=== PATIENT | male | born 1955 | race Caucasian/White ===

== ENCOUNTER 2017-06-14 05:54 | Inpatient (IN) | payer MEDICARE ==
[2017-06-14] MEDS ORDERED: Nitroglycerin 2% Oint 1 GM UD Packet ONE (06:01)
[2017-06-14] MEDS ORDERED: Nitroglycerin 0.4 MG Tab.SL ONE (06:01)
[2017-06-14] MEDS: Albuterol/Ipratropium 3.0-0.5 MG/3 ML Neb Soln ONE ×2 (06:02→07:01)
[2017-06-14] MEDS ORDERED: Nitroglycerin 0.4 MG Tab.SL SL PRN (06:08)
[2017-06-14] MEDS ORDERED: Albuterol/Ipratropium 3.0-0.5 MG/3 ML Neb Soln NEB ONE (06:08)
[2017-06-14] MEDS ORDERED: Nitroglycerin 2% Oint 1 GM UD Packet TOP ONE (06:09)
[2017-06-14] MEDS ORDERED: Sodium Chloride 0.9% 1,000 ML IV ONE (06:11)
[2017-06-14] MEDS ORDERED: Lidocaine 1% 20 ML MDV ONE ×4 (06:23→12:24)
[2017-06-14] MEDS ORDERED: HYDROmorphone 2 MG/ML Syringe IVPUSH ONE (06:30)
[2017-06-14] MEDS ORDERED: HYDROmorphone 2 MG/ML Syringe ONE (06:32)
[2017-06-14 06:36] LABS: CHLORIDE,CL 108 mmol/L (98-110); SODIUM,NA 144 mmol/L (136-146)
--- NOTE | 2017-06-14 07:04 | EDM.PDOC ---
ED HPI GENERAL MEDICAL PROBLEM - General Chief Complaint: Chest Pain Stated Complaint: HARD TIME BREATHING Time Seen by Provider: 06/14/17 06:00 Source of Information: Reports: Patient, RN - History of Present Illness INITIAL COMMENTS - FREE TEXT/NARRATIVE: He presented by private vehicle with complaint of chest pain and marked dyspnea this am. He smokes 2 packs per day. chest Pain Score (Numeric/FACES): 10 - Related Data Allergies Allergy/AdvReac Type Severity Reaction Status Date / Time No Known Allergies Allergy Verified 06/14/17 06:03 Home Meds: Home Meds Morphine [MS Contin] 60 mg PO TID 06/14/17 [History] oxyCODONE 5 mg PO TID 06/14/17 [History] ED ROS GENERAL - Review of Systems Review Of Systems: See Below Constitutional: Denies: Fever, Chills Respiratory: Reports: Shortness of Breath, Cough Cardiovascular: Reports: Chest Pain GI/Abdominal: Denies: Abdominal Pain, Black Stool, Bloody Stool, Hematemesis : Denies: Dysuria ED EXAM, GENERAL - Physical Exam Exam: See Below Free Text/Narrative:: alert appears to be in distress heart rrr without m lungs: decreased breath sounds over the right chest no ankle edema ED RESPIRATORY PROCEDURES - Additional/Other Procedure(s) Other (Free Text) Procedure(s): after verbal informed consent and infiltrative local anesthesia a 28 gh[place]ian right chest tube placed using standard technique. He tolerated the procedure without complications. post procedure chest xray shows reinflaton of the lung he feels better post procedure Dr Lorenzo Figueroa was consulted by phone by DR Frank Medina and agrees to accept admission. Course - Vital Signs Last Recorded V/S: Last Vital Signs Temp 97.6 F 06/14/17 06:05 Pulse 115 H 06/14/17 06:05 Resp 30 H 06/14/17 06:05 BP 111/75 06/14/17 06:10 Pulse Ox 80 L 06/14/17 06:05 - Orders/Labs/Meds Orders: Active Orders 24 hr Category Date Time Status EKG Documentation Completion [RC] STAT Care 06/14/17 06:09 Active RT Aerosol Therapy [RC] ASDIRECTED Care 06/14/17 06:09 Active Chest 1V Frontal [CR] Stat Exams 06/14/17 06:09 Taken Nitroglycerin [Nitrostat] Med 06/14/17 06:08 Active 0.4 mg SL Q5M PRN Sodium Chloride 0.9% [Normal Saline] 1,000 ml Med 06/14/17 06:11 Active IV .BOLUS Medication Orders Sodium Chloride (Normal Saline) 1,000 mls @ 999 mls/hr IV .BOLUS ONE Stop: 06/14/17 07:11 Last Admin: 06/14/17 06:12 Dose: 999 mls/hr Nitroglycerin (Nitrostat) 0.4 mg SL Q5M PRN PRN Reason: Chest Pain Last Admin: 06/14/17 06:05 Dose: 0.4 mg Labs: Laboratory Tests 06/14/17 06/14/17 06/14/17 Range/Units 06:00 06:00 06:00 WBC 10.88 (4.0-11.0) K/uL RBC 4.08 L (4.50-5.90) M/uL Hgb 15.6 (13.0-17.0) g/dL Hct 43.4 (38.0-50.0) % MCV 106.4 H (80.0-98.0) fL MCH 38.2 H (27.0-32.0) pg MCHC 35.9 (31.0-37.0) g/dL RDW Std Deviation 54.0 (28.0-62.0) fl RDW Coeff of Rommel 14 (11.0-15.0) % Plt Count 209 (150-400) K/uL MPV 10.70 (7.40-12.00) fL Neut % (Auto) 47.2 L (48.0-80.0) % Lymph % (Auto) 46.8 H (16.0-40.0) % [place] % (Auto) 4.7 (0.0-15.0) % Eos % (Auto) 0.9 (0.0-7.0) % Baso % (Auto) 0.4 (0.0-1.5) % Neut # (Auto) 5.1 (1.4-5.7) K/uL Lymph # (Auto) 5.1 H (0.6-2.4) K/uL [place] # (Auto) 0.5 (0.0-0.8) K/uL Eos # (Auto) 0.1 (0.0-0.7) K/uL Baso # (Auto) 0.0 (0.0-0.1) K/uL Nucleated RBC % 0.0 /100WBC Nucleated RBCs # 0 K/uL INR 1.09 (0.86-1.11) Sodium 144 (136-146) mmol/L Potassium 3.3 L (3.5-5.1) mmol/L Chloride 108 (98-110) mmol/L Carbon Dioxide 21 (21-31) mmol/L BUN 6 (6.0-23.0) mg/dL Creatinine 0.8 (0.6-1.5) mg/dL Est Cr Clr Drug Dosing 100.12 mL/min Estimated GFR (MDRD) > 60.0 ml/min Glucose 137 H (60-110) mg/dL Calcium 9.2 (8.8-10.8) mg/dL Total Bilirubin 1.6 H (0.1-1.5) mg/dL AST 37 (5-40) IU/L ALT 31 (8-54) IU/L Alkaline Phosphatase 128 (40-150) Creatine Kinase 69 (9-236) IU/L Troponin I (0.0-0.29) NG/ML Total Protein 7.1 (6.0-8.0) g/dL Albumin 4.2 (3.4-4.8) g/dL Globulin 2.9 (2.0-3.5) g/dL Albumin/Globulin Ratio 1.5 (1.3-2.8) 06/14/17 Range/Units 06:00 WBC (4.0-11.0) K/uL RBC (4.50-5.90) M/uL Hgb (13.0-17.0) g/dL Hct (38.0-50.0) % MCV (80.0-98.0) fL MCH (27.0-32.0) pg MCHC (31.0-37.0) g/dL RDW Std Deviation (28.0-62.0) fl RDW Coeff of Rommel (11.0-15.0) % Plt Count (150-400) K/uL MPV (7.40-12.00) fL Neut % (Auto) (48.0-80.0) % Lymph % (Auto) (16.0-40.0) % [place] % (Auto) (0.0-15.0) % Eos % (Auto) (0.0-7.0) % Baso % (Auto) (0.0-1.5) % Neut # (Auto) (1.4-5.7) K/uL Lymph # (Auto) (0.6-2.4) K/uL [place] # (Auto) (0.0-0.8) K/uL Eos # (Auto) (0.0-0.7) K/uL Baso # (Auto) (0.0-0.1) K/uL Nucleated RBC % /100WBC Nucleated RBCs # K/uL INR (0.86-1.11) Sodium (136-146) mmol/L Potassium (3.5-5.1) mmol/L Chloride (98-110) mmol/L Carbon Dioxide (21-31) mmol/L BUN (6.0-23.0) mg/dL Creatinine (0.6-1.5) mg/dL Est Cr Clr Drug Dosing mL/min Estimated GFR (MDRD) ml/min Glucose (60-110) mg/dL Calcium (8.8-10.8) mg/dL Total Bilirubin (0.1-1.5) mg/dL AST (5-40) IU/L ALT (8-54) IU/L Alkaline Phosphatase (40-150) Creatine Kinase (9-236) IU/L Troponin I < 0.10 (0.0-0.29) NG/ML Total Protein (6.0-8.0) g/dL Albumin (3.4-4.8) g/dL Globulin (2.0-3.5) g/dL Albumin/Globulin Ratio (1.3-2.8) Meds: Medications Generic Name Dose Route Start Last Admin Trade Name Freq PRN Reason Stop Dose Admin Sodium Chloride 1,000 mls @ 999 mls/hr 06/14/17 06:11 06/14/17 06:12 Normal Saline IV 06/14/17 07:11 999 mls/hr .BOLUS ONE Administration Nitroglycerin 0.4 mg 06/14/17 06:08 06/14/17 06:05 Nitrostat SL 0.4 mg Q5M PRN Administration Chest Pain Discontinued Medications Generic Name Dose Route Start Last Admin Trade Name Antiha PRN Reason Stop Dose Admin Albuterol/Ipratropium Confirm 06/14/17 06:00 Duoneb 3.0-0.5 Mg/3 Ml Administered 06/14/17 06:01 Dose 3 ml .ROUTE .STK-MED ONE Albuterol/Ipratropium 3 ml 06/14/17 06:08 06/14/17 06:02 Duoneb 3.0-0.5 Mg/3 Ml NEB 06/14/17 06:09 3 ml ONETIME ONE Administration Hydromorphone HCl Confirm 06/14/17 06:32 Dilaudid Administered 06/14/17 06:33 Dose 2 mg .ROUTE .STK-MED ONE Lidocaine HCl Confirm 06/14/17 06:23 Xylocaine 1% Administered 06/14/17 06:24 Dose 20 ml .ROUTE .STK-MED ONE Lidocaine HCl Confirm 06/14/17 06:35 Xylocaine 1% Administered 06/14/17 06:36 Dose 20 ml .ROUTE .STK-MED ONE Nitroglycerin Confirm 06/14/17 06:01 Nitrostat Administered 06/14/17 06:02 Dose 0.4 mg .ROUTE .STK-MED ONE Nitroglycerin Confirm 06/14/17 06:01 06/14/17 06:11 Nitro-Bid 2% Administered 06/14/17 06:02 Not Given Dose 1 gm .ROUTE .STK-MED ONE Nitroglycerin 1 gm 06/14/17 06:09 06/14/17 06:05 Nitro-Bid 2% TOP 06/14/17 06:10 1 gm ONETIME ONE Administration Departure - Departure Time of Disposition: 07:04 Disposition: Admitted As Inpatient 66 Condition: Fair Clinical Impression: Spontaneous pneumothorax - Discharge Information - My Orders Last 24 Hours: My Active Orders 06/14/17 06:08 Nitroglycerin [Nitrostat] 0.4 mg SL Q5M PRN 06/14/17 06:09 EKG Documentation Completion [RC] STAT RT Aerosol Therapy [RC] ASDIRECTED Chest 1V Frontal [CR] Stat 06/14/17 06:11 Sodium Chloride 0.9% [Normal Saline] 1,000 ml IV .BOLUS - Assessment/Plan Last 24 Hours: My Active Orders 06/14/17 06:08 Nitroglycerin [Nitrostat] 0.4 mg SL Q5M PRN 06/14/17 06:09 EKG Documentation Completion [RC] STAT RT Aerosol Therapy [RC] ASDIRECTED Chest 1V Frontal [CR] Stat 06/14/17 06:11 Sodium Chloride 0.9% [Normal Saline] 1,000 ml IV .BOLUS
[2017-06-14] MEDS ORDERED: HYDROmorphone 1 MG/ML Syringe IVPUSH ONE (07:59)
--- NOTE | 2017-06-14 08:52 | PCM.HP ---
H&P History of Present Illness - General Date of Service: 06/14/17 Admit Problem/Dx: Admission Diagnosis/Problem Admission Diagnosis/Problem Spontaneous pneumothorax Source of Information: Patient History Limitations: Reports: No Limitations - History of Present Illness Initial Comments - Free Text/Narative: 61 y/o gentleman who experienced sudden onset of shortnes of breath at 0530 hours today. Went outside to get some fresh air but could not catch his breath. Drove himself to the ER where he was found to have a 60+% right pneumothorax. Dr. Jennifer Ramachandran place a right chest tube. Post insertion chest x- ray shows good expansion. Onset of Symptoms: Reports: Today Symptom Onset Time: 05:30 Location: Reports: Chest Quality: Reports: Pressure Severity: Severe Improves with: Reports: None Worsens with: Reports: None Context: Reports: Rest Associated Symptoms: Reports: Chest Pain, Cough, Shortness of Breath. Denies: cough w sputum, Diaphoresis, Fever/Chills, Loss of Appetite, Nausea/Vomiting, Syncope chest Pain Score (Numeric/FACES): 4 - Related Data Allergies/Adverse Reactions: Allergies Allergy/AdvReac Type Severity Reaction Status Date / Time No Known Allergies Allergy Verified 06/14/17 06:03 Home Medications: Home Meds Morphine [MS Contin] 60 mg PO TID 06/14/17 [History] oxyCODONE 5 mg PO TID 06/14/17 [History] Past Medical History HEENT History: Reports: None Cardiovascular History: Reports: None Respiratory History: Reports: None, COPD Gastrointestinal History: Reports: None Genitourinary History: Reports: None Musculoskeletal History: Reports: None, Other (See Below) (Left carpal tunnel) Psychiatric History: Reports: None Endocrine/Metabolic History: Reports: None Hematologic History: Reports: None Oncologic (Cancer) History: Reports: None Dermatologic History: Reports: None - Infectious Disease History Infectious Disease History: Reports: Chicken Pox Social & Family History - Family History Family Medical History: Noncontributory - Tobacco Use Smoking Status *Q: Heavy Tobacco Smoker Years of Tobacco use: 40 Packs/Tins Daily: 2 - Recreational Drug Use Recreational Drug Use: No H&P Review of Systems - Review of Systems: Review Of Systems: See Below General: Denies: Fever, Chills HEENT: Reports: No Symptoms Pulmonary: Reports: Shortness of Breath, Cough. Denies: Wheezing, Sputum, Hemoptysis Cardiovascular: Denies: Chest Pain Gastrointestinal: Reports: Diarrhea. Denies: Abdominal Pain, Anorexia, Black Stool, Bloody Stool, Difficulty Swallowing, Distension Genitourinary: Reports: No Symptoms Musculoskeletal: Reports: No Symptoms Skin: Reports: No Symptoms Psychiatric: Reports: No Symptoms Neurological: Reports: No Symptoms Hematologic/Lymphatic: Reports: No Symptoms Immunologic: Reports: No Symptoms Exam - Exam Exam: See Below - Vital Signs Vital Signs: Last Vital Signs Temp 97.8 F 06/14/17 07:16 Pulse 78 06/14/17 07:47 Resp 19 06/14/17 07:47 BP 107/72 06/14/17 07:47 Pulse Ox 96 06/14/17 07:47 Weight: 220 lb - Exam Quality Assessment: Supplemental Oxygen General: Alert, Oriented, Cooperative, Moderate Distress HEENT: Conjunctiva Clear, EACs Clear, Pupils Equal. No: Scleral Icterus Neck: Supple, Trachea Midline Lungs: Clear to Auscultation, Crackles, Wheezing Cardiovascular: Regular Rate, Regular Rhythm. No: Tachycardia GI/Abdominal Exam: Normal Bowel Sounds, Soft, Non-Tender (Male) Exam: No Hernia Rectal (Males) Exam: Deferred Back Exam: Normal Inspection Extremities: Normal Inspection Peripheral Pulses: 4+: Posterior Tibial (L), Posterior Tibial (R), Dorsalis Pedis (L), Dorsalis Pedis (R) Skin: Warm, Dry, Intact Neurological: Cranial Nerves Intact Neuro Extensive - Mental Status: Alert, Oriented x3, Normal Mood/Affect, Normal Cognition Psychiatric: Alert, Normal Affect, Normal Mood - Patient Data Result Diagrams: 06/14/17 06:00 06/14/17 06:00 *Q Meaningful Use (ADM) - VTE *Q VTE Criteria *Q: - Stroke *Q Stroke Criteria *Q: - AMI *Q AMI Criteria *Q: - Problem List (1) Tobacco abuse SNOMED Code(s): 078169371, 991000809 ICD Code: Z72.0 - TOBACCO USE Status: Acute Current Visit: Yes (2) Spontaneous pneumothorax SNOMED Code(s): 92758380 ICD Code: J93.83 - OTHER PNEUMOTHORAX Status: Acute Current Visit: Yes Problem List Initiated/Reviewed/Updated: Yes Orders Last 24hrs: Medication Orders Nitroglycerin (Nitrostat) 0.4 mg SL Q5M PRN PRN Reason: Chest Pain Last Admin: 06/14/17 06:05 Dose: 0.4 mg Assessment/Plan Comment:: Right spontaneous pneumothorax. Chest tube to underwater seal. Good expansion post insertion. \ Admit to Inpatient for treatment and pain control. CXR in am. Incentive spirometer.
[2017-06-14] MEDS ORDERED: Ondansetron 4 MG/2 ML SDV IVPUSH PRN (08:58)
[2017-06-14] MEDS: HYDROmorphone/Normal Saline 6 MG/30 ML PCA Vial IV PRN ×3 (09:29→20:39)
[2017-06-14] MEDS: Lactated Ringers 1,000 ML IV SCH ×3 (10:06→22:49)
--- NOTE | 2017-06-14 10:23 | PCM.SN ---
- Free Text/Narrative Note: Patient has been having increasing pain since transfer from the ER. Chest tube has now developed a continuous air leak. Repeat CXR shows most proximal hole has migrated outside the pleural space. Patient will require replacement/ repositioning emergently. Replacement of the right chest tube. The operative procedure, along with the risks including but not limited to bleeding, infection, recurrence of the pneumothorax, the possibility of a prolonged air leak and the need for thoracotomy or thoracoscopy have been reviewed with the patient. The patient was given an opportunity to ask questions and his questions have been answered. He states he understands, offers no questions and wishes to proceed.
[2017-06-14] MEDS ORDERED: Ketamine 500 mg/10 ML MDV ONE (10:30)
[2017-06-14] MEDS ORDERED: Midazolam 1 MG/ML 2 ML SDV ONE ×2 (10:30→11:31)
[2017-06-14] MEDS ORDERED: fentaNYL 100 MCG/2 ML SDV ONE ×2 (10:30→11:32)
[2017-06-14] MEDS ORDERED: Propofol 200 MG/20 ML SDV ONE (10:30)
--- NOTE | 2017-06-14 10:33 | PCM.PREANE ---
Preanesthetic Assessment - Procedure Proposed Procedure: Chest Tube Insertion under Sedation - Anesthesia/Transfusion/Family Hx Anesthesia History: Prior Anesthesia Without Reaction - Review of Systems General: No Symptoms Pulmonary: Shortness of Breath Cardiovascular: No Symptoms Gastrointestinal: No Symptoms Neurological: No Symptoms Other: Reports: None - Physical Assessment NPO Status Date: 06/13/17 NPO Status Time: 00:35 O2 Sat by Pulse Oximetry: 97 Respiratory Rate: 20 Blood Pressure: 111/76 Vital Signs: Last Vital Signs Temp 36.5 C 06/14/17 09:00 Pulse 77 06/14/17 09:00 Resp 20 06/14/17 09:00 BP 128/65 06/14/17 09:00 Pulse Ox 97 06/14/17 09:00 Height: 1.78 m Weight: 99.79 kg ASA Class: 3E Mental Status: Alert & Oriented x3 Dentition: Reports: Normal Dentition ROM/Head Extension: Full Lungs: Clear to Auscultation Cardiovascular: Regular Rate, Regular Rhythm - Lab Values: Laboratory Last Values WBC 10.88 K/uL (4.0-11.0) 06/14/17 06:00 RBC 4.08 M/uL (4.50-5.90) L 06/14/17 06:00 Hgb 15.6 g/dL (13.0-17.0) 06/14/17 06:00 Hct 43.4 % (38.0-50.0) 06/14/17 06:00 MCV 106.4 fL (80.0-98.0) H 06/14/17 06:00 MCH 38.2 pg (27.0-32.0) H 06/14/17 06:00 MCHC 35.9 g/dL (31.0-37.0) 06/14/17 06:00 RDW Std Deviation 54.0 fl (28.0-62.0) 06/14/17 06:00 RDW Coeff of Rommel 14 % (11.0-15.0) 06/14/17 06:00 Plt Count 209 K/uL (150-400) 06/14/17 06:00 MPV 10.70 fL (7.40-12.00) 06/14/17 06:00 Neut % (Auto) 47.2 % (48.0-80.0) L 06/14/17 06:00 Lymph % (Auto) 46.8 % (16.0-40.0) H 06/14/17 06:00 [place] % (Auto) 4.7 % (0.0-15.0) 06/14/17 06:00 Eos % (Auto) 0.9 % (0.0-7.0) 06/14/17 06:00 Baso % (Auto) 0.4 % (0.0-1.5) 06/14/17 06:00 Neut # (Auto) 5.1 K/uL (1.4-5.7) 06/14/17 06:00 Lymph # (Auto) 5.1 K/uL (0.6-2.4) H 06/14/17 06:00 [place] # (Auto) 0.5 K/uL (0.0-0.8) 06/14/17 06:00 Eos # (Auto) 0.1 K/uL (0.0-0.7) 06/14/17 06:00 Baso # (Auto) 0.0 K/uL (0.0-0.1) 06/14/17 06:00 Nucleated RBC % 0.0 /100WBC 06/14/17 06:00 Nucleated RBCs # 0 K/uL 06/14/17 06:00 INR 1.09 (0.86-1.11) 06/14/17 06:00 Sodium 144 mmol/L (136-146) 06/14/17 06:00 Potassium 3.3 mmol/L (3.5-5.1) L 06/14/17 06:00 Chloride 108 mmol/L (98-110) 06/14/17 06:00 Carbon Dioxide 21 mmol/L (21-31) 06/14/17 06:00 BUN 6 mg/dL (6.0-23.0) 06/14/17 06:00 Creatinine 0.8 mg/dL (0.6-1.5) 06/14/17 06:00 Est Cr Clr Drug Dosing 100.12 mL/min 06/14/17 06:00 Estimated GFR (MDRD) > 60.0 ml/min 06/14/17 06:00 Glucose 137 mg/dL (60-110) H 06/14/17 06:00 Calcium 9.2 mg/dL (8.8-10.8) 06/14/17 06:00 Total Bilirubin 1.6 mg/dL (0.1-1.5) H 06/14/17 06:00 AST 37 IU/L (5-40) 06/14/17 06:00 ALT 31 IU/L (8-54) 06/14/17 06:00 Alkaline Phosphatase 128 (40-150) 06/14/17 06:00 Creatine Kinase 69 IU/L (9-236) 06/14/17 06:00 Troponin I < 0.10 NG/ML (0.0-0.29) 06/14/17 06:00 Total Protein 7.1 g/dL (6.0-8.0) 06/14/17 06:00 Albumin 4.2 g/dL (3.4-4.8) 06/14/17 06:00 Globulin 2.9 g/dL (2.0-3.5) 06/14/17 06:00 Albumin/Globulin Ratio 1.5 (1.3-2.8) 06/14/17 06:00 - Allergies Allergies/Adverse Reactions: Allergies Allergy/AdvReac Type Severity Reaction Status Date / Time No Known Allergies Allergy Verified 06/14/17 09:03 - Acknowledgements Anesthesia Type Planned: MAC Pt an Appropriate Candidate for the Planned Anesthesia: Yes Alternatives and Risks of Anesthesia Discussed w Pt/Guardian: Yes Pt/Guardian Understands and Agrees with Anesthesia Plan: Yes PreAnesthesia Questionnaire HEENT History: Reports: None Cardiovascular History: Reports: None Respiratory History: Reports: None, COPD (Pt SOB and dsypneic at this time) Gastrointestinal History: Reports: None Genitourinary History: Reports: None Musculoskeletal History: Reports: None, Other (See Below) (Left carpal tunnel, 3 back surgeries fro disc herniation, on chronic narcotics) Psychiatric History: Reports: None Endocrine/Metabolic History: Reports: None Hematologic History: Reports: None Oncologic (Cancer) History: Reports: None Dermatologic History: Reports: None - Infectious Disease History Infectious Disease History: Reports: Chicken Pox - SUBSTANCE USE Smoking Status *Q: Heavy Tobacco Smoker Tobacco Use Within Last Twelve Months: Cigarettes Recreational Drug Use History: No - HOME MEDS Home Medications: Home Meds Morphine [MS Contin] 60 mg PO TID 06/14/17 [History] oxyCODONE 5 mg PO TID 06/14/17 [History] - CURRENT (IN HOUSE) MEDS Current Meds: Current Medications Hydrocodone Bitart/Acetaminophen (Cadet 325-5 Mg) 1 - 2 tab PO Q4H PRN PRN Reason: Pain (moderate 4-6) Hydromorphone HCl (Dilaudid [employer] 6 Mg In Ns 30 Ml) 6 mg IV ASDIRECTED PRN; Protocol PRN Reason: Pain (moderate 4-6) Last Admin: 06/14/17 09:29 Dose: 6 mg Lactated Ringer's (Ringers, Lactated) 1,000 mls @ 125 mls/hr IV ASDIRECTED SAVANNA Last Admin: 06/14/17 10:06 Dose: 125 mls/hr Nitroglycerin (Nitrostat) 0.4 mg SL Q5M PRN PRN Reason: Chest Pain Last Admin: 06/14/17 06:05 Dose: 0.4 mg Ondansetron HCl (Zofran) 4 mg IVPUSH Q6H PRN PRN Reason: Nausea/Vomiting Discontinued Medications Albuterol/Ipratropium (Duoneb 3.0-0.5 Mg/3 Ml) Confirm Administered Dose 3 ml .ROUTE .STK-MED ONE Stop: 06/14/17 06:01 Last Admin: 06/14/17 07:01 Dose: Not Given Albuterol/Ipratropium (Duoneb 3.0-0.5 Mg/3 Ml) 3 ml NEB ONETIME ONE Stop: 06/14/17 06:09 Last Admin: 06/14/17 06:02 Dose: 3 ml Hydromorphone HCl (Dilaudid) Confirm Administered Dose 2 mg .ROUTE .STK-MED ONE Stop: 06/14/17 06:33 Last Admin: 06/14/17 06:32 Dose: 2 mg Hydromorphone HCl (Dilaudid) 2 mg IVPUSH ONETIME ONE Stop: 06/14/17 08:00 Last Admin: 06/14/17 08:04 Dose: 2 mg Sodium Chloride (Normal Saline) 1,000 mls @ 999 mls/hr IV .BOLUS ONE Stop: 06/14/17 07:11 Last Admin: 06/14/17 06:12 Dose: 999 mls/hr Lidocaine HCl (Xylocaine 1%) Confirm Administered Dose 20 ml .ROUTE .STK-MED ONE Stop: 06/14/17 06:24 Last Admin: 06/14/17 06:59 Dose: 20 ml Lidocaine HCl (Xylocaine 1%) Confirm Administered Dose 20 ml .ROUTE .STK-MED ONE Stop: 06/14/17 06:36 Last Admin: 06/14/17 06:59 Dose: 20 ml Nitroglycerin (Nitrostat) Confirm Administered Dose 0.4 mg .ROUTE .STK-MED ONE Stop: 06/14/17 06:02 Last Admin: 06/14/17 07:00 Dose: Not Given Nitroglycerin (Nitro-Bid 2%) Confirm Administered Dose 1 gm .ROUTE .STK-MED ONE Stop: 06/14/17 06:02 Last Admin: 06/14/17 06:11 Dose: Not Given Nitroglycerin (Nitro-Bid 2%) 1 gm TOP ONETIME ONE Stop: 06/14/17 06:10 Last Admin: 06/14/17 06:05 Dose: 1 gm
[2017-06-14] MEDS ORDERED: Bupivacaine 0.5% 30 ML SDV ONE ×2 (10:36→12:24)
--- NOTE | 2017-06-14 11:43 | PCM.OPNOTE ---
- General Post-Op/Procedure Note Date of Surgery/Procedure: 06/14/17 Operative Procedure(s): Replacement and repositioning of right chest tube Pre Op Diagnosis: Right spontaneous pneumothorax. Malposition of right chest tube. Post-Op Diagnosis: Same Anesthesia Technique: Local, MAC (ASA IIIE) Primary Surgeon: Lorenzo Figueroa Fluid Replacement, Intraop: 300 EBL in mLs: 5 Drain/Tube Comments:: 28 Thai right chest tube Condition: Fair Free Text/Narrative:: Dictation [id number]
[2017-06-14] MEDS ORDERED: fentaNYL 100 MCG/2 ML SDV IVPUSH PRN (11:44)
--- NOTE | 2017-06-14 12:17 | PCM.SN ---
- Free Text/Narrative Note: Post replacement CXR reviewed. Right lung is well expanded. Chest tube appears in appropriate position with the tip of the tube near the right apex.
--- NOTE | 2017-06-14 13:05 | PCM.PRNOTE ---
- Free Text/Narrative Note: Intercostal block performed. Fentanyl 100 mcg given to turn patient.Sterile prep and drape to Ribs 5, 6, and 7. Lidocaine infused at the skin. Nerve stimulator with blunt needle walked off each rib superior to inferior. 5 ml of 0.5% bupivicaine injected at each level. Pt tolerated well. At time of discharge from PACU pt appears comfortable.Reported pain as a 5/10
--- NOTE | 2017-06-14 13:06 | PCM.POSTAN ---
POST ANESTHESIA ASSESSMENT - MENTAL STATUS Mental Status: Alert - RESPIRATORY Respiratory Status: Respiratory Rate WNL, Airway Patent, O2 Saturation Stable - CARDIOVASCULAR CV Status: Pulse Rate WNL, Blood Pressure Stable - GASTROINTESTINAL GI Status: No Symptoms - PAIN Pain Score: 4 - POST OP HYDRATION Hydration Status: Adequate & Stable (Intercostal block completed.)
--- NOTE | 2017-06-14 13:07 | OR ---
SURGEON: Lorenzo Figueroa M.D. DATE OF PROCEDURE: 06/14/2017 OPERATION PERFORMED: Replacement with repositioning of right closed tube thoracostomy. ANESTHESIA: Local MAC. ASA CLASSIFICATION: IIIE. PREOPERATIVE DIAGNOSES: 1. Right spontaneous pneumothorax. 2. Malposition of chest tube. POSTOPERATIVE DIAGNOSES: 1. Right spontaneous pneumothorax. 2. Malposition of chest tube. ESTIMATED BLOOD LOSS: Less than 5 mL. DESCRIPTION OF PROCEDURE: The patient was taken to the operating room and placed on the operating table in the left lateral decubitus position. Time-out was called for appropriate identification of the patient and procedure. Monitored anesthesia care was provided. Intraoperative fluid replacement was 300 mL of crystalloid. With the patient now in the left lateral decubitus position and sedated, the right chest was again prepped with Betadine solution and sterile drapes were applied. The previously placed chest tube did have the proximal holes outside the body, so there was a continuous air leak. The suture holding tube in was cut and the tube removed. A 28-Nepali chest tube was placed through that incision again into the right pleural space. This was advanced to approximately 12 cm from the skin. This was then secured with 2-0 silk suture in a horizontal mattress fashion. Once the chest tube was secured and initially clamped, it was connected to the collection chamber and the clamp removed. With the tube appropriately secured with a 2-0 silk suture, which was great bind around the pleural catheter, the incision was then dressed with Xeroform gauze and 4x4s held in place with pink tape. Care was taken not to place any tape over the nipple. Once the chest tube was secured, the connection between the chest tube and pleural drainage chamber was also secured with pink tape. The chest tube was further secured to the flank again with pink tape. The patient did tolerate all of this well and was taken to recovery room in stable condition. Chest x-ray is pending. ANAMIKA / ELIZA /[id number]
[2017-06-14] MEDS: Acetaminophen/HYDROcodone 325-5 MG Tab PO PRN (20:42)
[2017-06-15] MEDS: HYDROmorphone/Normal Saline 6 MG/30 ML PCA Vial IV PRN ×3 (01:38→13:21)
[2017-06-15] MEDS: Acetaminophen/HYDROcodone 325-5 MG Tab PO PRN ×3 (06:45→19:11)
[2017-06-15] MEDS: Lactated Ringers 1,000 ML IV SCH ×2 (06:49→15:28)
[2017-06-15] MEDS ORDERED: Docusate Sodium 100 MG Cap PO PRN (08:17)
--- NOTE | 2017-06-15 08:25 | PCM.SURGPN ---
- General Info Date of Service: 06/15/17 POD#: 1 Post-Op Diagnosis: Spontaneous pneumothorax Functional Status: Reports: Pain Controlled, Tolerating Diet - Review of Systems General: Reports: Fever (low grade) HEENT: Reports: No Symptoms Pulmonary: Reports: Pleuritic Chest Pain, Cough. Denies: Shortness of Breath, Sputum, Hemoptysis Cardiovascular: Denies: Chest Pain Gastrointestinal: Reports: Constipation. Denies: Abdominal Pain Genitourinary: Reports: No Symptoms Musculoskeletal: Reports: No Symptoms Skin: Reports: No Symptoms Neurological: Reports: No Symptoms Psychiatric: Reports: No Symptoms - Patient Data Vitals - Most Recent: Last Vital Signs Temp 98.9 F 06/15/17 07:37 Pulse 86 06/15/17 07:37 Resp 20 06/15/17 07:37 BP 143/81 H 06/15/17 07:37 Pulse Ox 91 L 06/15/17 07:37 Weight - Most Recent: 218 lb 4.122 oz I&O - Last 24 Hours: Intake & Output 06/14/17 06/15/17 06/15/17 19:59 03:59 11:59 Intake Total 2199 999 2486 Output Total 405 440 Balance 7979 601 4177 Med Orders - Current: Current Medications Hydrocodone Bitart/Acetaminophen (Humble 325-5 Mg) 1 - 2 tab PO Q4H PRN PRN Reason: Pain (moderate 4-6) Last Admin: 06/15/17 06:45 Dose: 2 tab Fentanyl (Sublimaze) 50 mcg IVPUSH Q5M PRN PRN Reason: Pain Hydromorphone HCl (Dilaudid Rework Machine Operator 6 Mg In Ns 30 Ml) 6 mg IV ASDIRECTED PRN; Protocol PRN Reason: Pain (moderate 4-6) Last Admin: 06/15/17 01:38 Dose: 6 mg Lactated Ringer's (Ringers, Lactated) 1,000 mls @ 125 mls/hr IV ASDIRECTED SAVANNA Last Admin: 06/15/17 06:49 Dose: 125 mls/hr Nitroglycerin (Nitrostat) 0.4 mg SL Q5M PRN PRN Reason: Chest Pain Last Admin: 06/14/17 06:05 Dose: 0.4 mg Ondansetron HCl (Zofran) 4 mg IVPUSH Q6H PRN PRN Reason: Nausea/Vomiting Discontinued Medications Albuterol/Ipratropium (Duoneb 3.0-0.5 Mg/3 Ml) Confirm Administered Dose 3 ml .ROUTE .STK-MED ONE Stop: 06/14/17 06:01 Last Admin: 06/14/17 07:01 Dose: Not Given Albuterol/Ipratropium (Duoneb 3.0-0.5 Mg/3 Ml) 3 ml NEB ONETIME ONE Stop: 06/14/17 06:09 Last Admin: 06/14/17 06:02 Dose: 3 ml Bupivacaine HCl (Marcaine 0.5%) Confirm Administered Dose 30 ml .ROUTE .STK-MED ONE Stop: 06/14/17 10:37 Bupivacaine HCl (Marcaine 0.5%) Confirm Administered Dose 30 ml .ROUTE .STK-MED ONE Stop: 06/14/17 12:25 Fentanyl (Sublimaze) Confirm Administered Dose 100 mcg .ROUTE .STK-MED ONE Stop: 06/14/17 10:31 Fentanyl (Sublimaze) Confirm Administered Dose 100 mcg .ROUTE .STK-MED ONE Stop: 06/14/17 11:33 Hydromorphone HCl (Dilaudid) Confirm Administered Dose 2 mg .ROUTE .STK-MED ONE Stop: 06/14/17 06:33 Last Admin: 06/14/17 06:32 Dose: 2 mg Hydromorphone HCl (Dilaudid) 2 mg IVPUSH ONETIME ONE Stop: 06/14/17 08:00 Last Admin: 06/14/17 08:04 Dose: 2 mg Hydromorphone HCl (Dilaudid) 2 mg IVPUSH ONETIME ONE Stop: 06/14/17 06:31 Last Admin: 06/14/17 06:35 Dose: Not Given Sodium Chloride (Normal Saline) 1,000 mls @ 999 mls/hr IV .BOLUS ONE Stop: 06/14/17 07:11 Last Admin: 06/14/17 06:12 Dose: 999 mls/hr Ketamine HCl (Ketalar) Confirm Administered Dose 500 mg .ROUTE .STK-MED ONE Stop: 06/14/17 10:31 Lidocaine HCl (Xylocaine 1%) Confirm Administered Dose 20 ml .ROUTE .STK-MED ONE Stop: 06/14/17 06:24 Last Admin: 06/14/17 06:59 Dose: 20 ml Lidocaine HCl (Xylocaine 1%) Confirm Administered Dose 20 ml .ROUTE .STK-MED ONE Stop: 06/14/17 06:36 Last Admin: 06/14/17 06:59 Dose: 20 ml Lidocaine HCl (Xylocaine 1%) Confirm Administered Dose 20 ml .ROUTE .STK-MED ONE Stop: 06/14/17 10:44 Lidocaine HCl (Xylocaine 1%) Confirm Administered Dose 20 ml .ROUTE .STK-MED ONE Stop: 06/14/17 12:25 Midazolam HCl (Versed 1 Mg/Ml) Confirm Administered Dose 2 mg .ROUTE .STK-MED ONE Stop: 06/14/17 10:31 Midazolam HCl (Versed 1 Mg/Ml) Confirm Administered Dose 2 mg .ROUTE .STK-MED ONE Stop: 06/14/17 11:32 Nitroglycerin (Nitrostat) Confirm Administered Dose 0.4 mg .ROUTE .STK-MED ONE Stop: 06/14/17 06:02 Last Admin: 06/14/17 07:00 Dose: Not Given Nitroglycerin (Nitro-Bid 2%) Confirm Administered Dose 1 gm .ROUTE .STK-MED ONE Stop: 06/14/17 06:02 Last Admin: 06/14/17 06:11 Dose: Not Given Nitroglycerin (Nitro-Bid 2%) 1 gm TOP ONETIME ONE Stop: 06/14/17 06:10 Last Admin: 06/14/17 06:05 Dose: 1 gm Propofol (Diprivan 20 Ml) Confirm Administered Dose 200 mg .ROUTE .STK-MED ONE Stop: 06/14/17 10:31 - Exam Wound/Incisions: Healing Well, Dressing Dry and Intact Quality Assessment: Supplemental Oxygen, DVT Prophylaxis General: Alert, Oriented, Cooperative, Mild Distress HEENT: Pupils Equal, Pupils Reactive, EOMI Neck: Supple, Trachea Midline Lungs: Clear to Auscultation, Normal Respiratory Effort. No: Crackles, Rales, Rhonchi, Rub, Stridor, Wheezing Cardiovascular: Regular Rate, Regular Rhythm GI/Abdominal Exam: Normal Bowel Sounds, Soft, Non-Tender Extremities: Normal Inspection, Normal Range of Motion Skin: Warm, Dry, Intact Neurological: No New Focal Deficit Psy/Mental Status: Alert, Normal Affect, Normal Mood - Problem List & Annotations (1) Tobacco abuse SNOMED Code(s): 478060778, 392385167 Code(s): Z72.0 - TOBACCO USE Status: Acute Priority: Medium Current Visit: Yes (2) Spontaneous pneumothorax SNOMED Code(s): 23635176 Code(s): J93.83 - OTHER PNEUMOTHORAX Status: Acute Priority: High Current Visit: Yes - Problem List Review Problem List Initiated/Reviewed/Updated: Yes - My Orders Last 24 Hours: Active Orders 24 hr Category Date Time Status Antiembolic Devices [RC] PER UNIT ROUTINE Care 06/14/17 08:59 Active Communication Order [RC] ROUTINE Care 06/14/17 08:57 Active Communication Order [RC] ROUTINE Care 06/15/17 08:18 Ordered Intake and Output [RC] Q12H Care 06/14/17 08:56 Active Oxygen Therapy [RC] Q12H Care 06/14/17 08:56 Active Pulse Oximetry [RC] INTERMITTENT Care 06/14/17 08:56 Active RT Incentive Spirometry [RC] Q1HWA Care 06/14/17 08:56 Active Up ad Sophia [RC] PER UNIT ROUTINE Care 06/14/17 08:55 Active Vital Signs [RC] Q4H Care 06/14/17 08:55 Active Regular Diet [DIET] Diet 06/14/17 Dinner Active CXR [Chest 1V Frontal] [CR] AM Exams 06/15/17 05:11 Taken CXR [Chest 1V Frontal] [CR] AM Exams 06/16/17 05:11 Ordered Chest 1V Frontal [CR] Routine Exams 06/14/17 09:38 Taken Chest 1V Frontal [CR] Stat Exams 06/14/17 11:36 Taken Acetaminophen/HYDROcodone [Humble 325-5 MG] Med 06/14/17 08:58 Active 1 - 2 tab PO Q4H PRN Docusate Sodium [Colace] Med 06/15/17 08:17 Ordered 100 mg PO DAILY PRN HYDROmorphone/Normal Saline [Dilaudid CERAMIC TILE MECHANIC 6 MG in NS 30 Med 06/14/17 08:59 Active ML] 6 mg IV ASDIRECTED PRN Lactated Ringers [Ringers, Lactated] 1,000 ml Med 06/14/17 09:00 Active IV ASDIRECTED Ondansetron [Zofran] Med 06/14/17 08:58 Active 4 mg IVPUSH Q6H PRN fentaNYL [Sublimaze] Med 06/14/17 11:44 Active 50 mcg IVPUSH Q5M PRN Antiembolic Hose [OM.PC] PER UNIT ROUTINE Oth 06/15/17 06:00 Ordered Sequential Compression Device [OM.PC] Routine Oth 06/14/17 08:56 Ordered Resuscitation Status Routine Resus Stat 06/14/17 08:55 Ordered Medication Orders Hydrocodone Bitart/Acetaminophen (Humble 325-5 Mg) 1 - 2 tab PO Q4H PRN PRN Reason: Pain (moderate 4-6) Last Admin: 06/15/17 06:45 Dose: 2 tab Admin: 06/14/17 20:42 Dose: 1 tab Fentanyl (Sublimaze) 50 mcg IVPUSH Q5M PRN PRN Reason: Pain Hydromorphone HCl (Dilaudid Rework Machine Operator 6 Mg In Ns 30 Ml) 6 mg IV ASDIRECTED PRN; Protocol PRN Reason: Pain (moderate 4-6) Last Admin: 06/15/17 01:38 Dose: 6 mg Admin: 06/14/17 20:39 Dose: 6 mg Admin: 06/14/17 14:15 Dose: 6 mg Admin: 06/14/17 09:29 Dose: 6 mg Lactated Ringer's (Ringers, Lactated) 1,000 mls @ 125 mls/hr IV ASDIRECTED SAVANNA Last Admin: 06/15/17 06:49 Dose: 125 mls/hr Infusion: 06/15/17 06:49 Dose: 125 mls/hr Admin: 06/14/17 22:49 Dose: 125 mls/hr Infusion: 06/14/17 22:15 Dose: 125 mls/hr Admin: 06/14/17 14:15 Dose: 125 mls/hr Infusion: 06/14/17 14:15 Dose: 125 mls/hr Admin: 06/14/17 10:06 Dose: 125 mls/hr Nitroglycerin (Nitrostat) 0.4 mg SL Q5M PRN PRN Reason: Chest Pain Last Admin: 06/14/17 06:05 Dose: 0.4 mg Ondansetron HCl (Zofran) 4 mg IVPUSH Q6H PRN PRN Reason: Nausea/Vomiting - Assessment Assessment (Free Text/Narrative):: Stable--lung well expanded. Does have subcutaneous emphysema today. CXR shows lung is well expanded. No air leak. - Plan Plan (Free Text/Narrative):: Continue CT to suction today. Will try underwater seal only at 0600 tomorrow and CXR 2-3 hours later.
--- NOTE | 2017-06-15 13:54 | PCM.SN ---
- Free Text/Narrative Note: Patient is developing moderate subcutaneous emphysema now extending into his neck and face. No airway compromise. Lungs remain clear with symmetrical breath sounds. Chest tube still shows an air leak today. Will still give him a trial of underwater seal tomorrow. If he shows any sign of shortness of breath he will need to be back on suction. If there is any recurrence of pneumothorax on underwater seal, he will need to be transferred to [place].
--- NOTE | 2017-06-15 16:03 | PCM.SN ---
- Free Text/Narrative Note: Called as patient had worsening of his SQ emphysema and left eye was almost swollen shut. Nursing staff had also noticed some wheezing in the left base. Patient states he is better now and can see out of his left eye. Face again demonstrates significant subcutaneous emphysema. Lungs are clear with a few crackles. No wheezing at this time. I do not appreciate a significant air leak at this time. ASSESSMENT: Spontaneous right pneumothorax secondary to COPD and tobacco abuse. New onset SQ emphysema which I think is related to the initial chest tube coming and having to be replaced. PLAN: Will continue CT to suction today. Patient was given the option of transfer to [place] today but he would prefer to wait and see how he is tomorrow. I don't think this is compromising his care or status.
[2017-06-15] MEDS ORDERED: Albuterol/Ipratropium 3.0-0.5 MG/3 ML Neb Soln ONE (16:10)
--- NOTE | 2017-06-15 18:51 | PCM.DCSUM1 ---
Discharge Summary - Hospital Course Free Text/Narrative:: 61 y/o gentleman admitted 06/14 with a spontaneous right pneumothorax. CT was placed in ER but became dislodged and was replaced in the OR yesterday. has been on 20cms suction since replacement. Did well yesterday but developed SQ emphysema today. This has gradually gotten worse. CT shows what I think is a small air leak. CXR today showed right lung was well expanded and I did not see any residual pneumothorax. SQ emphysema has now spread into his face and eyelids. He is willing to accept transfer to a higher level of care. HPI Initial Comments: Acute onset of shortness of breath at 0530 hours on 06/14. Brief History: Right spontaneous pneumothorax after coughing spell on 06/14. Acutely short of breath. Drove himself to the hospital. 28Fr CT placed in ER that became dislodged and was completely replaced with another [address] inserted to 12 cms. Post placement CXR showed good placement. CT is in same position on CXR today. - Discharge Data Discharge Date: 06/15/17 Discharge Disposition: DC/Tfer to Acute Hospital 02 Condition: Fair - Discharge Diagnosis/Problem(s) (1) Tobacco abuse SNOMED Code(s): 979804903, 390297307 ICD Code: Z72.0 - TOBACCO USE Status: Acute Priority: Medium Current Visit: Yes (2) Spontaneous pneumothorax SNOMED Code(s): 62883380 ICD Code: J93.83 - OTHER PNEUMOTHORAX Status: Acute Priority: High Current Visit: Yes - Patient Summary/Data Operative Procedure(s) Performed: Replacement and repositioning of right chest tube Consults: Consultations 06/15/17 15:56 Consult to Respiratory Therapy [Respiratory Care Assess and Treatment] [CONS] Routine - Patient Instructions Diet: Usual Diet as Tolerated Activity: Rest and Relax Today Activity, Other: Bedrest, HOB up 60 degrees for transfer Driving: Do Not Drive - Discharge Plan Home Medications: Home Meds Morphine [MS Contin] 60 mg PO TID 06/14/17 [History] oxyCODONE 5 mg PO TID 06/14/17 [History] Forms: ED Department Discharge Referrals: Osito Camilo MD [Primary Care Provider] - - Discharge Summary/Plan Comment DC Time >30 min.: Yes Discharge Summary/Plan Comment: See above dictation. Patient being transferred to higher level of care for worsening subcutaneous emphysema and the possible need for thoracoscopy. Etiology of pneumothorax is COPD and possibility of a large ruptured bleb. - General Info Date of Service: 06/15/17 Admission Dx/Problem (Free Text: Admission Diagnosis/Problem Admission Diagnosis/Problem Spontaneous pneumothorax Functional Status: Reports: Pain Controlled, Tolerating Diet, Incentive Spirometry - Review of Systems General: Denies: Fever, Weakness, Fatigue, Malaise HEENT: Reports: No Symptoms Pulmonary: Reports: No Symptoms, Shortness of Breath Cardiovascular: Reports: Chest Pain, Other (SQ emphysema) Gastrointestinal: Reports: No Symptoms Genitourinary: Reports: No Symptoms Musculoskeletal: Reports: Neck Pain, Shoulder Pain Skin: Denies: Cyanosis, Jaundice, Mottled, Pallor, Diaphoresis Neurological: Reports: No Symptoms Psychiatric: Reports: No Symptoms - Patient Data Vitals - Most Recent: Last Vital Signs Temp 97.8 F 06/15/17 15:59 Pulse 91 06/15/17 15:59 Resp 20 06/15/17 15:59 BP 154/94 H 06/15/17 15:59 Pulse Ox 92 L 06/15/17 18:00 Weight - Most Recent: 218 lb 4.122 oz I&O - Last 24 hours: Intake & Output 06/15/17 06/15/17 06/15/17 03:59 11:59 19:59 Intake Total 999 2486 1550 Output Total 440 950 Balance 999 2046 600 Med Orders - Current: Current Medications Hydrocodone Bitart/Acetaminophen (Cooper 325-5 Mg) 1 - 2 tab PO Q4H PRN PRN Reason: Pain (moderate 4-6) Last Admin: 06/15/17 13:50 Dose: 2 tab Docusate Sodium (Colace) 100 mg PO DAILY PRN PRN Reason: Constipation Last Admin: 06/15/17 10:53 Dose: 100 mg Fentanyl (Sublimaze) 50 mcg IVPUSH Q5M PRN PRN Reason: Pain Hydromorphone HCl (Dilaudid Transportation Associate 6 Mg In Ns 30 Ml) 6 mg IV ASDIRECTED PRN; Protocol PRN Reason: Pain (moderate 4-6) Last Admin: 06/15/17 13:21 Dose: 6 mg Lactated Ringer's (Ringers, Lactated) 1,000 mls @ 125 mls/hr IV ASDIRECTED SAVANNA Last Admin: 06/15/17 15:28 Dose: 125 mls/hr Nitroglycerin (Nitrostat) 0.4 mg SL Q5M PRN PRN Reason: Chest Pain Last Admin: 06/14/17 06:05 Dose: 0.4 mg Ondansetron HCl (Zofran) 4 mg IVPUSH Q6H PRN PRN Reason: Nausea/Vomiting Discontinued Medications Albuterol/Ipratropium (Duoneb 3.0-0.5 Mg/3 Ml) Confirm Administered Dose 3 ml .ROUTE .STK-MED ONE Stop: 06/14/17 06:01 Last Admin: 06/14/17 07:01 Dose: Not Given Albuterol/Ipratropium (Duoneb 3.0-0.5 Mg/3 Ml) 3 ml NEB ONETIME ONE Stop: 06/14/17 06:09 Last Admin: 06/14/17 06:02 Dose: 3 ml Albuterol/Ipratropium (Duoneb 3.0-0.5 Mg/3 Ml) Confirm Administered Dose 3 ml .ROUTE .STK-MED ONE Stop: 06/15/17 16:11 Last Admin: 06/15/17 17:14 Dose: Not Given Bupivacaine HCl (Marcaine 0.5%) Confirm Administered Dose 30 ml .ROUTE .STK-MED ONE Stop: 06/14/17 10:37 Bupivacaine HCl (Marcaine 0.5%) Confirm Administered Dose 30 ml .ROUTE .STK-MED ONE Stop: 06/14/17 12:25 Fentanyl (Sublimaze) Confirm Administered Dose 100 mcg .ROUTE .STK-MED ONE Stop: 06/14/17 10:31 Fentanyl (Sublimaze) Confirm Administered Dose 100 mcg .ROUTE .STK-MED ONE Stop: 06/14/17 11:33 Hydromorphone HCl (Dilaudid) Confirm Administered Dose 2 mg .ROUTE .STK-MED ONE Stop: 06/14/17 06:33 Last Admin: 06/14/17 06:32 Dose: 2 mg Hydromorphone HCl (Dilaudid) 2 mg IVPUSH ONETIME ONE Stop: 06/14/17 08:00 Last Admin: 06/14/17 08:04 Dose: 2 mg Hydromorphone HCl (Dilaudid) 2 mg IVPUSH ONETIME ONE Stop: 06/14/17 06:31 Last Admin: 06/14/17 06:35 Dose: Not Given Sodium Chloride (Normal Saline) 1,000 mls @ 999 mls/hr IV .BOLUS ONE Stop: 06/14/17 07:11 Last Admin: 06/14/17 06:12 Dose: 999 mls/hr Ketamine HCl (Ketalar) Confirm Administered Dose 500 mg .ROUTE .STK-MED ONE Stop: 06/14/17 10:31 Lidocaine HCl (Xylocaine 1%) Confirm Administered Dose 20 ml .ROUTE .STK-MED ONE Stop: 06/14/17 06:24 Last Admin: 06/14/17 06:59 Dose: 20 ml Lidocaine HCl (Xylocaine 1%) Confirm Administered Dose 20 ml .ROUTE .STK-MED ONE Stop: 06/14/17 06:36 Last Admin: 06/14/17 06:59 Dose: 20 ml Lidocaine HCl (Xylocaine 1%) Confirm Administered Dose 20 ml .ROUTE .STK-MED ONE Stop: 06/14/17 10:44 Lidocaine HCl (Xylocaine 1%) Confirm Administered Dose 20 ml .ROUTE .STK-MED ONE Stop: 06/14/17 12:25 Midazolam HCl (Versed 1 Mg/Ml) Confirm Administered Dose 2 mg .ROUTE .STK-MED ONE Stop: 06/14/17 10:31 Midazolam HCl (Versed 1 Mg/Ml) Confirm Administered Dose 2 mg .ROUTE .STK-MED ONE Stop: 06/14/17 11:32 Nitroglycerin (Nitrostat) Confirm Administered Dose 0.4 mg .ROUTE .STK-MED ONE Stop: 06/14/17 06:02 Last Admin: 06/14/17 07:00 Dose: Not Given Nitroglycerin (Nitro-Bid 2%) Confirm Administered Dose 1 gm .ROUTE .STK-MED ONE Stop: 06/14/17 06:02 Last Admin: 06/14/17 06:11 Dose: Not Given Nitroglycerin (Nitro-Bid 2%) 1 gm TOP ONETIME ONE Stop: 06/14/17 06:10 Last Admin: 06/14/17 06:05 Dose: 1 gm Propofol (Diprivan 20 Ml) Confirm Administered Dose 200 mg .ROUTE .STK-MED ONE Stop: 06/14/17 10:31 - Exam Quality Assessment: Reports: Supplemental Oxygen General: Reports: Alert, Oriented, Cooperative, Moderate Distress HEENT: Reports: Pupils Equal, Pupils Reactive, EOMI, Mucous Membr. Moist/Hobbs Neck: Reports: Supple Lungs: Reports: Clear to Auscultation, Normal Respiratory Effort Cardiovascular: Reports: Regular Rate, Regular Rhythm GI/Abdominal Exam: Normal Bowel Sounds, Soft, Non-Tender, No Distention Rectal (Males) Exam: Deferred Back Exam: Reports: Normal Inspection Extremities: Normal Inspection, Normal Range of Motion, Non-Tender Skin: Reports: Warm, Dry, Intact Wound/Incisions: Reports: Dressing Dry and Intact Neurological: Reports: No New Focal Deficit Psy/Mental Status: Reports: Alert, Normal Affect, Normal Mood Discharge Operative/Procedures - Procedures Performed LP Indication: CSF analysis Arterial Line Indication: hemodynamic monitoring Chest Tube Indication: pneumothorax (Spontaneous pneumothorax on 06/14.) *Q Meaningful Use (DIS) - VTE *Q VTE Criteria *Q: - Stroke *Q Stroke Criteria *Q: - AMI *Q AMI Criteria *Q:
[2017-06-15 19:53] VITALS: BP 144/90
[2017-06-15] MEDS ORDERED: Albuterol/Ipratropium 3.0-0.5 MG/3 ML Neb Soln NEB PRN (20:00)
--- NOTE | 2017-06-16 10:55 | CR ---
EXAM DATE: 06/14/17 PATIENT'S AGE: 61 Patient: [facility] Facility: [place], [place] Site . Site : 1955 Study: XRay Chest [id number]/26/2017 6:13:53 AM Ordering Physician: Madie Ramon Final Report: INDICATION: CHEST PAIN, SOB TECHNIQUE: Chest 1 view COMPARISON: None FINDINGS: Cardiovascular and mediastinum: Heart size and vasculature are normal in caliber and appearance. Mediastinum is within normal limits. Lungs and pleural space: Greater than 75 percent pneumothorax with no mediastinal shift. Bones and soft tissues: No significant findings. IMPRESSION: Greater than 75 percent pneumothorax with no mediastinal shift. Dictated by Torrey Bowen MD @ 06/14/2017 6:40:06 AM Dictated by: Torrey Bowen MD @ 06/14/2017 06:40:34 (Electronic Signature) Report Signed by Proxy. MTDAaron
--- NOTE | 2017-06-16 10:56 | CR ---
EXAM DATE: 06/14/17 PATIENT'S AGE: 61 Patient: [facility] Facility: [place], [place] Site . Site : 1955 Study: XRay Chest [id number]/26/2017 7:04:14 AM Ordering Physician: Madie Ramon Final Report: HISTORY: Chest tube placement. Technique: Portable frontal view of the chest. Comparison: Chest x-ray 06/14/2017 at 6:06 hours. Findings: New right basilar chest tube. Right lung is re-expanded. No residual pneumothorax. Right basilar atelectasis. No focal consolidation. No left pleural effusion or pneumothorax. Cardiomediastinal silhouette is within normal limits for technique. Small amount of gas in the chest wall related to the chest tube. Impression: New right chest tube with re-expansion of the right lung and no residual pneumothorax. Dictated by Caesar Harvey MD @ Jun 14 2017 7:25AM (Electronic Signature) Report Signed by Proxy. [place]
--- NOTE | 2017-06-16 10:57 | CR ---
EXAM DATE: 06/14/17 PATIENT'S AGE: 61 Patient: [facility] Facility: [place], [place] Site . Site : 1955 Study: XRay Chest [id number]/26/2017 10:08:00 AM Ordering Physician: Henry Ventura Final Report: INDICATION: CHECK CHEST TUBE PLACEMENT TECHNIQUE: AP semi-upright portable chest film submitted. COMPARISON: Portable chest film earlier today at 6:58 am. FINDINGS: Since the earlier film, the chest tube at the right lung base has been pulled back some. The tip of the chest tube is projected over the right lung base, approximately 2 cm lateral to the inferior right hilum. No pneumothorax. Small amount of subcutaneous emphysema along the right chest wall adjacent to the chest tube. Minimal atelectatic change at the right lung base. Heart size is normal. IMPRESSION: Slight change in the position of the right chest tube since the film earlier today. No evidence for pneumothorax. Dictated by Fan Rincon MD @ 06/14/2017 10:40:01 AM Dictated by: Fan Rincon MD @ 06/14/2017 10:40:08 (Electronic Signature) Report Signed by Proxy. [place]
--- NOTE | 2017-06-16 11:06 | CR ---
EXAM DATE: 06/14/17 PATIENT'S AGE: 61 Patient: [facility] Facility: [place], [place] Site . Site : 1955 Study: XRay Chest [id number]/26/2017 12:13:01 PM Ordering Physician: Henry Ventura Final Report: Replaced right chest tube Technique: Portable chest. Comparison: Chest x-ray 06/14/2017. Findings : Stable cardiac mediastinal silhouette. Diffuse prominence of the interstitial markings. Right apical chest tube. No definite pneumothorax seen. Right-sided emphysema. Bandlike opacity left lateral chest could represent an area of fibrotic change Impression: 1. New right apical chest tube. No pneumothorax seen. 2. Diffuse prominence interstitial markings could reflect pulmonary edema. Dictated by Francesca Mehta MD @ Jun 14 2017 12:50PM (Electronic Signature) Report Signed by Proxy. [facility]
--- NOTE | 2017-06-16 13:17 | CR ---
EXAM DATE: 06/14/17 PATIENT'S AGE: 61 Patient: [facility] Facility: [place], [place] Site . Site : 1955 Study: XRay Chest [id number]/27/2017 7:19:43 AM Ordering Physician: Henry Ventura Final Report: HISTORY: Spontaneous pneumothorax. Chest tube. Technique: Portable frontal view of the chest. Comparison: Chest x-ray 06/14/2017. Findings: Right chest tube is unchanged. No definite pneumothorax. Extensive soft tissue emphysema throughout the chest wall and lower neck, increased from prior. Diffuse prominence of the interstitial markings, unchanged. No focal consolidation. No pleural effusion. The cardiomediastinal silhouette is unchanged. Impression: Extensive soft tissue emphysema in the chest wall and lower neck, significantly increased from most recent comparison radiograph. Unchanged right chest tube. No definite pneumothorax. Dictated by Caesar Harvey MD @ Jun 15 2017 7:42AM (Electronic Signature) Report Signed by Proxy. [place]
== END 2017-06-15 19:30 | DRG 201 ==
LOC: MW.ED 05:54 → MW.MS 07:21
PROVIDERS: ADMIT Surgery; ATTEND Surgery
PROC: 0W9930Z Drainage of Right Pleural Cavity with Drainage Device, Percutaneous Approach (ICD-10-PCS; principal; 2017-06-14)
DX: J93.83 Other pneumothorax (principal); J98.2 Interstitial emphysema; J44.9 Chronic obstructive pulmonary disease, unspecified; F17.210 Nicotine dependence, cigarettes, uncomplicated; Z79.899 Other long term (current) drug therapy
CPT/HCPCS: 32551; 71010 ×2; 80053; 82550; 84484; 85025; 85610; 93005; 96361; 96374; 99285; A9270 ×2; J1170; J7040; 00320; 64420; 94640; 96376; 99283; J2250; J2704; J3010; J7120

== ENCOUNTER 2017-07-23 12:01 | Inpatient (IN) | payer MEDICARE ==
--- NOTE | 2017-07-23 11:47 | EDM.PDOC ---
ED HPI GENERAL MEDICAL PROBLEM - General Stated Complaint: UNK Time Seen by Provider: 07/23/17 12:02 - History of Present Illness INITIAL COMMENTS - FREE TEXT/NARRATIVE: HISTORY AND PHYSICAL: History of present illness: The patient is a complicated 62-year-old male who is coming from [facility] and the office of Dr. Camilo for evaluation of hypoxia and dyspnea and failure of outpatient treatment. According to this patient's history has a long- standing history of COPD and was a smoker and was admitted here the end of May for spontaneous right pneumothorax. The patient was transferred on June [address] [facility] for persistent air leak with the chest tube and he had a complicated course there which kept him as an inpatient until just recently, July 17 when he was discharged. Throughout the course of that hospitalization he developed MRSA pneumonia empyema multiple air leaks and multiple chest tube placements. When the patient was discharged from [facility] he required no oxygen during the day but was using 2 L with sleep. The patient has been receiving IV infusions of vancomycin at our outpatient clinic and according to the nurses at the clinic yesterday he looked poorly yesterday but he refused to go to the ER. His hemoglobin yesterday was 7.8. His discharge hemoglobin on July [address] Camilo said that the patient looks very breathless and came in hypoxic requiring 2-4 L of oxygen to maintain his sats in the 80s. He did a CBC with differential chemistry panel a chest x-ray and a sedimentation rate over there and he will send me those results. According to Dr. Camilo he does not see a pneumothorax on the right side but he says the chest x-ray looks worse than the one that was done at the patient's discharge. The patient is coming over for evaluation of his hypoxia and his labs as well as to be facilitated for transfer back to [facility] by ambulance. We will also be starting antibiotics pending the results of all the tests that we perform as well as those sent over from the office. The chest x- ray will be forwarded to us by [facility] to be read by our radiologist. On arrival here in the ER via EMS the patient presents with his discharge summary from [facility] which I will review and please see highlights below. He also presents his blood work performed there including CBC with differential and chemistry panel. Today he has a hemoglobin of 8.1 although was reported to be 7.8 yesterday. The patient states he does have a dialysis catheter in place and only received dialysis twice while in the hospital and their driver education road instructor has been monitoring his numbers and today's creatinine is 1.93 with the BUNs of 25 potassium of 4.2 and bicarbonate of 24. When asked the patient brought him into the clinic today he said that he has just been feeling generalized weakness run down and fatigued for the last several days and he has had a low- grade fever. He has had a cough occasionally productive of phlegm but not excessive and he has not had an appetite. He has had no nausea vomiting or diarrhea and no abdominal pain chest pain. He has no runny nose or sore throat. He has been urinating normally. According to Dr. Camilo when he arrived there is O2 sats were in the 70s on room air. Here in the ED the patient feels comfortable on oxygen and says that other than feeling tired and run down he overall feels at his baseline. Review of systems: As per history of present illness and below otherwise all systems reviewed and negative. Past medical history: As per history of present illness and as reviewed below otherwise noncontributory. Surgical history: As per history of present illness and as reviewed below otherwise noncontributory. Social history: No reported history of drug or alcohol abuse. Family history: As per history of present illness and as reviewed below otherwise noncontributory. Physical exam: General: Well-developed thin man who is nontoxic and speaking clearly and easily in the ED without breathlessness. Vital signs of the note by me HEENT: Atraumatic, normocephalic, pupils reactive, there is some conjunctival pallor but no scleral icterus, mucous membranes moist, throat clear, neck supple , nontender, trachea midline. Lungs: Clear to auscultation coarse breath sounds bilaterally but no stridor or wheezing and diminished breath sounds at the right base. The, breath sounds equal bilaterally, chest nontender. He has a dialysis catheter seen at the right anterior chest wall and a PICC line is in place at the right upper extremity. Heart: S1S2, regular, negative for clicks, rubs, or JVD. Abdomen: Soft, nondistended, nontender. Bowel sounds are normoactive Negative for masses or hepatosplenomegaly. Negative for costovertebral tenderness. Pelvis: Stable nontender. Genitourinary: Deferred. Rectal: Deferred. Extremities: Atraumatic, negative for cords or calf pain. Neurovascular unremarkable. Patient has wraps on his legs bilaterally and there is some edema but no leg asymmetry Neuro: Awake, alert, oriented. Cranial nerves II through XII unremarkable. Motor and sensory unremarkable throughout. Exam nonfocal. Skin: No diaphoresis, turgor is slightly diminished, there is a sallow overall coloring to the patient but there are no overt rashes or lesions. Around the dialysis catheter at the right chest wall there is resolving ecchymosis which is nontender no swelling and no erythema Diagnostics: CBC CMP and chest x-ray were performed at the clinic as reviewed by me EKG lactic acid blood cultures 2, one through the PICC line and one peripherally, UA urine culture Therapeutics: Patient has been receiving vancomycin through his PICC line daily and did not get today's dose, DuoNeb, gentle IV fluids Please note that the chest x-ray from [facility] was sent here and our radiologist Dr. Hilario has reviewed it with me. He states the patient has a PICC line in place as well as a dialysis catheter area he has a small right pleural effusion which is loculated and he has scarring in bilateral lungs but no pneumothorax. According to the discharge papers he was sent home on vancomycin weekly as well as lab tests, prednisone 5 mg every other day for 2 weeks, folic acid daily, DuoNeb 4 times a day, morphine 60 mg every 12 hours, oxycodone 5 mg 3 times a day when necessary, MiraLAX atorvastatin do collects and thiamine. He states that the patient had multiple consultations and was on BiPAP along with having multiple chest tubes and antibiotics. He was seen by the driver education road instructor, , for an acute renal injury stage III and according to the patient he had 2 episodes of dialysis. They felt that the renal injury was sepsis related. 1230: Case was discussed with the hospitalist Dr. Santos who came down to see the patient at this time. His reviewed the discharge information as well as today's labs and evaluated the patient. He agrees to admission here and will write for antibiotics to be given on the floor. He requests that I give a dose of prednisone 40 mg now. He is discussed with the patient admission and patient is agreeable. Impression: Dyspnea/hypoxia/rule out new right pneumonia with history of protracted medical illness Definitive disposition and diagnosis as appropriate pending reevaluation and review of above. lower back Pain Score (Numeric/FACES): 8 - Related Data Allergies Allergy/AdvReac Type Severity Reaction Status Date / Time No Known Allergies Allergy Verified 07/23/17 11:57 Home Meds: Home Meds Morphine [MS Contin] 60 mg PO TID 06/14/17 [History] oxyCODONE 5 mg PO TID 06/14/17 [History] Albuterol/Ipratropium [DuoNeb 3.0-0.5 MG/3 ML] 3 ml NEB Q4HRRT 07/23/17 [History ] Folic Acid 1 mg PO DAILY 07/23/17 [History] Polyethylene Glycol 3350 [MiraLAX] 17 gm PO DAILY 07/23/17 [History] Prednisone [IJD: Prednisone] 5 mg PO ASDIRECTED 07/23/17 [History] Sennosides/Docusate Sodium [Senna S Tablet] 1 tab PO BID PRN 07/23/17 [History] Vancomycin 1.25 gm IV Q24H 07/23/17 [History] atorvaSTATin [Lipitor] 80 mg PO BEDTIME 07/23/17 [History] Past Medical History HEENT History: Reports: None Cardiovascular History: Reports: None Respiratory History: Reports: None, COPD (Pt SOB and dsypneic at this time) Gastrointestinal History: Reports: None Genitourinary History: Reports: None Musculoskeletal History: Reports: None, Other (See Below) (Left carpal tunnel, 3 back surgeries fro disc herniation, on chronic narcotics) Psychiatric History: Reports: None Endocrine/Metabolic History: Reports: None Hematologic History: Reports: None Oncologic (Cancer) History: Reports: None Dermatologic History: Reports: None - Infectious Disease History Infectious Disease History: Reports: Chicken Pox Social & Family History - Family History Family Medical History: Noncontributory - Tobacco Use Smoking Status *Q: Heavy Tobacco Smoker Years of Tobacco use: 40 Packs/Tins Daily: 2 - Recreational Drug Use Recreational Drug Use: No ED ROS GENERAL - Review of Systems Review Of Systems: ROS reveals no pertinent complaints other than HPI. ED EXAM, GENERAL - Physical Exam Exam: See Below (See dictation) Course - Vital Signs Last Recorded V/S: Last Vital Signs Temp 36.4 C 07/23/17 12:00 Pulse 101 H 07/23/17 12:00 Resp 28 H 07/23/17 12:00 BP 138/66 07/23/17 12:00 Pulse Ox 95 07/23/17 12:00 - Orders/Labs/Meds Orders: Active Orders 24 hr Category Date Time Status Patient Status [ADT] Stat ADT 07/23/17 13:01 Ordered Cardiac Monitoring [RC] . DIRECTED Care 07/23/17 12:16 Active EKG Documentation Completion [RC] STAT Care 07/23/17 12:16 Active Oxygen Therapy, ED [RC] ASDIRECTED Care 07/23/17 12:16 Active Pulse Oximetry [RC] ASDIRECTED Care 07/23/17 12:16 Active RT Aerosol Therapy [RC] ASDIRECTED Care 07/23/17 12:18 Active CULTURE BLOOD [BC] Stat Lab 07/23/17 12:25 Received CULTURE BLOOD [BC] Stat Lab 07/23/17 12:36 Received CULTURE URINE [RM] Stat Lab 07/23/17 12:16 Uncollected TYPE AND SCREEN [BBK] Stat Lab 07/23/17 12:36 Received UA W/MICROSCOPIC [URIN] Stat Lab 07/23/17 12:16 Uncollected Sodium Chloride 0.9% [Normal Saline] 1,000 ml Med 07/23/17 12:30 Active IV ASDIRECTED predniSONE Med 07/23/17 13:01 Once 40 mg PO ONETIME ONE Blood Culture x2 Reflex Set [OM.PC] Stat Oth 07/23/17 12:17 Ordered Medication Orders Sodium Chloride (Normal Saline) 1,000 mls @ 100 mls/hr IV ASDIRECTED SAVANNA Last Infusion: 07/23/17 12:57 Dose: 999 mls/hr Admin: 07/23/17 12:57 Dose: 100 mls/hr Labs: Laboratory Tests 07/23/17 Range/Units 12:36 Lactate 0.9 (0.20-2.00) mmol/L Meds: Medications Generic Name Dose Route Start Last Admin Trade Name Freq PRN Reason Stop Dose Admin Sodium Chloride 1,000 mls @ 100 mls/hr 07/23/17 12:30 07/23/17 12:57 Normal Saline IV 999 mls/hr ASDIRECTED SAVANNA Infusion Discontinued Medications Generic Name Dose Route Start Last Admin Trade Name Qamarq PRN Reason Stop Dose Admin Albuterol/Ipratropium 3 ml 07/23/17 12:17 Duoneb 3.0-0.5 Mg/3 Ml NEB 07/23/17 12:18 ONETIME ONE Departure - Departure Time of Disposition: 13:04 Disposition: Admitted As Inpatient 66 Condition: Good Clinical Impression: Dyspnea and respiratory abnormalities - Discharge Information - My Orders Last 24 Hours: My Active Orders 07/23/17 12:16 Cardiac Monitoring [RC] . DIRECTED EKG Documentation Completion [RC] STAT Oxygen Therapy, ED [RC] ASDIRECTED Pulse Oximetry [RC] ASDIRECTED CULTURE URINE [RM] Stat UA W/MICROSCOPIC [URIN] Stat 07/23/17 12:17 Blood Culture x2 Reflex Set [OM.PC] Stat 07/23/17 12:18 RT Aerosol Therapy [RC] ASDIRECTED 07/23/17 12:25 CULTURE BLOOD [BC] Stat 07/23/17 12:30 Sodium Chloride 0.9% [Normal Saline] 1,000 ml IV ASDIRECTED 07/23/17 12:36 CULTURE BLOOD [BC] Stat TYPE AND SCREEN [BBK] Stat 07/23/17 13:01 Patient Status [ADT] Stat predniSONE 40 mg PO ONETIME ONE - Assessment/Plan Last 24 Hours: My Active Orders 07/23/17 12:16 Cardiac Monitoring [RC] . DIRECTED EKG Documentation Completion [RC] STAT Oxygen Therapy, ED [RC] ASDIRECTED Pulse Oximetry [RC] ASDIRECTED CULTURE URINE [RM] Stat UA W/MICROSCOPIC [URIN] Stat 07/23/17 12:17 Blood Culture x2 Reflex Set [OM.PC] Stat 07/23/17 12:18 RT Aerosol Therapy [RC] ASDIRECTED 07/23/17 12:25 CULTURE BLOOD [BC] Stat 07/23/17 12:30 Sodium Chloride 0.9% [Normal Saline] 1,000 ml IV ASDIRECTED 07/23/17 12:36 CULTURE BLOOD [BC] Stat TYPE AND SCREEN [BBK] Stat 07/23/17 13:01 Patient Status [ADT] Stat predniSONE 40 mg PO ONETIME ONE
[2017-07-23] MEDS ORDERED: Albuterol/Ipratropium 3.0-0.5 MG/3 ML Neb Soln NEB ONE (12:17)
[2017-07-23] MEDS ORDERED: Sodium Chloride 0.9% 1,000 ML IV SCH (12:30)
[2017-07-23] MEDS ORDERED: predniSONE 20 MG Tab PO ONE (13:01)
[2017-07-23] MEDS: Piperacillin/Tazobactam 3.375 GM in Sodium Chloride 0.9% 50 ML IV SCH ×2 (15:18→20:28)
[2017-07-23] MEDS: predniSONE 20 MG Tab PO SCH (15:18)
--- NOTE | 2017-07-23 15:21 | PCM.HP ---
H&P History of Present Illness - General Admit Problem/Dx: Admission Diagnosis/Problem Admission Diagnosis/Problem Dyspnea - History of Present Illness Initial Comments - Free Text/Narative: 62 yo male with pmh of COPD with recent hospitalization in May regarding spontaneous pneumothorax with complications of MRSA empyema and kidney failure requiring short term dialysis. Since discharge he has been doing well until past week he reports increasing weakness, shortness of breath, cough, malaise and chills. He is receiving vancomycin via PICC as an outpatient. He was seen in [facility]'s clinic and noted to be satting 70% on RA with chest x-ray that shows left basilar infiltrate possible small pleural effusion. lower back Pain Score (Numeric/FACES): 8 - Related Data Allergies/Adverse Reactions: Allergies Allergy/AdvReac Type Severity Reaction Status Date / Time No Known Allergies Allergy Verified 07/23/17 11:57 Home Medications: Home Meds oxyCODONE 5 mg PO TID PRN 06/14/17 [History] Albuterol/Ipratropium [DuoNeb 3.0-0.5 MG/3 ML] 3 ml NEB Q4HRRT 07/23/17 [History ] Folic Acid 1 mg PO DAILY 07/23/17 [History] Morphine [MS Contin] 60 mg PO TID 07/23/17 [History] Polyethylene Glycol 3350 [MiraLAX] 17 gm PO DAILY 07/23/17 [History] Prednisone [IJD: Prednisone] 5 mg PO ASDIRECTED 07/23/17 [History] Sennosides/Docusate Sodium [Senna S Tablet] 1 tab PO BID PRN 07/23/17 [History] Vancomycin 1.25 gm IV Q24H 07/23/17 [History] atorvaSTATin [Lipitor] 80 mg PO BEDTIME 07/23/17 [History] Past Medical History - Past Health History Medical/Surgical History: Denies Medical/Surgical History HEENT History: Reports: None Cardiovascular History: Reports: None Respiratory History: Reports: None Other Respiratory History: pneumonia Gastrointestinal History: Reports: None Genitourinary History: Reports: None Musculoskeletal History: Reports: Arthritis Psychiatric History: Reports: None Endocrine/Metabolic History: Reports: None Hematologic History: Reports: None Oncologic (Cancer) History: Reports: None Dermatologic History: Reports: None - Infectious Disease History Infectious Disease History: Reports: Chicken Pox Other Infectious Disease History: staph infection - Past Surgical History Cardiovascular Surgical History: Reports: None Other Respiratory Surgeries/Procedures: Chest tube insertion GI Surgical History: Reports: None Male Surgical History: Reports: None Endocrine Surgical History: Reports: None Musculoskeletal Surgical History: Reports: None Dermatological Surgical History: Reports: None Social & Family History - Family History Family Medical History: Noncontributory - Tobacco Use Smoking Status *Q: Former Smoker Years of Tobacco use: 40 Packs/Tins Daily: 2 Used Tobacco, but Quit: Yes Month Tobacco Last Used: June, Second Hand Smoke Exposure: No - Recreational Drug Use Recreational Drug Use: No H&P Review of Systems - Review of Systems: Review Of Systems: ROS reveals no pertinent complaints other than HPI. Exam - Exam Exam: See Below - Vital Signs Vital Signs: Last Vital Signs Temp 36.4 C 07/23/17 12:00 Pulse 101 H 07/23/17 12:00 Resp 28 H 07/23/17 12:00 BP 138/66 07/23/17 12:00 Pulse Ox 95 07/23/17 12:16 Weight: 98.7 kg - Exam General: Alert, Oriented HEENT: Mucosa Moist & [place], Nares Patent Lungs: Normal Respiratory Effort, Decreased Breath Sounds Cardiovascular: Regular Rate, Regular Rhythm GI/Abdominal Exam: Soft, Non-Tender, No Distention Extremities: Non-Tender, Pedal Edema (mild pedal edema) Skin: Warm, Dry, Intact Neurological: No: Focal Deficit - Patient Data Johann Results Last 24 hrs: WBC 4.24, HGB 8.1, Platelet 84, Glucose 118, calcium 8.4, BUN 25, Creatinine 1.93, Potassium 4.2, CO2 24, *Q Meaningful Use (ADM) - VTE *Q VTE Criteria *Q: - Stroke *Q Stroke Criteria *Q: - AMI *Q AMI Criteria *Q: Problem List Initiated/Reviewed/Updated: Yes Orders Last 24hrs: Active Orders 24 hr Category Date Time Status Antiembolic Devices [RC] PER UNIT ROUTINE Care 07/23/17 14:53 Ordered Intake and Output [RC] QSHIFT Care 07/23/17 14:49 Ordered Oxygen Therapy [RC] PRN Care 07/23/17 14:42 Ordered RT Aerosol Therapy [RC] ASDIRECTED Care 07/23/17 14:59 Ordered Up ad Sophia [RC] ASDIRECTED Care 07/23/17 14:42 Ordered VTE/DVT Education [RC] PER UNIT ROUTINE Care 07/23/17 14:42 Ordered Vital Signs [RC] Q4H Care 07/23/17 14:42 Ordered Regular Diet [DIET] Diet 07/23/17 Breakfast Ordered BASIC METABOLIC PANEL,BMP [CHEM] AM Lab 07/24/17 05:11 Ordered BASIC METABOLIC PANEL,BMP [CHEM] AM Lab 07/25/17 05:11 Ordered BASIC METABOLIC PANEL,BMP [CHEM] AM Lab 07/26/17 05:11 Ordered CBC WITH AUTO DIFF [HEME] AM Lab 07/24/17 05:11 Ordered CBC WITH AUTO DIFF [HEME] AM Lab 07/25/17 05:11 Ordered CBC WITH AUTO DIFF [HEME] AM Lab 07/26/17 05:11 Ordered CULTURE SPUTUM + SMEAR [RM] Routine Lab 07/23/17 14:37 Uncollected VANCOMYCIN TROUGH [CHEM] Routine Lab 07/24/17 04:30 Ordered Albuterol/Ipratropium [DuoNeb 3.0-0.5 MG/3 ML] Med 07/23/17 18:00 Ordered 3 ml NEB Q6HRRT Enoxaparin [Lovenox] Med 07/24/17 09:00 Ordered 40 mg SUBCUT DAILY Folic Acid Med 07/24/17 09:00 Ordered 1 mg PO DAILY Levofloxacin/Dextrose 5%-Water [Levaquin in D5W 750 MG/ Med 07/23/17 14:45 Ordered 150 ML] 750 mg Premix Bag 1 bag IV Q24H Morphine [MS Contin] Med 07/23/17 22:00 Ordered 30 mg PO TID Piperacillin/Tazobactam [Piperacil-Tazobact] 3.375 gm Med 07/23/17 14:45 Ordered Sodium Chloride 0.9% [Normal Saline] 50 ml IV Q6H Vancomycin 1,250 mg Med 07/23/17 22:00 Active Sodium Chloride 0.9% [Normal Saline] 250 ml IV Q36H Vancomycin Pharmacy to Dose [Pharmacy to Dose - Med 07/23/17 14:45 Ordered Vancomycin] 1 dose .XX ASDIRECTED atorvaSTATin [Lipitor] Med 07/23/17 21:00 Ordered 80 mg PO BEDTIME oxyCODONE Med 07/23/17 14:59 Ordered 5 mg PO TID PRN predniSONE Med 07/23/17 15:00 Ordered 40 mg PO WITHBREAKFAST Sequential Compression Device [OM.PC] Per Unit Routine Oth 07/23/17 14:49 Ordered Resuscitation Status Routine Resus Stat 07/23/17 14:42 Ordered Medication Orders Albuterol/Ipratropium (Duoneb 3.0-0.5 Mg/3 Ml) 3 ml NEB Q6HRRT SAVANNA Atorvastatin Calcium (Lipitor) 80 mg PO BEDTIME SAVANNA Enoxaparin Sodium (Lovenox) 40 mg SUBCUT DAILY SAVANNA Folic Acid (Folic Acid) 1 mg PO DAILY SAVANNA Sodium Chloride (Normal Saline) 1,000 mls @ 100 mls/hr IV ASDIRECTED [facility] Stop: 07/23/17 22:31 Last Infusion: 07/23/17 13:15 Dose: 100 mls/hr Infusion: 07/23/17 12:57 Dose: 999 mls/hr Admin: 07/23/17 12:57 Dose: 100 mls/hr Levofloxacin/Dextrose 750 mg/ (Premix) 150 mls @ 100 mls/hr IV Q24H SAVANNA Piperacillin Sod/Tazobactam (Sod 3.375 gm/ Sodium Chloride) 50 mls @ 100 mls/ hr IV Q6H SAVANNA Vancomycin HCl 1,250 mg/ (Sodium Chloride) 250 mls @ 250 mls/hr IV Q36H SAVANNA Morphine Sulfate (Ms Contin) 30 mg PO TID SAVANNA Oxycodone HCl (Oxycodone) 5 mg PO TID PRN PRN Reason: Pain Prednisone (Prednisone) 40 mg PO WITHBREAKFAST SAVANNA Vancomycin HCl (Pharmacy To Dose - Vancomycin) 1 dose .XX ASDIRECTED [facility] Assessment/Plan Comment:: 62 yo male with pmh of COPD and MRSA empyema who presents with shortness of breath and chills. Will treat for COPD exacerbation and possible health care associated pneumonia Pneumonia: will continue vancomycina and start zosyn and levaquin, cultures pending. COPD: will increase his prednisone to 40mg daily and duonebs Anemia/thrombocytopenia: will continue to monitor.
[2017-07-23] MEDS: Levofloxacin/Dextrose 5%-Water 750 MG in Premix Bag 1 BAG IV SCH (16:05)
[2017-07-23] MEDS: Morphine 30 MG Tab.ER PO SCH ×2 (16:48→22:05)
[2017-07-23] MEDS: Albuterol/Ipratropium 3.0-0.5 MG/3 ML Neb Soln NEB SCH ×2 (18:03→23:40)
[2017-07-23] MEDS ORDERED: atorvaSTATin 40 MG Tab PO SCH (21:00)
[2017-07-23] MEDS ORDERED: Morphine 30 MG Tab.ER PO SCH ×2 (22:00)
[2017-07-24] MEDS: Piperacillin/Tazobactam 3.375 GM in Sodium Chloride 0.9% 50 ML IV SCH (02:40)
[2017-07-24] MEDS: Morphine 30 MG Tab.ER PO SCH ×3 (05:14→21:03)
[2017-07-24] MEDS: Albuterol/Ipratropium 3.0-0.5 MG/3 ML Neb Soln NEB SCH ×3 (07:01→18:01)
[2017-07-24] MEDS: predniSONE 20 MG Tab PO SCH (08:48)
[2017-07-24] MEDS: Folic Acid 1 MG Tab PO SCH (08:50)
[2017-07-24] MEDS: Cefepime 2 GM in Premix Bag 1 BAG IV SCH ×2 (08:51→20:36)
[2017-07-24] MEDS ORDERED: Enoxaparin 40 MG/0.4 ML Syringe SUBCUT SCH (09:00)
--- NOTE | 2017-07-24 10:07 | CT ---
CT of the abdomen and pelvis without contrast. HISTORY: Ascites TECHNIQUE: Axial CT images were obtained of the abdomen and pelvis without contrast. Coronal and sagi ttal reconstructions obtained. FINDINGS: The heart is mildly enlarged. There are small loculated pleural effusions bilaterally. There is thick ened pleura noted on the right consistent with recent history of empyema. This is not as well noted o n the left. There is moderate atelectasis and scarring also noted within the lung bases. The liver, adrenal glands, and pancreas appear unremarkable for noncontrast examination. The spleen i s moderately enlarged. The gallbladder appears normal. There is no bulky retroperitoneal lymphadenop athy. No abdominal ascites. Mild ectasia of the mid abdominal aorta. There are no calcifications noted within the kidneys or along the courses of the ureters bilaterally. There is a small right renal cyst noted. The large and small bowel are normal in caliber without evidence of obstruction. The appendix appears normal. There is no bulky pelvic lymphadenopathy. No free fluid. No free air. The urinary bladder ap pears normal. Patent on localized stranding noted within the pelvis. The visualized osseous structures appear normal. IMPRESSION: 1. Small bilateral pleural effusions with thickened pleura in the right consistent with history of r ecent empyema. 2. Splenomegaly. 3. No abdominal ascites identified.
[2017-07-24] MEDS: oxyCODONE 5 MG Tab PO PRN (11:13)
[2017-07-24] MEDS ORDERED: Furosemide 40 MG/4 ML VIAL IVPUSH ONE (15:00)
--- NOTE | 2017-07-24 15:00 | PCM.PN ---
<Baluch,Pete - Last Filed: 07/24/17 15:38> - General Info Date of Service: 07/24/17 Admission Dx/Problem (Free Text): Admission Diagnosis/Problem Admission Diagnosis/Problem Dyspnea Subjective Update: I was informed by nursing staff that patient had Hb of 6 on morning blood draw. Patient states he is doing well. He feels a little weak but otherwise is doing well. He is currently eating and states today is the first time he has been able to eat in a while. He denies any chest pain, sob, dizziness, fever, chills , abdominal pain, vomiting or vision change. He has not had a bm for 3 days. He does not think he has been having bloody stool or dark stool. He has never had a colonoscopy. Functional Status: Reports: Pain Controlled, Tolerating Diet, Ambulating - Review of Systems General: Denies: Fever, Malaise, Chills HEENT: Reports: No Symptoms Pulmonary: Reports: No Symptoms Cardiovascular: Reports: Dyspnea on Exertion. Denies: Chest Pain Gastrointestinal: Denies: Diarrhea, Nausea, Vomiting Genitourinary: Reports: Incontinence. Denies: Dysuria, Hematuria Musculoskeletal: Reports: No Symptoms Skin: Denies: Jaundice Neurological: Denies: Confusion, Dizziness, Numbness, Tingling Psychiatric: Reports: No Symptoms - Patient Data Vitals - Most Recent: Last Vital Signs Temp 36.8 C 07/24/17 14:49 Pulse 87 07/24/17 14:49 Resp 12 07/24/17 14:49 BP 120/65 07/24/17 14:49 Pulse Ox 98 07/24/17 14:49 Weight - Most Recent: 98.7 kg I&O - Last 24 Hours: Intake & Output 07/23/17 07/24/17 07/24/17 22:59 06:59 14:59 Intake Total 320 1470 375 Output Total 450 Balance 320 1020 375 Lab Results Last 24 Hours: Laboratory Results - last 24 hr 07/23/17 07/23/17 07/24/17 Range/Units 19:20 21:00 06:08 WBC 3.21 L (4.0-11.0) K/uL RBC 1.81 L (4.50-5.90) M/uL Hgb 6.0 L (13.0-17.0) g/dL Hct 18.1 L (38.0-50.0) % MCV 100.0 H (80.0-98.0) fL MCH 33.1 H (27.0-32.0) pg MCHC 33.1 (31.0-37.0) g/dL RDW Std Deviation 59.4 (28.0-62.0) fl RDW Coeff of Rommel 16 H (11.0-15.0) % Plt Count 79 L (150-400) K/uL MPV 9.80 (7.40-12.00) fL Neut % (Auto) 71.6 (48.0-80.0) % Lymph % (Auto) 21.2 (16.0-40.0) % [place] % (Auto) 6.9 (0.0-15.0) % Eos % (Auto) 0.0 (0.0-7.0) % Baso % (Auto) 0.3 (0.0-1.5) % Neut # (Auto) 2.3 (1.4-5.7) K/uL Lymph # (Auto) 0.7 (0.6-2.4) K/uL [place] # (Auto) 0.2 (0.0-0.8) K/uL Eos # (Auto) 0.0 (0.0-0.7) K/uL Baso # (Auto) 0.0 (0.0-0.1) K/uL Nucleated RBC % 0.0 /100WBC Nucleated RBCs # 0 K/uL Sodium (136-146) mmol/L Potassium (3.5-5.1) mmol/L Chloride (98-110) mmol/L Carbon Dioxide (21-31) mmol/L BUN (6.0-23.0) mg/dL Creatinine (0.6-1.5) mg/dL Est Cr Clr Drug Dosing mL/min Estimated GFR (MDRD) ml/min Glucose (60-110) mg/dL Calcium (8.8-10.8) mg/dL Total Bilirubin (0.1-1.5) mg/dL Direct Bilirubin (0.0-0.5) mg/dL Indirect Bilirubin (0.0-1.0) mg/dL AST (5-40) IU/L ALT (8-54) IU/L Alkaline Phosphatase (40-150) Total Protein (6.0-8.0) g/dL Albumin (3.4-4.8) g/dL Globulin (2.0-3.5) g/dL Albumin/Globulin Ratio (1.3-2.8) Urine Color YELLOW Urine Appearance CLEAR Urine pH 5.5 (5.0-8.0) Ur Specific [place] 1.020 (1.001-1.035) Urine Protein 30 (NEGATIVE) mg/dL Urine Glucose (UA) NEGATIVE (NEGATIVE) mg/dL Urine Ketones NEGATIVE (NEGATIVE) mg/dL Urine Occult Blood LARGE H (NEGATIVE) Urine Nitrite NEGATIVE (NEGATIVE) Urine Bilirubin NEGATIVE (NEGATIVE) Urine Urobilinogen 0.2 (<2.0) EU/dL Ur Leukocyte Esterase NEGATIVE (NEGATIVE) Urine RBC 0-1 (0-2/HPF) Urine WBC 1-2 (0-5/HPF) Ur Epithelial Cells OCCASIONAL (NONE-FEW) Amorphous Sediment LIGHT (NEGATIVE) Urine Bacteria FEW (NEGATIVE) Vancomycin Trough 27.8 H (5-15) ug/mL Random Vancomycin ug/mL 07/24/17 07/24/17 07/24/17 Range/Units 06:08 06:08 06:08 WBC (4.0-11.0) K/uL RBC (4.50-5.90) M/uL Hgb (13.0-17.0) g/dL Hct (38.0-50.0) % MCV (80.0-98.0) fL MCH (27.0-32.0) pg MCHC (31.0-37.0) g/dL RDW Std Deviation (28.0-62.0) fl RDW Coeff of Rommel (11.0-15.0) % Plt Count (150-400) K/uL MPV (7.40-12.00) fL Neut % (Auto) (48.0-80.0) % Lymph % (Auto) (16.0-40.0) % [place] % (Auto) (0.0-15.0) % Eos % (Auto) (0.0-7.0) % Baso % (Auto) (0.0-1.5) % Neut # (Auto) (1.4-5.7) K/uL Lymph # (Auto) (0.6-2.4) K/uL [place] # (Auto) (0.0-0.8) K/uL Eos # (Auto) (0.0-0.7) K/uL Baso # (Auto) (0.0-0.1) K/uL Nucleated RBC % /100WBC Nucleated RBCs # K/uL Sodium 139 (136-146) mmol/L Potassium 4.8 (3.5-5.1) mmol/L Chloride 110 (98-110) mmol/L Carbon Dioxide 20 L (21-31) mmol/L BUN 27 H (6.0-23.0) mg/dL Creatinine 2.1 H (0.6-1.5) mg/dL Est Cr Clr Drug Dosing 38.85 mL/min Estimated GFR (MDRD) 32.2 ml/min Glucose 132 H (60-110) mg/dL Calcium 8.0 L (8.8-10.8) mg/dL Total Bilirubin 1.1 (0.1-1.5) mg/dL Direct Bilirubin 0.5 (0.0-0.5) mg/dL Indirect Bilirubin 0.6 (0.0-1.0) mg/dL AST 20 (5-40) IU/L ALT 27 (8-54) IU/L Alkaline Phosphatase 87 (40-150) Total Protein 5.6 L (6.0-8.0) g/dL Albumin 2.9 L (3.4-4.8) g/dL Globulin 2.7 (2.0-3.5) g/dL Albumin/Globulin Ratio 1.1 L (1.3-2.8) Urine Color Urine Appearance Urine pH (5.0-8.0) Ur Specific [place] (1.001-1.035) Urine Protein (NEGATIVE) mg/dL Urine Glucose (UA) (NEGATIVE) mg/dL Urine Ketones (NEGATIVE) mg/dL Urine Occult Blood (NEGATIVE) Urine Nitrite (NEGATIVE) Urine Bilirubin (NEGATIVE) Urine Urobilinogen (<2.0) EU/dL Ur Leukocyte Esterase (NEGATIVE) Urine RBC (0-2/HPF) Urine WBC (0-5/HPF) Ur Epithelial Cells (NONE-FEW) Amorphous Sediment (NEGATIVE) Urine Bacteria (NEGATIVE) Vancomycin Trough (5-15) ug/mL Random Vancomycin 24.7 ug/mL Johann Results Last 24 Hours: Microbiology 07/23/17 19:20 Gram Stain - Preliminary Sputum - Expectorated Sputum Culture - Preliminary 07/24/17 08:00 Stool Occult Blood (JOHANN) - Final Stool / Feces NEGATIVE OCCULT BLOOD Med Orders - Current: Current Medications Albuterol/Ipratropium (Duoneb 3.0-0.5 Mg/3 Ml) 3 ml NEB Q6HRRT [facility] Last Admin: 07/24/17 12:18 Dose: 3 ml Folic Acid (Folic Acid) 1 mg PO DAILY [facility] Last Admin: 07/24/17 08:50 Dose: 1 mg Furosemide (Lasix) 10 mg IVPUSH ONETIME ONE Stop: 07/24/17 15:01 Last Admin: 07/24/17 14:26 Dose: 10 mg Levofloxacin/Dextrose 750 mg/ (Premix) 150 mls @ 100 mls/hr IV Q24H [facility] Last Admin: 07/23/17 16:05 Dose: 100 mls/hr Vancomycin HCl 1 gm/ Sodium (Chloride) 250 mls @ 250 mls/hr IV Q24H [facility] Cefepime HCl 2 gm/ Premix 50 mls @ 100 mls/hr IV Q12H [facility] Last Admin: 07/24/17 08:51 Dose: 100 mls/hr Morphine Sulfate (Ms Contin) 60 mg PO TID [facility] Last Admin: 07/24/17 13:41 Dose: 60 mg Oxycodone HCl (Oxycodone) 5 mg PO TID PRN PRN Reason: Pain Last Admin: 07/24/17 11:13 Dose: 5 mg Prednisone (Prednisone) 40 mg PO WITHBREAKFAST [facility] Last Admin: 07/24/17 08:48 Dose: 40 mg Vancomycin HCl (Pharmacy To Dose - Vancomycin) 1 dose .XX ASDIRECTED [facility] Discontinued Medications Albuterol/Ipratropium (Duoneb 3.0-0.5 Mg/3 Ml) 3 ml NEB ONETIME ONE Stop: 07/23/17 12:18 Last Admin: 07/23/17 13:07 Dose: 3 ml Atorvastatin Calcium (Lipitor) 80 mg PO BEDTIME [facility] Last Admin: 07/23/17 22:06 Dose: Not Given Enoxaparin Sodium (Lovenox) 40 mg SUBCUT DAILY [facility] Sodium Chloride (Normal Saline) 1,000 mls @ 100 mls/hr IV ASDIRECTED [facility] Stop: 07/23/17 22:31 Last Infusion: 07/23/17 13:15 Dose: 100 mls/hr Piperacillin Sod/Tazobactam (Sod 3.375 gm/ Sodium Chloride) 50 mls @ 100 mls/ hr IV Q6H [facility] Last Admin: 07/24/17 02:40 Dose: 100 mls/hr Vancomycin HCl 1 gm/ Sodium (Chloride) 250 mls @ 250 mls/hr IV Q24H [facility] Vancomycin HCl 1 gm/ Sodium (Chloride) 250 mls @ 250 mls/hr IV Q24H [facility] Vancomycin HCl 1 gm/ Sodium (Chloride) 250 mls @ 250 mls/hr IV Q24H [facility] Last Admin: 07/23/17 15:20 Dose: Not Given Vancomycin HCl 1 gm/ Sodium (Chloride) 250 mls @ 250 mls/hr IV Q24H [facility] Vancomycin HCl 1,250 mg/ (Sodium Chloride) 250 mls @ 250 mls/hr IV Q36H [facility] Last Admin: 07/23/17 22:39 Dose: Not Given Morphine Sulfate (Ms Contin) 30 mg PO TID [facility] Morphine Sulfate (Ms Contin) 60 mg PO TID [facility] Prednisone (Prednisone) 40 mg PO ONETIME ONE Stop: 07/23/17 13:02 Last Admin: 07/23/17 13:35 Dose: 40 mg - Exam General: Alert, Oriented, Cooperative, No Acute Distress HEENT: Pupils Equal, Pupils Reactive, Other (no scleral icterus) Neck: Supple, No JVD Lungs: Other (diminished breath sounds with crackles and rales present in BL lower lobes ) GI/Abdominal Exam: Non-Tender, Distended, Rebound Peripheral Pulses: 1+: Radial (L), Radial (R) Skin: Dry, Intact, Other (no visible jaundice ) Neurological: No New Focal Deficit Psy/Mental Status: Alert, Normal Affect, Normal Mood - Problem List Review Problem List Initiated/Reviewed/Updated: Yes - My Orders Last 24 Hours: My Active Orders 07/24/17 06:00 FERRITIN [REF] Routine 07/24/17 07:31 RED BLOOD CELLS LP [BBK] Stat Transfuse Red Blood Cells [COMM] Stat 07/24/17 07:32 Verify Patient Consent Obtain [RC] ASDIRECTED 07/24/17 07:39 Overnight Pulse Oximetry [RC] Click to Edit Pulse Oximetry Continuous Monitoring [OM.PC] Routine 07/24/17 07:53 IRON/TIBC [CHEM] Routine 07/24/17 07:59 Telemetry Monitoring [Cardiac Monitoring] [RC] Q8H 07/24/17 09:00 Cefepime [Maxipime in D5W 2 GM/50 ML] 2 gm Premix Bag 1 bag IV Q12H 07/24/17 12:18 Communication Order [RC] ROUTINE 07/24/17 12:19 Echo Comp wo Cont [US] Routine 07/24/17 13:10 Communication Order [RC] ROUTINE 07/24/17 15:00 Furosemide [Lasix] 10 mg IVPUSH ONETIME ONE - Plan Plan:: 62 yo male with pmh of COPD, MRSA empyema, CKD & Alcohol Use Disorder admitted for SOB, COPD exacerbation and Pneumonia. Morning labs reveal pancytopenia with Hb of 6.0. Abdominal distension on exam concerning for Ascites. Currently on Vancomycon/Zosyn/Levaquin for Pneumonia and Prednisone 40 mg daily for COPD. Sputum gram stain reveals gm- rods, gm+ cocci singles/pairs. Anemia: Hold Lovenox. collect stool for occult blood. Transfuse 2 units of rbc. Obtain H&H 1 hour post-transfusion. Transfuse 3rd unit if Hb less than 8. Obtain iron studies prior to starting transfusion. Thrombocytopenia: Continue to monitor. Abdominal Distension: add hepatic panel to morning labs. ct abdomen/pelvis wo contrast. Gm- Hugo Pneumonia: hold Zosyn and start Cefepime due to ckd. continue Vancomycin. f/u cultures. COPD: on prednisone 40mg daily and duonebs. <Anatoliy Toledo - Last Filed: 07/25/17 09:38> - General Info Admission Dx/Problem (Free Text): I was present with the resident during history and examination. I discussed the case with the resident and agree with the findings and plan as documented in the residents note. - Patient Data Vitals - Most Recent: Last Vital Signs Temp 36.5 C 07/25/17 08:00 Pulse 101 H 07/25/17 08:00 Resp 22 H 07/25/17 08:00 BP 153/82 H 07/25/17 08:00 Pulse Ox 93 L 07/25/17 08:00 I&O - Last 24 Hours: Intake & Output 1007/25/17 07/25/17 22:59 06:59 14:59 Intake Total 1200 786 Output Total 200 1030 Balance 1000 -244 Lab Results Last 24 Hours: Laboratory Results - last 24 hr 07/24/17 07/24/17 07/24/17 Range/Units 06:00 06:08 19:26 WBC (4.0-11.0) K/uL RBC (4.50-5.90) M/uL Hgb 8.0 L (13.0-17.0) g/dL Hct 24.2 L (38.0-50.0) % MCV (80.0-98.0) fL MCH (27.0-32.0) pg MCHC (31.0-37.0) g/dL RDW Std Deviation (28.0-62.0) fl RDW Coeff of Rommel (11.0-15.0) % Plt Count (150-400) K/uL MPV (7.40-12.00) fL Neut % (Auto) (48.0-80.0) % Lymph % (Auto) (16.0-40.0) % [place] % (Auto) (0.0-15.0) % Eos % (Auto) (0.0-7.0) % Baso % (Auto) (0.0-1.5) % Neut # (Auto) (1.4-5.7) K/uL Lymph # (Auto) (0.6-2.4) K/uL [place] # (Auto) (0.0-0.8) K/uL Eos # (Auto) (0.0-0.7) K/uL Baso # (Auto) (0.0-0.1) K/uL Nucleated RBC % /100WBC Nucleated RBCs # K/uL Sodium (136-146) mmol/L Potassium (3.5-5.1) mmol/L Chloride (98-110) mmol/L Carbon Dioxide (21-31) mmol/L BUN (6.0-23.0) mg/dL Creatinine (0.6-1.5) mg/dL Est Cr Clr Drug Dosing mL/min Estimated GFR (MDRD) ml/min Glucose (60-110) mg/dL Calcium (8.8-10.8) mg/dL Iron 66 (50-170) ug/dL TIBC 168 L (273-456) ug/dL % Saturation 39.29 (20-55) % Ferritin 1449 H (24-336) ng/mL 07/25/17 07/25/17 Range/Units 05:07 05:07 WBC 4.08 (4.0-11.0) K/uL RBC 2.67 L (4.50-5.90) M/uL Hgb 8.3 L (13.0-17.0) g/dL Hct 25.4 L (38.0-50.0) % MCV 95.1 (80.0-98.0) fL MCH 31.1 (27.0-32.0) pg MCHC 32.7 (31.0-37.0) g/dL RDW Std Deviation 69.5 H (28.0-62.0) fl RDW Coeff of Rommel 20 H (11.0-15.0) % Plt Count 110 L (150-400) K/uL MPV 9.50 (7.40-12.00) fL Neut % (Auto) 71.9 (48.0-80.0) % Lymph % (Auto) 21.3 (16.0-40.0) % [place] % (Auto) 6.1 (0.0-15.0) % Eos % (Auto) 0.5 (0.0-7.0) % Baso % (Auto) 0.2 (0.0-1.5) % Neut # (Auto) 2.9 (1.4-5.7) K/uL Lymph # (Auto) 0.9 (0.6-2.4) K/uL [place] # (Auto) 0.3 (0.0-0.8) K/uL Eos # (Auto) 0.0 (0.0-0.7) K/uL Baso # (Auto) 0.0 (0.0-0.1) K/uL Nucleated RBC % 0.0 /100WBC Nucleated RBCs # 0 K/uL Sodium 140 (136-146) mmol/L Potassium 4.4 (3.5-5.1) mmol/L Chloride 110 (98-110) mmol/L Carbon Dioxide 20 L (21-31) mmol/L BUN 29 H (6.0-23.0) mg/dL Creatinine 2.2 H (0.6-1.5) mg/dL Est Cr Clr Drug Dosing 37.08 mL/min Estimated GFR (MDRD) 30.5 ml/min Glucose 101 (60-110) mg/dL Calcium 8.1 L (8.8-10.8) mg/dL Iron (50-170) ug/dL TIBC (273-456) ug/dL % Saturation (20-55) % Ferritin (24-336) ng/mL Johann Results Last 24 Hours: Microbiology 07/23/17 19:20 Urine Culture - Final Urine, Voided MIXED [place] <1000 CFU/ML 07/23/17 19:20 Gram Stain - Preliminary Sputum - Expectorated Sputum Culture - Final (Mrsa) Staphylococcus Aureus Normal Respiratory [place] 07/24/17 08:00 Stool Occult Blood (JOHANN) - Final Stool / Feces NEGATIVE OCCULT BLOOD Med Orders - Current: Current Medications Albuterol/Ipratropium (Duoneb 3.0-0.5 Mg/3 Ml) 3 ml NEB Q6HRRT [facility] Last Admin: 07/25/17 05:50 Dose: 3 ml Folic Acid (Folic Acid) 1 mg PO DAILY [facility] Last Admin: 07/25/17 08:41 Dose: 1 mg Linezolid 600 mg/ Premix 300 mls @ 300 mls/hr IV Q12H [facility] Lorazepam (Ativan) 0.5 mg PO Q6H PRN PRN Reason: Anxiety Last Admin: 07/25/17 03:43 Dose: 0.5 mg Morphine Sulfate (Ms Contin) 60 mg PO TID [facility] Last Admin: 07/25/17 05:14 Dose: 60 mg Oxycodone HCl (Oxycodone) 5 mg PO TID PRN PRN Reason: Pain Last Admin: 07/24/17 11:13 Dose: 5 mg Prednisone (Prednisone) 40 mg PO WITHBREAKFAST [facility] Last Admin: 07/25/17 08:41 Dose: 40 mg Discontinued Medications Albuterol/Ipratropium (Duoneb 3.0-0.5 Mg/3 Ml) 3 ml NEB ONETIME ONE Stop: 07/23/17 12:18 Last Admin: 07/23/17 13:07 Dose: 3 ml Atorvastatin Calcium (Lipitor) 80 mg PO BEDTIME [facility] Last Admin: 07/23/17 22:06 Dose: Not Given Enoxaparin Sodium (Lovenox) 40 mg SUBCUT DAILY [facility] Furosemide (Lasix) 10 mg IVPUSH ONETIME ONE Stop: 07/24/17 15:01 Last Admin: 07/24/17 14:26 Dose: 10 mg Furosemide (Lasix) 20 mg IVPUSH ONETIME ONE Stop: 07/24/17 20:01 Last Admin: 07/24/17 20:36 Dose: 20 mg Furosemide (Lasix) 20 mg IVPUSH ONETIME ONE Stop: 07/25/17 02:27 Last Admin: 07/25/17 02:40 Dose: 20 mg Sodium Chloride (Normal Saline) 1,000 mls @ 100 mls/hr IV ASDIRECTED [facility] Stop: 07/23/17 22:31 Last Infusion: 07/23/17 13:15 Dose: 100 mls/hr Levofloxacin/Dextrose 750 mg/ (Premix) 150 mls @ 100 mls/hr IV Q24H [facility] Last Admin: 07/24/17 18:27 Dose: 100 mls/hr Piperacillin Sod/Tazobactam (Sod 3.375 gm/ Sodium Chloride) 50 mls @ 100 mls/ hr IV Q6H [facility] Last Admin: 07/24/17 02:40 Dose: 100 mls/hr Vancomycin HCl 1 gm/ Sodium (Chloride) 250 mls @ 250 mls/hr IV Q24H [facility] Vancomycin HCl 1 gm/ Sodium (Chloride) 250 mls @ 250 mls/hr IV Q24H [facility] Vancomycin HCl 1 gm/ Sodium (Chloride) 250 mls @ 250 mls/hr IV Q24H [facility] Last Admin: 07/23/17 15:20 Dose: Not Given Vancomycin HCl 1 gm/ Sodium (Chloride) 250 mls @ 250 mls/hr IV Q24H [facility] Vancomycin HCl 1,250 mg/ (Sodium Chloride) 250 mls @ 250 mls/hr IV Q36H [facility] Last Admin: 07/23/17 22:39 Dose: Not Given Vancomycin HCl 1 gm/ Sodium (Chloride) 250 mls @ 250 mls/hr IV Q24H [facility] Last Admin: 07/24/17 21:27 Dose: 250 mls/hr Cefepime HCl 2 gm/ Premix 50 mls @ 100 mls/hr IV Q12H [facility] Last Admin: 07/25/17 08:41 Dose: 100 mls/hr Morphine Sulfate (Ms Contin) 30 mg PO TID [facility] Morphine Sulfate (Ms Contin) 60 mg PO TID [facility] Prednisone (Prednisone) 40 mg PO ONETIME ONE Stop: 07/23/17 13:02 Last Admin: 07/23/17 13:35 Dose: 40 mg Vancomycin HCl (Pharmacy To Dose - Vancomycin) 1 dose .XX ASDIRECTED [facility] - My Orders Last 24 Hours: My Active Orders 07/24/17 20:29 Communication Order [RC] ROUTINE LORazepam [Ativan] 0.5 mg PO Q6H PRN
[2017-07-24] MEDS: Levofloxacin/Dextrose 5%-Water 750 MG in Premix Bag 1 BAG IV SCH (18:27)
[2017-07-24] MEDS ORDERED: Furosemide 20 MG/2 ML VIAL IVPUSH ONE (20:00)
[2017-07-24] MEDS: LORazepam 0.5 MG Tab PO PRN (21:03)
[2017-07-25] MEDS ORDERED: Furosemide 20 MG/2 ML VIAL IVPUSH ONE (02:26)
[2017-07-25] MEDS: LORazepam 0.5 MG Tab PO PRN ×2 (03:43→10:57)
[2017-07-25] MEDS: Morphine 30 MG Tab.ER PO SCH ×3 (05:14→21:05)
[2017-07-25] MEDS: Albuterol/Ipratropium 3.0-0.5 MG/3 ML Neb Soln NEB SCH ×5 (05:50→23:36)
[2017-07-25] MEDS: predniSONE 20 MG Tab PO SCH (08:41)
[2017-07-25] MEDS: Cefepime 2 GM in Premix Bag 1 BAG IV SCH (08:41)
[2017-07-25] MEDS: Folic Acid 1 MG Tab PO SCH (08:41)
--- NOTE | 2017-07-25 10:38 | CR ---
EXAMINATION: Two-view chest (PA and Lateral views). HISTORY: CHF. FINDINGS: The trachea is midline. The cardiomediastinal silhouette is stable. Mildly increasing interstitial pr ominence most prominent within the perihilar regions. There is a right-sided dialysis catheter again noted. Right-sided PICC line with tip in good position. Right pleural thickening and a trace pleural effusion is again noted. Osseous structures appear unremarkable. IMPRESSION: Increasing interstitial prominence most prominent within the left hilar region. This could represent CHF.
[2017-07-25] MEDS: Linezolid 600 MG in Premix Bag 1 BAG IV SCH ×2 (10:59→21:06)
--- NOTE | 2017-07-25 12:51 | PCM.PN ---
<Baluch,Pete - Last Filed: 07/25/17 18:45> - General Info Date of Service: 07/25/17 Admission Dx/Problem (Free Text): I was present with the resident during history and examination. I discussed the case with the resident and agree with the findings and plan as documented in the residents note. Subjective Update: Patient felt better yesterday after receiving blood transfusion during the day. Had intermittent weakness overnight. Has had some difficulty breathing during the day. Developed some swelling of the feet. Functional Status: Reports: Pain Controlled, Tolerating Diet, Ambulating, Urinating - Review of Systems General: Reports: Weakness, Fatigue. Denies: Fever, Malaise, Chills, Night Sweats HEENT: Reports: No Symptoms Pulmonary: Reports: Shortness of Breath Cardiovascular: Reports: Edema (mild foot swelling) Gastrointestinal: Reports: No Symptoms Genitourinary: Reports: No Symptoms Musculoskeletal: Reports: No Symptoms Skin: Reports: No Symptoms Neurological: Reports: No Symptoms Psychiatric: Reports: Anxiety - Patient Data Vitals - Most Recent: Last Vital Signs Temp 36.6 C 07/25/17 12:00 Pulse 82 07/25/17 12:00 Resp 20 07/25/17 12:00 BP 137/72 07/25/17 12:00 Pulse Ox 96 07/25/17 12:00 Weight - Most Recent: 98.7 kg I&O - Last 24 Hours: Intake & Output 07/24/17 07/25/17 07/25/17 22:59 06:59 14:59 Intake Total 1200 786 50 Output Total 200 1030 Balance 1000 -244 50 Lab Results Last 24 Hours: Laboratory Results - last 24 hr 07/24/17 07/24/17 07/24/17 Range/Units 06:00 06:08 19:26 WBC (4.0-11.0) K/uL RBC (4.50-5.90) M/uL Hgb 8.0 L (13.0-17.0) g/dL Hct 24.2 L (38.0-50.0) % MCV (80.0-98.0) fL MCH (27.0-32.0) pg MCHC (31.0-37.0) g/dL RDW Std Deviation (28.0-62.0) fl RDW Coeff of Rommel (11.0-15.0) % Plt Count (150-400) K/uL MPV (7.40-12.00) fL Neut % (Auto) (48.0-80.0) % Lymph % (Auto) (16.0-40.0) % Caldwell % (Auto) (0.0-15.0) % Eos % (Auto) (0.0-7.0) % Baso % (Auto) (0.0-1.5) % Neut # (Auto) (1.4-5.7) K/uL Lymph # (Auto) (0.6-2.4) K/uL Caldwell # (Auto) (0.0-0.8) K/uL Eos # (Auto) (0.0-0.7) K/uL Baso # (Auto) (0.0-0.1) K/uL Nucleated RBC % /100WBC Nucleated RBCs # K/uL Sodium (136-146) mmol/L Potassium (3.5-5.1) mmol/L Chloride (98-110) mmol/L Carbon Dioxide (21-31) mmol/L BUN (6.0-23.0) mg/dL Creatinine (0.6-1.5) mg/dL Est Cr Clr Drug Dosing mL/min Estimated GFR (MDRD) ml/min Glucose (60-110) mg/dL Calcium (8.8-10.8) mg/dL Iron 66 (50-170) ug/dL TIBC 168 L (273-456) ug/dL % Saturation 39.29 (20-55) % Ferritin 1449 H (24-336) ng/mL 07/25/17 07/25/17 Range/Units 05:07 05:07 WBC 4.08 (4.0-11.0) K/uL RBC 2.67 L (4.50-5.90) M/uL Hgb 8.3 L (13.0-17.0) g/dL Hct 25.4 L (38.0-50.0) % MCV 95.1 (80.0-98.0) fL MCH 31.1 (27.0-32.0) pg MCHC 32.7 (31.0-37.0) g/dL RDW Std Deviation 69.5 H (28.0-62.0) fl RDW Coeff of Rommel 20 H (11.0-15.0) % Plt Count 110 L (150-400) K/uL MPV 9.50 (7.40-12.00) fL Neut % (Auto) 71.9 (48.0-80.0) % Lymph % (Auto) 21.3 (16.0-40.0) % Caldwell % (Auto) 6.1 (0.0-15.0) % Eos % (Auto) 0.5 (0.0-7.0) % Baso % (Auto) 0.2 (0.0-1.5) % Neut # (Auto) 2.9 (1.4-5.7) K/uL Lymph # (Auto) 0.9 (0.6-2.4) K/uL Caldwell # (Auto) 0.3 (0.0-0.8) K/uL Eos # (Auto) 0.0 (0.0-0.7) K/uL Baso # (Auto) 0.0 (0.0-0.1) K/uL Nucleated RBC % 0.0 /100WBC Nucleated RBCs # 0 K/uL Sodium 140 (136-146) mmol/L Potassium 4.4 (3.5-5.1) mmol/L Chloride 110 (98-110) mmol/L Carbon Dioxide 20 L (21-31) mmol/L BUN 29 H (6.0-23.0) mg/dL Creatinine 2.2 H (0.6-1.5) mg/dL Est Cr Clr Drug Dosing 37.08 mL/min Estimated GFR (MDRD) 30.5 ml/min Glucose 101 (60-110) mg/dL Calcium 8.1 L (8.8-10.8) mg/dL Iron (50-170) ug/dL TIBC (273-456) ug/dL % Saturation (20-55) % Ferritin (24-336) ng/mL Johann Results Last 24 Hours: Microbiology 07/23/17 19:20 Urine Culture - Final Urine, Voided MIXED FRANKLYN <1000 CFU/ML 07/23/17 19:20 Gram Stain - Preliminary Sputum - Expectorated Sputum Culture - Final (Mrsa) Staphylococcus Aureus Normal Respiratory Franklyn 07/24/17 08:00 Stool Occult Blood (JOHANN) - Final Stool / Feces NEGATIVE OCCULT BLOOD Med Orders - Current: Current Medications Albuterol/Ipratropium (Duoneb 3.0-0.5 Mg/3 Ml) 3 ml NEB Q6HRRT [facility] Last Admin: 07/25/17 11:05 Dose: 3 ml Folic Acid (Folic Acid) 1 mg PO DAILY [facility] Last Admin: 07/25/17 08:41 Dose: 1 mg Linezolid 600 mg/ Premix 300 mls @ 300 mls/hr IV Q12H [facility] Last Admin: 07/25/17 10:59 Dose: 300 mls/hr Lorazepam (Ativan) 0.5 mg PO Q6H PRN PRN Reason: Anxiety Last Admin: 07/25/17 10:57 Dose: 0.5 mg Morphine Sulfate (Ms Contin) 60 mg PO TID [facility] Last Admin: 07/25/17 05:14 Dose: 60 mg Oxycodone HCl (Oxycodone) 5 mg PO TID PRN PRN Reason: Pain Last Admin: 07/24/17 11:13 Dose: 5 mg Prednisone (Prednisone) 40 mg PO WITHBREAKFAST [facility] Last Admin: 07/25/17 08:41 Dose: 40 mg Discontinued Medications Albuterol/Ipratropium (Duoneb 3.0-0.5 Mg/3 Ml) 3 ml NEB ONETIME ONE Stop: 07/23/17 12:18 Last Admin: 07/23/17 13:07 Dose: 3 ml Atorvastatin Calcium (Lipitor) 80 mg PO BEDTIME [facility] Last Admin: 07/23/17 22:06 Dose: Not Given Enoxaparin Sodium (Lovenox) 40 mg SUBCUT DAILY [facility] Furosemide (Lasix) 10 mg IVPUSH ONETIME ONE Stop: 07/24/17 15:01 Last Admin: 07/24/17 14:26 Dose: 10 mg Furosemide (Lasix) 20 mg IVPUSH ONETIME ONE Stop: 07/24/17 20:01 Last Admin: 07/24/17 20:36 Dose: 20 mg Furosemide (Lasix) 20 mg IVPUSH ONETIME ONE Stop: 07/25/17 02:27 Last Admin: 07/25/17 02:40 Dose: 20 mg Sodium Chloride (Normal Saline) 1,000 mls @ 100 mls/hr IV ASDIRECTED [facility] Stop: 07/23/17 22:31 Last Infusion: 07/23/17 13:15 Dose: 100 mls/hr Levofloxacin/Dextrose 750 mg/ (Premix) 150 mls @ 100 mls/hr IV Q24H [facility] Last Admin: 07/24/17 18:27 Dose: 100 mls/hr Piperacillin Sod/Tazobactam (Sod 3.375 gm/ Sodium Chloride) 50 mls @ 100 mls/ hr IV Q6H [facility] Last Admin: 07/24/17 02:40 Dose: 100 mls/hr Vancomycin HCl 1 gm/ Sodium (Chloride) 250 mls @ 250 mls/hr IV Q24H [facility] Vancomycin HCl 1 gm/ Sodium (Chloride) 250 mls @ 250 mls/hr IV Q24H [facility] Vancomycin HCl 1 gm/ Sodium (Chloride) 250 mls @ 250 mls/hr IV Q24H [facility] Last Admin: 07/23/17 15:20 Dose: Not Given Vancomycin HCl 1 gm/ Sodium (Chloride) 250 mls @ 250 mls/hr IV Q24H [facility] Vancomycin HCl 1,250 mg/ (Sodium Chloride) 250 mls @ 250 mls/hr IV Q36H [facility] Last Admin: 07/23/17 22:39 Dose: Not Given Vancomycin HCl 1 gm/ Sodium (Chloride) 250 mls @ 250 mls/hr IV Q24H [facility] Last Admin: 07/24/17 21:27 Dose: 250 mls/hr Cefepime HCl 2 gm/ Premix 50 mls @ 100 mls/hr IV Q12H [facility] Last Admin: 07/25/17 08:41 Dose: 100 mls/hr Morphine Sulfate (Ms Contin) 30 mg PO TID [facility] Morphine Sulfate (Ms Contin) 60 mg PO TID [facility] Prednisone (Prednisone) 40 mg PO ONETIME ONE Stop: 07/23/17 13:02 Last Admin: 07/23/17 13:35 Dose: 40 mg Vancomycin HCl (Pharmacy To Dose - Vancomycin) 1 dose .XX ASDIRECTED [facility] - Exam Quality Assessment: Supplemental Oxygen General: Alert, Oriented, Cooperative HEENT: No: Mucous Membr. Moist/[place] Neck: Supple, No JVD Lungs: Other (symmetrically diminished breath sounds with ronchi at midlung and bases ) Cardiovascular: Regular Rate, Regular Rhythm Extremities: Other (mild bl pedal edema ) Skin: Intact Neurological: No New Focal Deficit Psy/Mental Status: Anxious - Problem List Review Problem List Initiated/Reviewed/Updated: Yes - My Orders Last 24 Hours: My Active Orders 07/24/17 12:18 Communication Order [RC] ROUTINE 07/24/17 12:19 Echo Comp wo Cont [US] Routine 07/24/17 13:10 Communication Order [RC] ROUTINE 07/24/17 15:10 Communication Order [RC] ROUTINE - Plan Plan:: 62 yo male with pmh of COPD, MRSA empyema, CKD & Alcohol Use Disorder admitted for SOB, COPD exacerbation and Pneumonia. Anemia: iron studies consistent with ACD. Hb improved after 3 units RBC, currently 8.3 Pleural Effusion: expanding on CXR. Echo shows EF 60%. possible underlying HFpEF. administer Lasix 60 mg IV single dose. Insert Sarmiento. Strict I&O Hypoxia: likely secondary to pleural effusion. O2 via LFNC CKD: Cr currently 2.2. monitor. MRSA Pneumonia: DC Cefepime & Vancomycin. Start Linezolid. f/u blood cultures. COPD: on prednisone 40mg daily and duonebs. Thrombocytopenia: improving. currently 110. Continue to monitor. Abdominal Distension: ct abdomen/pelvis wo contrast shows no ascites. Hepatic panel wnl. <Anatoliy Toledo - Last Filed: 07/26/17 11:18> - General Info Admission Dx/Problem (Free Text): I was present with the resident during history and examination. I discussed the case with the resident and agree with the findings and plan as documented in the residents note. No issues. - Patient Data Vitals - Most Recent: Last Vital Signs Temp 36.8 C 07/26/17 08:00 Pulse 114 H 07/26/17 08:00 Resp 22 H 07/26/17 08:00 BP 158/72 H 07/26/17 08:00 Pulse Ox 91 L 07/26/17 08:00 I&O - Last 24 Hours: Intake & Output 07/25/17 07/26/17 07/26/17 22:59 06:59 14:59 Intake Total 990 1650 1050 Output Total 400 1225 250 Balance 590 425 800 Lab Results Last 24 Hours: Laboratory Results - last 24 hr 07/26/17 07/26/17 Range/Units 05:35 05:35 WBC 3.36 L (4.0-11.0) K/uL RBC 2.53 L (4.50-5.90) M/uL Hgb 7.9 L (13.0-17.0) g/dL Hct 24.0 L (38.0-50.0) % MCV 94.9 (80.0-98.0) fL MCH 31.2 (27.0-32.0) pg MCHC 32.9 (31.0-37.0) g/dL RDW Std Deviation 67.7 H (28.0-62.0) fl RDW Coeff of Rommel 19 H (11.0-15.0) % Plt Count 108 L (150-400) K/uL MPV 9.50 (7.40-12.00) fL Neut % (Auto) 67.5 (48.0-80.0) % Lymph % (Auto) 25.3 (16.0-40.0) % Caldwell % (Auto) 6.3 (0.0-15.0) % Eos % (Auto) 0.6 (0.0-7.0) % Baso % (Auto) 0.3 (0.0-1.5) % Neut # (Auto) 2.3 (1.4-5.7) K/uL Lymph # (Auto) 0.9 (0.6-2.4) K/uL Caldwell # (Auto) 0.2 (0.0-0.8) K/uL Eos # (Auto) 0.0 (0.0-0.7) K/uL Baso # (Auto) 0.0 (0.0-0.1) K/uL Nucleated RBC % 0.0 /100WBC Nucleated RBCs # 0 K/uL Sodium 139 (136-146) mmol/L Potassium 4.3 (3.5-5.1) mmol/L Chloride 107 (98-110) mmol/L Carbon Dioxide 22 (21-31) mmol/L BUN 27 H (6.0-23.0) mg/dL Creatinine 2.3 H (0.6-1.5) mg/dL Est Cr Clr Drug Dosing 35.47 mL/min Estimated GFR (MDRD) 29.0 ml/min Glucose 99 (60-110) mg/dL Calcium 8.2 L (8.8-10.8) mg/dL Johann Results Last 24 Hours: Microbiology 07/23/17 19:20 Urine Culture - Final Urine, Voided MIXED FRANKLYN <1000 CFU/ML 07/23/17 19:20 Gram Stain - Preliminary Sputum - Expectorated Sputum Culture - Final (Mrsa) Staphylococcus Aureus Normal Respiratory Franklyn Med Orders - Current: Current Medications Albuterol/Ipratropium (Duoneb 3.0-0.5 Mg/3 Ml) 3 ml NEB Q6HRRT [facility] Last Admin: 07/26/17 05:47 Dose: 3 ml Folic Acid (Folic Acid) 1 mg PO DAILY [facility] Last Admin: 07/26/17 08:03 Dose: 1 mg Hydromorphone HCl (Dilaudid) 2 mg IVPUSH Q4H PRN PRN Reason: Pain (moderate 4-6) Last Admin: 07/26/17 02:52 Dose: 2 mg Linezolid 600 mg/ Premix 300 mls @ 300 mls/hr IV Q12H [facility] Last Admin: 07/26/17 08:03 Dose: 300 mls/hr Lorazepam (Ativan) 0.5 mg PO Q6H PRN PRN Reason: Anxiety Last Admin: 07/26/17 00:50 Dose: 0.5 mg Morphine Sulfate (Ms Contin) 60 mg PO TID [facility] Last Admin: 07/26/17 05:46 Dose: 60 mg Oxycodone HCl (Oxycodone) 5 mg PO TID PRN PRN Reason: Pain Last Admin: 07/24/17 11:13 Dose: 5 mg Prednisone (Prednisone) 40 mg PO WITHBREAKFAST [facility] Last Admin: 07/26/17 08:03 Dose: 40 mg Discontinued Medications Albuterol/Ipratropium (Duoneb 3.0-0.5 Mg/3 Ml) 3 ml NEB ONETIME ONE Stop: 07/23/17 12:18 Last Admin: 07/23/17 13:07 Dose: 3 ml Atorvastatin Calcium (Lipitor) 80 mg PO BEDTIME [facility] Last Admin: 07/23/17 22:06 Dose: Not Given Enoxaparin Sodium (Lovenox) 40 mg SUBCUT DAILY [facility] Furosemide (Lasix) 10 mg IVPUSH ONETIME ONE Stop: 07/24/17 15:01 Last Admin: 07/24/17 14:26 Dose: 10 mg Furosemide (Lasix) 20 mg IVPUSH ONETIME ONE Stop: 07/24/17 20:01 Last Admin: 07/24/17 20:36 Dose: 20 mg Furosemide (Lasix) 20 mg IVPUSH ONETIME ONE Stop: 07/25/17 02:27 Last Admin: 07/25/17 02:40 Dose: 20 mg Furosemide (Lasix) 60 mg IVPUSH NOW ONE Stop: 07/25/17 15:43 Last Admin: 07/25/17 16:43 Dose: 60 mg Furosemide (Lasix) Confirm Administered Dose 80 mg .ROUTE .STK-MED ONE Stop: 07/25/17 16:41 Last Admin: 07/25/17 17:35 Dose: Not Given Hydromorphone HCl (Dilaudid) 1 mg IVPUSH Q6H PRN PRN Reason: Pain (moderate 4-6) Last Admin: 07/25/17 16:46 Dose: 1 mg Hydromorphone HCl (Dilaudid) 2 mg IVPUSH ONETIME ONE Stop: 07/25/17 18:45 Last Admin: 07/25/17 18:54 Dose: 2 mg Sodium Chloride (Normal Saline) 1,000 mls @ 100 mls/hr IV ASDIRECTED [facility] Stop: 07/23/17 22:31 Last Infusion: 07/23/17 13:15 Dose: 100 mls/hr Levofloxacin/Dextrose 750 mg/ (Premix) 150 mls @ 100 mls/hr IV Q24H [facility] Last Admin: 07/24/17 18:27 Dose: 100 mls/hr Piperacillin Sod/Tazobactam (Sod 3.375 gm/ Sodium Chloride) 50 mls @ 100 mls/ hr IV Q6H [facility] Last Admin: 07/24/17 02:40 Dose: 100 mls/hr Vancomycin HCl 1 gm/ Sodium (Chloride) 250 mls @ 250 mls/hr IV Q24H [facility] Vancomycin HCl 1 gm/ Sodium (Chloride) 250 mls @ 250 mls/hr IV Q24H [facility] Vancomycin HCl 1 gm/ Sodium (Chloride) 250 mls @ 250 mls/hr IV Q24H [facility] Last Admin: 07/23/17 15:20 Dose: Not Given Vancomycin HCl 1 gm/ Sodium (Chloride) 250 mls @ 250 mls/hr IV Q24H [facility] Vancomycin HCl 1,250 mg/ (Sodium Chloride) 250 mls @ 250 mls/hr IV Q36H [facility] Last Admin: 07/23/17 22:39 Dose: Not Given Vancomycin HCl 1 gm/ Sodium (Chloride) 250 mls @ 250 mls/hr IV Q24H [facility] Last Admin: 07/24/17 21:27 Dose: 250 mls/hr Cefepime HCl 2 gm/ Premix 50 mls @ 100 mls/hr IV Q12H [facility] Last Admin: 07/25/17 08:41 Dose: 100 mls/hr Lorazepam (Ativan) 2 mg IVPUSH ONETIME ONE Stop: 07/25/17 18:46 Last Admin: 07/25/17 18:54 Dose: 2 mg Morphine Sulfate (Ms Contin) 30 mg PO TID [facility] Morphine Sulfate (Ms Contin) 60 mg PO TID [facility] Prednisone (Prednisone) 40 mg PO ONETIME ONE Stop: 07/23/17 13:02 Last Admin: 07/23/17 13:35 Dose: 40 mg Vancomycin HCl (Pharmacy To Dose - Vancomycin) 1 dose .XX ASDIRECTED [facility]
[2017-07-25] MEDS ORDERED: Furosemide 40 MG/4 ML VIAL IVPUSH ONE (15:42)
[2017-07-25] MEDS ORDERED: HYDROmorphone 1 MG/ML Syringe IVPUSH PRN (16:25)
[2017-07-25] MEDS ORDERED: Furosemide 40 MG/4 ML VIAL ONE (16:40)
[2017-07-25] MEDS: HYDROmorphone 2 MG/ML Syringe IVPUSH PRN (17:47)
[2017-07-25] MEDS ORDERED: HYDROmorphone 2 MG/ML Syringe IVPUSH ONE (18:44)
[2017-07-25] MEDS ORDERED: LORazepam 2 MG/ML MDV IVPUSH ONE (18:45)
[2017-07-26] MEDS: LORazepam 0.5 MG Tab PO PRN (00:50)
[2017-07-26] MEDS: HYDROmorphone 2 MG/ML Syringe IVPUSH PRN ×3 (02:52→14:27)
[2017-07-26] MEDS: Morphine 30 MG Tab.ER PO SCH ×3 (05:46→22:15)
[2017-07-26] MEDS: Albuterol/Ipratropium 3.0-0.5 MG/3 ML Neb Soln NEB SCH ×3 (05:47→17:06)
[2017-07-26] MEDS: predniSONE 20 MG Tab PO SCH (08:03)
[2017-07-26] MEDS: Linezolid 600 MG in Premix Bag 1 BAG IV SCH ×2 (08:03→20:27)
[2017-07-26] MEDS: Folic Acid 1 MG Tab PO SCH (08:03)
--- NOTE | 2017-07-26 11:09 | PCM.PN ---
<Baluch,Pete - Last Filed: 07/26/17 10:54> - General Info Date of Service: 07/26/17 Subjective Update: Patients breathing is improving. Increased energy and decreased anxiety. Overnight he experienced bleeding secondary to trauma from fisher insertion. His bleeding resolved with pressure. He had some blood in his urine which has now resolved and pee is yellow once again. Functional Status: Reports: Pain Controlled - Review of Systems General: Reports: Fatigue HEENT: Reports: No Symptoms Pulmonary: Reports: Shortness of Breath Cardiovascular: Reports: No Symptoms Gastrointestinal: Reports: No Symptoms Genitourinary: Reports: No Symptoms Musculoskeletal: Reports: No Symptoms Skin: Reports: No Symptoms Neurological: Reports: No Symptoms Psychiatric: Reports: No Symptoms - Patient Data Vitals - Most Recent: Last Vital Signs Temp 36.8 C 07/26/17 08:00 Pulse 114 H 07/26/17 08:00 Resp 22 H 07/26/17 08:00 BP 158/72 H 07/26/17 08:00 Pulse Ox 91 L 07/26/17 08:00 Weight - Most Recent: 98.7 kg I&O - Last 24 Hours: Intake & Output 07/25/17 07/26/17 07/26/17 22:59 06:59 14:59 Intake Total 990 1650 1050 Output Total 400 1225 250 Balance 590 425 800 Lab Results Last 24 Hours: Laboratory Results - last 24 hr 07/26/17 07/26/17 Range/Units 05:35 05:35 WBC 3.36 L (4.0-11.0) K/uL RBC 2.53 L (4.50-5.90) M/uL Hgb 7.9 L (13.0-17.0) g/dL Hct 24.0 L (38.0-50.0) % MCV 94.9 (80.0-98.0) fL MCH 31.2 (27.0-32.0) pg MCHC 32.9 (31.0-37.0) g/dL RDW Std Deviation 67.7 H (28.0-62.0) fl RDW Coeff of Rommel 19 H (11.0-15.0) % Plt Count 108 L (150-400) K/uL MPV 9.50 (7.40-12.00) fL Neut % (Auto) 67.5 (48.0-80.0) % Lymph % (Auto) 25.3 (16.0-40.0) % Seward % (Auto) 6.3 (0.0-15.0) % Eos % (Auto) 0.6 (0.0-7.0) % Baso % (Auto) 0.3 (0.0-1.5) % Neut # (Auto) 2.3 (1.4-5.7) K/uL Lymph # (Auto) 0.9 (0.6-2.4) K/uL Seward # (Auto) 0.2 (0.0-0.8) K/uL Eos # (Auto) 0.0 (0.0-0.7) K/uL Baso # (Auto) 0.0 (0.0-0.1) K/uL Nucleated RBC % 0.0 /100WBC Nucleated RBCs # 0 K/uL Sodium 139 (136-146) mmol/L Potassium 4.3 (3.5-5.1) mmol/L Chloride 107 (98-110) mmol/L Carbon Dioxide 22 (21-31) mmol/L BUN 27 H (6.0-23.0) mg/dL Creatinine 2.3 H (0.6-1.5) mg/dL Est Cr Clr Drug Dosing 35.47 mL/min Estimated GFR (MDRD) 29.0 ml/min Glucose 99 (60-110) mg/dL Calcium 8.2 L (8.8-10.8) mg/dL Johann Results Last 24 Hours: Microbiology 07/23/17 19:20 Urine Culture - Final Urine, Voided MIXED FRANKLYN <1000 CFU/ML 07/23/17 19:20 Gram Stain - Preliminary Sputum - Expectorated Sputum Culture - Final (Mrsa) Staphylococcus Aureus Normal Respiratory Franklyn Med Orders - Current: Current Medications Albuterol/Ipratropium (Duoneb 3.0-0.5 Mg/3 Ml) 3 ml NEB Q6HRRT [facility] Last Admin: 07/26/17 05:47 Dose: 3 ml Folic Acid (Folic Acid) 1 mg PO DAILY [facility] Last Admin: 07/26/17 08:03 Dose: 1 mg Hydromorphone HCl (Dilaudid) 2 mg IVPUSH Q4H PRN PRN Reason: Pain (moderate 4-6) Last Admin: 07/26/17 02:52 Dose: 2 mg Linezolid 600 mg/ Premix 300 mls @ 300 mls/hr IV Q12H [facility] Last Admin: 07/26/17 08:03 Dose: 300 mls/hr Lorazepam (Ativan) 0.5 mg PO Q6H PRN PRN Reason: Anxiety Last Admin: 07/26/17 00:50 Dose: 0.5 mg Morphine Sulfate (Ms Contin) 60 mg PO TID [facility] Last Admin: 07/26/17 05:46 Dose: 60 mg Oxycodone HCl (Oxycodone) 5 mg PO TID PRN PRN Reason: Pain Last Admin: 07/24/17 11:13 Dose: 5 mg Prednisone (Prednisone) 40 mg PO WITHBREAKFAST [facility] Last Admin: 07/26/17 08:03 Dose: 40 mg Discontinued Medications Albuterol/Ipratropium (Duoneb 3.0-0.5 Mg/3 Ml) 3 ml NEB ONETIME ONE Stop: 07/23/17 12:18 Last Admin: 07/23/17 13:07 Dose: 3 ml Atorvastatin Calcium (Lipitor) 80 mg PO BEDTIME [facility] Last Admin: 07/23/17 22:06 Dose: Not Given Enoxaparin Sodium (Lovenox) 40 mg SUBCUT DAILY [facility] Furosemide (Lasix) 10 mg IVPUSH ONETIME ONE Stop: 07/24/17 15:01 Last Admin: 07/24/17 14:26 Dose: 10 mg Furosemide (Lasix) 20 mg IVPUSH ONETIME ONE Stop: 07/24/17 20:01 Last Admin: 07/24/17 20:36 Dose: 20 mg Furosemide (Lasix) 20 mg IVPUSH ONETIME ONE Stop: 07/25/17 02:27 Last Admin: 07/25/17 02:40 Dose: 20 mg Furosemide (Lasix) 60 mg IVPUSH NOW ONE Stop: 07/25/17 15:43 Last Admin: 07/25/17 16:43 Dose: 60 mg Furosemide (Lasix) Confirm Administered Dose 80 mg .ROUTE .STK-MED ONE Stop: 07/25/17 16:41 Last Admin: 07/25/17 17:35 Dose: Not Given Hydromorphone HCl (Dilaudid) 1 mg IVPUSH Q6H PRN PRN Reason: Pain (moderate 4-6) Last Admin: 07/25/17 16:46 Dose: 1 mg Hydromorphone HCl (Dilaudid) 2 mg IVPUSH ONETIME ONE Stop: 07/25/17 18:45 Last Admin: 07/25/17 18:54 Dose: 2 mg Sodium Chloride (Normal Saline) 1,000 mls @ 100 mls/hr IV ASDIRECTED [facility] Stop: 07/23/17 22:31 Last Infusion: 07/23/17 13:15 Dose: 100 mls/hr Levofloxacin/Dextrose 750 mg/ (Premix) 150 mls @ 100 mls/hr IV Q24H [facility] Last Admin: 07/24/17 18:27 Dose: 100 mls/hr Piperacillin Sod/Tazobactam (Sod 3.375 gm/ Sodium Chloride) 50 mls @ 100 mls/ hr IV Q6H [facility] Last Admin: 07/24/17 02:40 Dose: 100 mls/hr Vancomycin HCl 1 gm/ Sodium (Chloride) 250 mls @ 250 mls/hr IV Q24H [facility] Vancomycin HCl 1 gm/ Sodium (Chloride) 250 mls @ 250 mls/hr IV Q24H [facility] Vancomycin HCl 1 gm/ Sodium (Chloride) 250 mls @ 250 mls/hr IV Q24H [facility] Last Admin: 07/23/17 15:20 Dose: Not Given Vancomycin HCl 1 gm/ Sodium (Chloride) 250 mls @ 250 mls/hr IV Q24H [facility] Vancomycin HCl 1,250 mg/ (Sodium Chloride) 250 mls @ 250 mls/hr IV Q36H [facility] Last Admin: 07/23/17 22:39 Dose: Not Given Vancomycin HCl 1 gm/ Sodium (Chloride) 250 mls @ 250 mls/hr IV Q24H [facility] Last Admin: 07/24/17 21:27 Dose: 250 mls/hr Cefepime HCl 2 gm/ Premix 50 mls @ 100 mls/hr IV Q12H [facility] Last Admin: 07/25/17 08:41 Dose: 100 mls/hr Lorazepam (Ativan) 2 mg IVPUSH ONETIME ONE Stop: 07/25/17 18:46 Last Admin: 07/25/17 18:54 Dose: 2 mg Morphine Sulfate (Ms Contin) 30 mg PO TID [facility] Morphine Sulfate (Ms Contin) 60 mg PO TID [facility] Prednisone (Prednisone) 40 mg PO ONETIME ONE Stop: 07/23/17 13:02 Last Admin: 07/23/17 13:35 Dose: 40 mg Vancomycin HCl (Pharmacy To Dose - Vancomycin) 1 dose .XX ASDIRECTED [facility] - Exam Quality Assessment: Supplemental Oxygen General: Alert, Oriented, Cooperative, No Acute Distress HEENT: Pupils Equal, Pupils Reactive Neck: Supple, No JVD Lungs: Clear to Auscultation, Normal Respiratory Effort, Other (Air entry to all arthur ) Cardiovascular: Regular Rate, Regular Rhythm GI/Abdominal Exam: Normal Bowel Sounds, Soft, Non-Tender, No Organomegaly (Male) Exam: Other (no visible abnormalities) Back Exam: Normal Inspection Extremities: Normal Inspection, Normal Capillary Refill Skin: Warm, Dry, Intact Neurological: No New Focal Deficit Psy/Mental Status: Alert, Normal Affect, Normal Mood - Problem List Review Problem List Initiated/Reviewed/Updated: Yes - My Orders Last 24 Hours: My Active Orders 07/25/17 15:42 Height and Weight [RC] DAILY Intake and Output Strict [RC] ASDIRECTED 07/25/17 15:45 Insert Urinary Catheter [OM.PC] Q24H 07/25/17 17:27 HYDROmorphone [Dilaudid] 2 mg IVPUSH Q4H PRN 07/26/17 05:35 SEDIMENTATION RATE AUTO [HEME] Routine - Plan Plan:: 62 yo male with pmh of COPD, MRSA empyema, CKD & Alcohol Use Disorder admitted for Hypoxia, Anemia, MRSA Pneumonia. Transfused 3 units RBC at admission. Hb improved but patient developed BL pleural effusion. Due to CKD and fluid overload, strict I&O's were needed. Planned for Fisher Insertion however insertion caused bleeding secondary to trauma. Bleeding did resolve with pressure and patient is urinating. Pleural Effusion: improved with Lasix 60 mg IV single dose. Chest CTAB today. Pleural Effusion was present at admission but exacerbated by transfusion. Echo was obtained and showed EF 60%. Possible underlying HFpEF. continue to monitor Anemia: initial iron studies consistent with ACD. Hb decreased overnight from 8.3 to 7.9. Urethral bleeding likely contributed. repeat H&H in evening. Hypoxia: improving, currently on 3L O2. may be multifactorial. MEGHAN on CKD: Cr today 2.3 (increased by 0.1 each of past 2 days). start IV NS at 50 ml/hour. strict I&O's. continue to monitor. Hematuria secondary to Urethral Trauma: resolved. continue to monitor. Hold Fisher. Continue strict I&O's. MRSA Pneumonia: continue Linezolid. f/u blood cultures. COPD: on prednisone 40mg daily and duonebs. Thrombocytopenia: Continue to monitor. Abdominal Distension: ct abdomen/pelvis wo contrast showed no ascites. Hepatic panel wnl. <Anatoliy Toledo - Last Filed: 07/26/17 16:17> - General Info Admission Dx/Problem (Free Text): I was present with the resident during history and examination. I discussed the case with the resident and agree with the findings and plan as documented in the residents note. - Patient Data Vitals - Most Recent: Last Vital Signs Temp 36.4 C 07/26/17 15:41 Pulse 79 07/26/17 15:41 Resp 20 07/26/17 15:41 BP 152/80 H 07/26/17 15:41 Pulse Ox 92 L 07/26/17 15:41 I&O - Last 24 Hours: Intake & Output 07/26/17 07/26/17 07/26/17 06:59 14:59 22:59 Intake Total 1650 1350 Output Total 1225 500 Balance 425 850 Lab Results Last 24 Hours: Laboratory Results - last 24 hr 07/26/17 07/26/17 07/26/17 Range/Units 05:35 05:35 05:35 WBC 3.36 L (4.0-11.0) K/uL RBC 2.53 L (4.50-5.90) M/uL Hgb 7.9 L (13.0-17.0) g/dL Hct 24.0 L (38.0-50.0) % MCV 94.9 (80.0-98.0) fL MCH 31.2 (27.0-32.0) pg MCHC 32.9 (31.0-37.0) g/dL RDW Std Deviation 67.7 H (28.0-62.0) fl RDW Coeff of Rommel 19 H (11.0-15.0) % Plt Count 108 L (150-400) K/uL MPV 9.50 (7.40-12.00) fL Neut % (Auto) 67.5 (48.0-80.0) % Lymph % (Auto) 25.3 (16.0-40.0) % Seward % (Auto) 6.3 (0.0-15.0) % Eos % (Auto) 0.6 (0.0-7.0) % Baso % (Auto) 0.3 (0.0-1.5) % Neut # (Auto) 2.3 (1.4-5.7) K/uL Lymph # (Auto) 0.9 (0.6-2.4) K/uL Seward # (Auto) 0.2 (0.0-0.8) K/uL Eos # (Auto) 0.0 (0.0-0.7) K/uL Baso # (Auto) 0.0 (0.0-0.1) K/uL Nucleated RBC % 0.0 /100WBC Nucleated RBCs # 0 K/uL ESR 57 H (0-19) mm/hr Sodium 139 (136-146) mmol/L Potassium 4.3 (3.5-5.1) mmol/L Chloride 107 (98-110) mmol/L Carbon Dioxide 22 (21-31) mmol/L BUN 27 H (6.0-23.0) mg/dL Creatinine 2.3 H (0.6-1.5) mg/dL Est Cr Clr Drug Dosing 35.47 mL/min Estimated GFR (MDRD) 29.0 ml/min Glucose 99 (60-110) mg/dL Calcium 8.2 L (8.8-10.8) mg/dL Med Orders - Current: Current Medications Albuterol/Ipratropium (Duoneb 3.0-0.5 Mg/3 Ml) 3 ml NEB Q6HRRT [facility] Last Admin: 07/26/17 12:04 Dose: 3 ml Folic Acid (Folic Acid) 1 mg PO DAILY [facility] Last Admin: 07/26/17 08:03 Dose: 1 mg Heparin Sodium (Porcine) (Heparin Lock Flush 100 Units/Ml) 300 unit FLUSH ASDIRECTED PRN PRN Reason: clogged picc line Last Admin: 07/26/17 13:01 Dose: 300 unit Hydromorphone HCl (Dilaudid) 2 mg IVPUSH Q4H PRN PRN Reason: Pain (moderate 4-6) Last Admin: 07/26/17 14:27 Dose: 2 mg Linezolid 600 mg/ Premix 300 mls @ 300 mls/hr IV Q12H [facility] Last Admin: 07/26/17 08:03 Dose: 300 mls/hr Sodium Chloride (Normal Saline) 1,000 mls @ 50 mls/hr IV ASDIRECTED [facility] Stop: 07/26/17 21:00 Last Admin: 07/26/17 14:24 Dose: 50 mls/hr Lorazepam (Ativan) 0.5 mg PO Q6H PRN PRN Reason: Anxiety Last Admin: 07/26/17 00:50 Dose: 0.5 mg Morphine Sulfate (Ms Contin) 60 mg PO TID [facility] Last Admin: 07/26/17 13:33 Dose: 60 mg Oxycodone HCl (Oxycodone) 5 mg PO TID PRN PRN Reason: Pain Last Admin: 07/24/17 11:13 Dose: 5 mg Prednisone (Prednisone) 40 mg PO WITHBREAKFAST [facility] Last Admin: 07/26/17 08:03 Dose: 40 mg Discontinued Medications Albuterol/Ipratropium (Duoneb 3.0-0.5 Mg/3 Ml) 3 ml NEB ONETIME ONE Stop: 07/23/17 12:18 Last Admin: 07/23/17 13:07 Dose: 3 ml Atorvastatin Calcium (Lipitor) 80 mg PO BEDTIME [facility] Last Admin: 07/23/17 22:06 Dose: Not Given Enoxaparin Sodium (Lovenox) 40 mg SUBCUT DAILY [facility] Furosemide (Lasix) 10 mg IVPUSH ONETIME ONE Stop: 07/24/17 15:01 Last Admin: 07/24/17 14:26 Dose: 10 mg Furosemide (Lasix) 20 mg IVPUSH ONETIME ONE Stop: 07/24/17 20:01 Last Admin: 07/24/17 20:36 Dose: 20 mg Furosemide (Lasix) 20 mg IVPUSH ONETIME ONE Stop: 07/25/17 02:27 Last Admin: 07/25/17 02:40 Dose: 20 mg Furosemide (Lasix) 60 mg IVPUSH NOW ONE Stop: 07/25/17 15:43 Last Admin: 07/25/17 16:43 Dose: 60 mg Furosemide (Lasix) Confirm Administered Dose 80 mg .ROUTE .STK-MED ONE Stop: 07/25/17 16:41 Last Admin: 07/25/17 17:35 Dose: Not Given Hydromorphone HCl (Dilaudid) 1 mg IVPUSH Q6H PRN PRN Reason: Pain (moderate 4-6) Last Admin: 07/25/17 16:46 Dose: 1 mg Hydromorphone HCl (Dilaudid) 2 mg IVPUSH ONETIME ONE Stop: 07/25/17 18:45 Last Admin: 07/25/17 18:54 Dose: 2 mg Sodium Chloride (Normal Saline) 1,000 mls @ 100 mls/hr IV ASDIRECTED [facility] Stop: 07/23/17 22:31 Last Infusion: 07/23/17 13:15 Dose: 100 mls/hr Levofloxacin/Dextrose 750 mg/ (Premix) 150 mls @ 100 mls/hr IV Q24H [facility] Last Admin: 07/24/17 18:27 Dose: 100 mls/hr Piperacillin Sod/Tazobactam (Sod 3.375 gm/ Sodium Chloride) 50 mls @ 100 mls/ hr IV Q6H [facility] Last Admin: 07/24/17 02:40 Dose: 100 mls/hr Vancomycin HCl 1 gm/ Sodium (Chloride) 250 mls @ 250 mls/hr IV Q24H [facility] Vancomycin HCl 1 gm/ Sodium (Chloride) 250 mls @ 250 mls/hr IV Q24H [facility] Vancomycin HCl 1 gm/ Sodium (Chloride) 250 mls @ 250 mls/hr IV Q24H [facility] Last Admin: 07/23/17 15:20 Dose: Not Given Vancomycin HCl 1 gm/ Sodium (Chloride) 250 mls @ 250 mls/hr IV Q24H [facility] Vancomycin HCl 1,250 mg/ (Sodium Chloride) 250 mls @ 250 mls/hr IV Q36H [facility] Last Admin: 07/23/17 22:39 Dose: Not Given Vancomycin HCl 1 gm/ Sodium (Chloride) 250 mls @ 250 mls/hr IV Q24H [facility] Last Admin: 07/24/17 21:27 Dose: 250 mls/hr Cefepime HCl 2 gm/ Premix 50 mls @ 100 mls/hr IV Q12H [facility] Last Admin: 07/25/17 08:41 Dose: 100 mls/hr Lorazepam (Ativan) 2 mg IVPUSH ONETIME ONE Stop: 07/25/17 18:46 Last Admin: 07/25/17 18:54 Dose: 2 mg Morphine Sulfate (Ms Contin) 30 mg PO TID [facility] Morphine Sulfate (Ms Contin) 60 mg PO TID [facility] Prednisone (Prednisone) 40 mg PO ONETIME ONE Stop: 07/23/17 13:02 Last Admin: 07/23/17 13:35 Dose: 40 mg Vancomycin HCl (Pharmacy To Dose - Vancomycin) 1 dose .XX ASDIRECTED [facility]
[2017-07-26] MEDS ORDERED: Heparin Sodium 100 Units/ML 3 ML Syringe FLUSH PRN (12:54)
[2017-07-26] MEDS ORDERED: Sodium Chloride 0.9% 1,000 ML IV SCH (13:00)
[2017-07-26] MEDS ORDERED: Docusate Sodium 100 MG Cap PO PRN (17:39)
[2017-07-27] MEDS: Albuterol/Ipratropium 3.0-0.5 MG/3 ML Neb Soln NEB SCH ×4 (00:37→17:55)
[2017-07-27] MEDS: oxyCODONE 5 MG Tab PO PRN ×2 (01:04→08:54)
[2017-07-27] MEDS: Morphine 30 MG Tab.ER PO SCH ×3 (06:06→21:38)
[2017-07-27] MEDS ORDERED: Furosemide 40 MG/4 ML VIAL IVPUSH ONE ×2 (07:00→15:00)
[2017-07-27] MEDS: predniSONE 20 MG Tab PO SCH (08:31)
[2017-07-27] MEDS: Folic Acid 1 MG Tab PO SCH (08:31)
[2017-07-27] MEDS: Linezolid 600 MG in Premix Bag 1 BAG IV SCH ×2 (08:32→21:35)
[2017-07-27] MEDS: LORazepam 0.5 MG Tab PO PRN (10:21)
--- NOTE | 2017-07-27 10:42 | PCM.PN ---
<Baluch,Pete - Last Filed: 07/27/17 14:07> - General Info Date of Service: 07/27/17 Subjective Update: Patient still complains he is not feeling good. Still having difficulty breathing. He has pulse ox that goes down to 80s with ambulation. He feeling very anxious. Appetite has been poor for 2 days now. He is urinating without difficulty. - Review of Systems General: Reports: Weakness, Fatigue. Denies: Appetite HEENT: Reports: No Symptoms Pulmonary: Reports: Shortness of Breath Cardiovascular: Reports: Dyspnea on Exertion Gastrointestinal: Reports: Decreased Appetite Genitourinary: Reports: No Symptoms Musculoskeletal: Reports: No Symptoms Skin: Reports: No Symptoms Neurological: Reports: No Symptoms Psychiatric: Reports: Mood Lability, Anxiety, Agitation - Patient Data Vitals - Most Recent: Last Vital Signs Temp 36.6 C 07/27/17 08:00 Pulse 95 07/27/17 08:00 Resp 22 H 07/27/17 08:00 BP 145/77 H 07/27/17 08:00 Pulse Ox 93 L 07/27/17 08:00 Weight - Most Recent: 95.254 kg I&O - Last 24 Hours: Intake & Output 07/26/17 07/27/17 07/27/17 22:59 06:59 14:59 Intake Total 532 1424 300 Output Total 300 300 650 Balance 232 1124 -350 Lab Results Last 24 Hours: Laboratory Results - last 24 hr 07/26/17 07/26/17 07/27/17 Range/Units 05:35 17:08 06:15 WBC 3.37 L (4.0-11.0) K/uL RBC 2.73 L (4.50-5.90) M/uL Hgb 8.9 L 8.3 L (13.0-17.0) g/dL Hct 26.7 L 25.6 L (38.0-50.0) % MCV 93.8 (80.0-98.0) fL MCH 30.4 (27.0-32.0) pg MCHC 32.4 (31.0-37.0) g/dL RDW Std Deviation 63.0 H (28.0-62.0) fl RDW Coeff of Rommel 18 H (11.0-15.0) % Plt Count 116 L (150-400) K/uL MPV 9.50 (7.40-12.00) fL Neut % (Auto) 67.7 (48.0-80.0) % Lymph % (Auto) 23.7 (16.0-40.0) % Morgan % (Auto) 8.0 (0.0-15.0) % Eos % (Auto) 0.6 (0.0-7.0) % Baso % (Auto) 0.0 (0.0-1.5) % Neut # (Auto) 2.3 (1.4-5.7) K/uL Lymph # (Auto) 0.8 (0.6-2.4) K/uL Morgan # (Auto) 0.3 (0.0-0.8) K/uL Eos # (Auto) 0.0 (0.0-0.7) K/uL Baso # (Auto) 0.0 (0.0-0.1) K/uL Nucleated RBC % 0.0 /100WBC Nucleated RBCs # 0 K/uL ESR 57 H (0-19) mm/hr Sodium (136-146) mmol/L Potassium (3.5-5.1) mmol/L Chloride (98-110) mmol/L Carbon Dioxide (21-31) mmol/L BUN (6.0-23.0) mg/dL Creatinine (0.6-1.5) mg/dL Est Cr Clr Drug Dosing mL/min Estimated GFR (MDRD) ml/min Glucose (60-110) mg/dL Calcium (8.8-10.8) mg/dL Total Bilirubin (0.1-1.5) mg/dL AST (5-40) IU/L ALT (8-54) IU/L Alkaline Phosphatase (40-150) Total Protein (6.0-8.0) g/dL Albumin (3.4-4.8) g/dL Globulin (2.0-3.5) g/dL Albumin/Globulin Ratio (1.3-2.8) 07/27/17 Range/Units 06:15 WBC (4.0-11.0) K/uL RBC (4.50-5.90) M/uL Hgb (13.0-17.0) g/dL Hct (38.0-50.0) % MCV (80.0-98.0) fL MCH (27.0-32.0) pg MCHC (31.0-37.0) g/dL RDW Std Deviation (28.0-62.0) fl RDW Coeff of Rommel (11.0-15.0) % Plt Count (150-400) K/uL MPV (7.40-12.00) fL Neut % (Auto) (48.0-80.0) % Lymph % (Auto) (16.0-40.0) % Morgan % (Auto) (0.0-15.0) % Eos % (Auto) (0.0-7.0) % Baso % (Auto) (0.0-1.5) % Neut # (Auto) (1.4-5.7) K/uL Lymph # (Auto) (0.6-2.4) K/uL Morgan # (Auto) (0.0-0.8) K/uL Eos # (Auto) (0.0-0.7) K/uL Baso # (Auto) (0.0-0.1) K/uL Nucleated RBC % /100WBC Nucleated RBCs # K/uL ESR (0-19) mm/hr Sodium 136 (136-146) mmol/L Potassium 4.2 (3.5-5.1) mmol/L Chloride 105 (98-110) mmol/L Carbon Dioxide 22 (21-31) mmol/L BUN 26 H (6.0-23.0) mg/dL Creatinine 2.2 H (0.6-1.5) mg/dL Est Cr Clr Drug Dosing 37.08 mL/min Estimated GFR (MDRD) 30.5 ml/min Glucose 101 (60-110) mg/dL Calcium 8.1 L (8.8-10.8) mg/dL Total Bilirubin 1.1 (0.1-1.5) mg/dL AST 13 (5-40) IU/L ALT 24 (8-54) IU/L Alkaline Phosphatase 92 (40-150) Total Protein 6.0 (6.0-8.0) g/dL Albumin 3.2 L (3.4-4.8) g/dL Globulin 2.8 (2.0-3.5) g/dL Albumin/Globulin Ratio 1.1 L (1.3-2.8) Johann Results Last 24 Hours: Microbiology 07/23/17 19:20 Gram Stain - Final Sputum - Expectorated Sputum Culture - Final (Mrsa) Staphylococcus Aureus Normal Respiratory Nicole Med Orders - Current: Current Medications Albuterol/Ipratropium (Duoneb 3.0-0.5 Mg/3 Ml) 3 ml NEB Q6HRRT [facility] Last Admin: 07/27/17 06:06 Dose: 3 ml Docusate Sodium (Colace) 200 mg PO BID PRN PRN Reason: Constipation Last Admin: 07/26/17 20:24 Dose: 200 mg Folic Acid (Folic Acid) 1 mg PO DAILY [facility] Last Admin: 07/27/17 08:31 Dose: 1 mg Heparin Sodium (Porcine) (Heparin Lock Flush 100 Units/Ml) 300 unit FLUSH ASDIRECTED PRN PRN Reason: clogged picc line Last Admin: 07/26/17 13:01 Dose: 300 unit Linezolid 600 mg/ Premix 300 mls @ 300 mls/hr IV Q12H [facility] Last Admin: 07/27/17 08:32 Dose: 300 mls/hr Lorazepam (Ativan) 1 mg PO Q6H PRN PRN Reason: Anxiety Morphine Sulfate (Ms Contin) 60 mg PO TID [facility] Last Admin: 07/27/17 06:06 Dose: 60 mg Oxycodone HCl (Oxycodone) 5 mg PO TID PRN PRN Reason: Pain Last Admin: 07/27/17 08:54 Dose: 5 mg Prednisone (Prednisone) 40 mg PO WITHBREAKFAST [facility] Last Admin: 07/27/17 08:31 Dose: 40 mg Discontinued Medications Albuterol/Ipratropium (Duoneb 3.0-0.5 Mg/3 Ml) 3 ml NEB ONETIME ONE Stop: 07/23/17 12:18 Last Admin: 07/23/17 13:07 Dose: 3 ml Atorvastatin Calcium (Lipitor) 80 mg PO BEDTIME [facility] Last Admin: 07/23/17 22:06 Dose: Not Given Enoxaparin Sodium (Lovenox) 40 mg SUBCUT DAILY [facility] Furosemide (Lasix) 10 mg IVPUSH ONETIME ONE Stop: 07/24/17 15:01 Last Admin: 07/24/17 14:26 Dose: 10 mg Furosemide (Lasix) 20 mg IVPUSH ONETIME ONE Stop: 07/24/17 20:01 Last Admin: 07/24/17 20:36 Dose: 20 mg Furosemide (Lasix) 20 mg IVPUSH ONETIME ONE Stop: 07/25/17 02:27 Last Admin: 07/25/17 02:40 Dose: 20 mg Furosemide (Lasix) 60 mg IVPUSH NOW ONE Stop: 07/25/17 15:43 Last Admin: 07/25/17 16:43 Dose: 60 mg Furosemide (Lasix) Confirm Administered Dose 80 mg .ROUTE .STK-MED ONE Stop: 07/25/17 16:41 Last Admin: 07/25/17 17:35 Dose: Not Given Furosemide (Lasix) 40 mg IVPUSH NOW ONE Stop: 07/27/17 07:01 Last Admin: 07/27/17 06:06 Dose: 40 mg Hydromorphone HCl (Dilaudid) 1 mg IVPUSH Q6H PRN PRN Reason: Pain (moderate 4-6) Last Admin: 07/25/17 16:46 Dose: 1 mg Hydromorphone HCl (Dilaudid) 2 mg IVPUSH Q4H PRN PRN Reason: Pain (moderate 4-6) Last Admin: 07/26/17 14:27 Dose: 2 mg Hydromorphone HCl (Dilaudid) 2 mg IVPUSH ONETIME ONE Stop: 07/25/17 18:45 Last Admin: 07/25/17 18:54 Dose: 2 mg Sodium Chloride (Normal Saline) 1,000 mls @ 100 mls/hr IV ASDIRECTED [facility] Stop: 07/23/17 22:31 Last Infusion: 07/23/17 13:15 Dose: 100 mls/hr Levofloxacin/Dextrose 750 mg/ (Premix) 150 mls @ 100 mls/hr IV Q24H [facility] Last Admin: 07/24/17 18:27 Dose: 100 mls/hr Piperacillin Sod/Tazobactam (Sod 3.375 gm/ Sodium Chloride) 50 mls @ 100 mls/ hr IV Q6H [facility] Last Admin: 07/24/17 02:40 Dose: 100 mls/hr Vancomycin HCl 1 gm/ Sodium (Chloride) 250 mls @ 250 mls/hr IV Q24H [facility] Vancomycin HCl 1 gm/ Sodium (Chloride) 250 mls @ 250 mls/hr IV Q24H [facility] Vancomycin HCl 1 gm/ Sodium (Chloride) 250 mls @ 250 mls/hr IV Q24H [facility] Last Admin: 07/23/17 15:20 Dose: Not Given Vancomycin HCl 1 gm/ Sodium (Chloride) 250 mls @ 250 mls/hr IV Q24H [facility] Vancomycin HCl 1,250 mg/ (Sodium Chloride) 250 mls @ 250 mls/hr IV Q36H [facility] Last Admin: 07/23/17 22:39 Dose: Not Given Vancomycin HCl 1 gm/ Sodium (Chloride) 250 mls @ 250 mls/hr IV Q24H [facility] Last Admin: 07/24/17 21:27 Dose: 250 mls/hr Cefepime HCl 2 gm/ Premix 50 mls @ 100 mls/hr IV Q12H [facility] Last Admin: 07/25/17 08:41 Dose: 100 mls/hr Sodium Chloride (Normal Saline) 1,000 mls @ 25 mls/hr IV ASDIRECTED [facility] Stop: 07/26/17 21:00 Last Admin: 07/26/17 14:24 Dose: 50 mls/hr Lorazepam (Ativan) 0.5 mg PO Q6H PRN PRN Reason: Anxiety Last Admin: 07/27/17 10:21 Dose: 0.5 mg Lorazepam (Ativan) 2 mg IVPUSH ONETIME ONE Stop: 07/25/17 18:46 Last Admin: 07/25/17 18:54 Dose: 2 mg Morphine Sulfate (Ms Contin) 30 mg PO TID [facility] Morphine Sulfate (Ms Contin) 60 mg PO TID [facility] Prednisone (Prednisone) 40 mg PO ONETIME ONE Stop: 07/23/17 13:02 Last Admin: 07/23/17 13:35 Dose: 40 mg Vancomycin HCl (Pharmacy To Dose - Vancomycin) 1 dose .XX ASDIRECTED [facility] - Exam Quality Assessment: Supplemental Oxygen General: Alert, Oriented, Cooperative, Mild Distress HEENT: Pupils Equal, Pupils Reactive Neck: Supple Lungs: Other (sacatterd rochi. rales at bl bases) Cardiovascular: Regular Rhythm, Tachycardia Back Exam: Normal Inspection Extremities: Normal Inspection, Normal Capillary Refill, Pedal Edema (mild bl pedal edema) Peripheral Pulses: 2+: Dorsalis Pedis (L), Dorsalis Pedis (R) Skin: Warm, Dry, Intact Neurological: No New Focal Deficit Psy/Mental Status: Alert, Labile Mood, Anxious, Depressed, Agitated - Problem List Review Problem List Initiated/Reviewed/Updated: Yes - My Orders Last 24 Hours: My Active Orders 07/26/17 12:54 Heparin Sodium [Heparin Lock Flush 100 Units/ML] 300 unit FLUSH ASDIRECTED PRN 07/26/17 13:26 Chest 1V Frontal [CR] Routine 07/26/17 17:39 Docusate Sodium [Colace] 200 mg PO BID PRN 07/27/17 10:37 LORazepam [Ativan] 1 mg PO Q6H PRN - Plan Plan:: 62 yo male with pmh of COPD, MRSA empyema, CKD & Alcohol Use Disorder admitted for Hypoxia, Anemia, MRSA Pneumonia. Transfused 3 units RBC at admission. Hb improved but patient developed BL pleural effusion. Pleural Effusion: lungs sound better, bl rales at bases. Pfossible underlying HFpEF. DC IVF. administer Lasix 40 mg IV. continue to monitor Anemia: initial iron studies consistent with ACD. Hb flucuating. continue to monitor. Hypoxia:possibly multifactorial etiology. currently on 3L O2. MEGHAN on CKD: Cr imrovedm currently 2.2. strict I&O's. continue to monitor. Hematuria secondary to Urethral Trauma: resolved. continue to monitor. Hold Sarmiento. Continue strict I&O's. MRSA Pneumonia: continue Linezolid. f/u blood cultures. COPD: on prednisone 40mg daily and duonebs. Thrombocytopenia: Continue to monitor. Abdominal Distension: ct abdomen/pelvis wo contrast showed no ascites. Hepatic panel wnl. Anxiety:increase Ativan to 1 mg PO q <Anatoliy Toledo - Last Filed: 07/27/17 15:57> - Patient Data Vitals - Most Recent: Last Vital Signs Temp 36.0 C 07/27/17 15:10 Pulse 92 07/27/17 15:10 Resp 22 H 07/27/17 15:10 BP 124/77 07/27/17 15:10 Pulse Ox 94 L 07/27/17 15:10 I&O - Last 24 Hours: Intake & Output 07/27/17 07/27/17 07/27/17 06:59 14:59 22:59 Intake Total 1424 300 Output Total 300 1100 200 Balance 1124 -800 -200 Lab Results Last 24 Hours: Laboratory Results - last 24 hr 07/26/17 07/27/17 07/27/17 Range/Units 17:08 06:15 06:15 WBC 3.37 L (4.0-11.0) K/uL RBC 2.73 L (4.50-5.90) M/uL Hgb 8.9 L 8.3 L (13.0-17.0) g/dL Hct 26.7 L 25.6 L (38.0-50.0) % MCV 93.8 (80.0-98.0) fL MCH 30.4 (27.0-32.0) pg MCHC 32.4 (31.0-37.0) g/dL RDW Std Deviation 63.0 H (28.0-62.0) fl RDW Coeff of Rommel 18 H (11.0-15.0) % Plt Count 116 L (150-400) K/uL MPV 9.50 (7.40-12.00) fL Neut % (Auto) 67.7 (48.0-80.0) % Lymph % (Auto) 23.7 (16.0-40.0) % Morgan % (Auto) 8.0 (0.0-15.0) % Eos % (Auto) 0.6 (0.0-7.0) % Baso % (Auto) 0.0 (0.0-1.5) % Neut # (Auto) 2.3 (1.4-5.7) K/uL Lymph # (Auto) 0.8 (0.6-2.4) K/uL Morgan # (Auto) 0.3 (0.0-0.8) K/uL Eos # (Auto) 0.0 (0.0-0.7) K/uL Baso # (Auto) 0.0 (0.0-0.1) K/uL Nucleated RBC % 0.0 /100WBC Nucleated RBCs # 0 K/uL Sodium 136 (136-146) mmol/L Potassium 4.2 (3.5-5.1) mmol/L Chloride 105 (98-110) mmol/L Carbon Dioxide 22 (21-31) mmol/L BUN 26 H (6.0-23.0) mg/dL Creatinine 2.2 H (0.6-1.5) mg/dL Est Cr Clr Drug Dosing 37.08 mL/min Estimated GFR (MDRD) 30.5 ml/min Glucose 101 (60-110) mg/dL Calcium 8.1 L (8.8-10.8) mg/dL Total Bilirubin 1.1 (0.1-1.5) mg/dL AST 13 (5-40) IU/L ALT 24 (8-54) IU/L Alkaline Phosphatase 92 (40-150) Total Protein 6.0 (6.0-8.0) g/dL Albumin 3.2 L (3.4-4.8) g/dL Globulin 2.8 (2.0-3.5) g/dL Albumin/Globulin Ratio 1.1 L (1.3-2.8) Johann Results Last 24 Hours: Microbiology 07/23/17 19:20 Gram Stain - Final Sputum - Expectorated Sputum Culture - Final (Mrsa) Staphylococcus Aureus Normal Respiratory Nicole Med Orders - Current: Current Medications Albuterol/Ipratropium (Duoneb 3.0-0.5 Mg/3 Ml) 3 ml NEB Q6HRRT [facility] Last Admin: 07/27/17 13:08 Dose: 3 ml Docusate Sodium (Colace) 200 mg PO BID PRN PRN Reason: Constipation Last Admin: 07/26/17 20:24 Dose: 200 mg Folic Acid (Folic Acid) 1 mg PO DAILY [facility] Last Admin: 07/27/17 08:31 Dose: 1 mg Heparin Sodium (Porcine) (Heparin Lock Flush 100 Units/Ml) 300 unit FLUSH ASDIRECTED PRN PRN Reason: clogged picc line Last Admin: 07/26/17 13:01 Dose: 300 unit Linezolid 600 mg/ Premix 300 mls @ 300 mls/hr IV Q12H [facility] Last Admin: 07/27/17 08:32 Dose: 300 mls/hr Lorazepam (Ativan) 1 mg PO Q6H PRN PRN Reason: Anxiety Morphine Sulfate (Ms Contin) 60 mg PO TID [facility] Last Admin: 07/27/17 13:06 Dose: 60 mg Oxycodone HCl (Oxycodone) 5 mg PO TID PRN PRN Reason: Pain Last Admin: 07/27/17 08:54 Dose: 5 mg Prednisone (Prednisone) 40 mg PO WITHBREAKFAST [facility] Last Admin: 07/27/17 08:31 Dose: 40 mg Discontinued Medications Albuterol/Ipratropium (Duoneb 3.0-0.5 Mg/3 Ml) 3 ml NEB ONETIME ONE Stop: 07/23/17 12:18 Last Admin: 07/23/17 13:07 Dose: 3 ml Atorvastatin Calcium (Lipitor) 80 mg PO BEDTIME [facility] Last Admin: 07/23/17 22:06 Dose: Not Given Enoxaparin Sodium (Lovenox) 40 mg SUBCUT DAILY [facility] Furosemide (Lasix) 10 mg IVPUSH ONETIME ONE Stop: 07/24/17 15:01 Last Admin: 07/24/17 14:26 Dose: 10 mg Furosemide (Lasix) 20 mg IVPUSH ONETIME ONE Stop: 07/24/17 20:01 Last Admin: 07/24/17 20:36 Dose: 20 mg Furosemide (Lasix) 20 mg IVPUSH ONETIME ONE Stop: 07/25/17 02:27 Last Admin: 07/25/17 02:40 Dose: 20 mg Furosemide (Lasix) 60 mg IVPUSH NOW ONE Stop: 07/25/17 15:43 Last Admin: 07/25/17 16:43 Dose: 60 mg Furosemide (Lasix) Confirm Administered Dose 80 mg .ROUTE .STK-MED ONE Stop: 07/25/17 16:41 Last Admin: 07/25/17 17:35 Dose: Not Given Furosemide (Lasix) 40 mg IVPUSH NOW ONE Stop: 07/27/17 07:01 Last Admin: 07/27/17 06:06 Dose: 40 mg Furosemide (Lasix) 40 mg IVPUSH NOW ONE Stop: 07/27/17 15:01 Last Admin: 07/27/17 15:02 Dose: 40 mg Hydromorphone HCl (Dilaudid) 1 mg IVPUSH Q6H PRN PRN Reason: Pain (moderate 4-6) Last Admin: 07/25/17 16:46 Dose: 1 mg Hydromorphone HCl (Dilaudid) 2 mg IVPUSH Q4H PRN PRN Reason: Pain (moderate 4-6) Last Admin: 07/26/17 14:27 Dose: 2 mg Hydromorphone HCl (Dilaudid) 2 mg IVPUSH ONETIME ONE Stop: 07/25/17 18:45 Last Admin: 07/25/17 18:54 Dose: 2 mg Sodium Chloride (Normal Saline) 1,000 mls @ 100 mls/hr IV ASDIRECTED [facility] Stop: 07/23/17 22:31 Last Infusion: 07/23/17 13:15 Dose: 100 mls/hr Levofloxacin/Dextrose 750 mg/ (Premix) 150 mls @ 100 mls/hr IV Q24H [facility] Last Admin: 07/24/17 18:27 Dose: 100 mls/hr Piperacillin Sod/Tazobactam (Sod 3.375 gm/ Sodium Chloride) 50 mls @ 100 mls/ hr IV Q6H [facility] Last Admin: 07/24/17 02:40 Dose: 100 mls/hr Vancomycin HCl 1 gm/ Sodium (Chloride) 250 mls @ 250 mls/hr IV Q24H [facility] Vancomycin HCl 1 gm/ Sodium (Chloride) 250 mls @ 250 mls/hr IV Q24H [facility] Vancomycin HCl 1 gm/ Sodium (Chloride) 250 mls @ 250 mls/hr IV Q24H [facility] Last Admin: 07/23/17 15:20 Dose: Not Given Vancomycin HCl 1 gm/ Sodium (Chloride) 250 mls @ 250 mls/hr IV Q24H [facility] Vancomycin HCl 1,250 mg/ (Sodium Chloride) 250 mls @ 250 mls/hr IV Q36H [facility] Last Admin: 07/23/17 22:39 Dose: Not Given Vancomycin HCl 1 gm/ Sodium (Chloride) 250 mls @ 250 mls/hr IV Q24H [facility] Last Admin: 07/24/17 21:27 Dose: 250 mls/hr Cefepime HCl 2 gm/ Premix 50 mls @ 100 mls/hr IV Q12H [facility] Last Admin: 07/25/17 08:41 Dose: 100 mls/hr Sodium Chloride (Normal Saline) 1,000 mls @ 25 mls/hr IV ASDIRECTED [facility] Stop: 07/26/17 21:00 Last Admin: 07/26/17 14:24 Dose: 50 mls/hr Lorazepam (Ativan) 0.5 mg PO Q6H PRN PRN Reason: Anxiety Last Admin: 07/27/17 10:21 Dose: 0.5 mg Lorazepam (Ativan) 2 mg IVPUSH ONETIME ONE Stop: 07/25/17 18:46 Last Admin: 07/25/17 18:54 Dose: 2 mg Lorazepam (Ativan) 0.5 mg PO ONETIME ONE Stop: 07/27/17 11:06 Last Admin: 07/27/17 11:24 Dose: 0.5 mg Morphine Sulfate (Ms Contin) 30 mg PO TID [facility] Morphine Sulfate (Ms Contin) 60 mg PO TID [facility] Prednisone (Prednisone) 40 mg PO ONETIME ONE Stop: 07/23/17 13:02 Last Admin: 07/23/17 13:35 Dose: 40 mg Vancomycin HCl (Pharmacy To Dose - Vancomycin) 1 dose .XX ASDIRECTED [facility] - Plan Plan:: I was present with the resident during history and examination. I discussed the case with the resident and agree with the findings and plan as documented in the residents note.
[2017-07-27] MEDS ORDERED: LORazepam 0.5 MG Tab PO ONE (11:05)
[2017-07-27] MEDS: LORazepam 1 MG Tab PO PRN (21:52)
[2017-07-28] MEDS: Albuterol/Ipratropium 3.0-0.5 MG/3 ML Neb Soln NEB SCH ×5 (04:25→23:45)
[2017-07-28] MEDS: Morphine 30 MG Tab.ER PO SCH ×3 (05:50→21:40)
[2017-07-28] MEDS: Linezolid 600 MG in Premix Bag 1 BAG IV SCH ×2 (08:34→21:31)
[2017-07-28] MEDS: predniSONE 20 MG Tab PO SCH (08:44)
[2017-07-28] MEDS: Folic Acid 1 MG Tab PO SCH (08:45)
[2017-07-28] MEDS: oxyCODONE 5 MG Tab PO PRN ×2 (09:08→19:17)
--- NOTE | 2017-07-28 10:23 | CR ---
EXAM DATE: 07/23/17 PATIENT'S AGE: 62 Patient: JAMI GUTIERREZ Facility: [place], [place] Site . Site : [id number] Study: XRay Chest [id number] 1:47:24 PM Ordering Physician: Danielle Yi Final Report: INDICATION: Evaluate PICC line placement. TECHNIQUE: Chest 1 view. COMPARISON: 07/25/2017. FINDINGS: The right internal jugular catheter is stable with tip in the distal SVC. The right upper extremity PICC has been pulled back approximately 3 cm and the tip is likely at the junction of the innominate and SVC. The cardial mediastinal silhouette is stable. Central pulmonary vasculature is indistinct. There is increased large wedge-shaped opacity in the lateral right mid lung. Bilateral interstitial opacities are not significantly changed. Small pleural effusions, right greater than left are grossly stable. No definite pneumothorax. Osseous structures are stable. IMPRESSION: 1. The right upper extremity PICC has been pulled back approximately 3 cm and the tip is likely at the junction of the innominate and SVC. 2. Increased large wedge-shaped opacity in the lateral right mid lung. 3. Bilateral interstitial opacities with small bilateral pleural effusions consistent with pulmonary edema. Dictated by Burt Negrete MD @ 07/26/2017 2:12:03 PM Dictated by: Burt Negrete MD @ 07/26/2017 14:12:21 (Electronic Signature) Report Signed by Proxy. [place]
--- NOTE | 2017-07-28 17:53 | PCM.PN ---
<Baluch,Pete - Last Filed: 07/28/17 17:53> - General Info Date of Service: 07/28/17 Admission Dx/Problem (Free Text): I was present with the resident during history and examination. I discussed the case with the resident and agree with the findings and plan as documented in the residents note. Subjective Update: Patient states he feels much better today. He has energy and hav been walking around. He is still having FRASER. O2 drops to 80s with ambulation. He is prepared to go home with O2 - Review of Systems General: Reports: Fatigue HEENT: Reports: No Symptoms Pulmonary: Reports: No Symptoms Cardiovascular: Reports: No Symptoms, Dyspnea on Exertion Gastrointestinal: Reports: No Symptoms Genitourinary: Reports: No Symptoms Musculoskeletal: Reports: No Symptoms Skin: Reports: No Symptoms Neurological: Reports: No Symptoms Psychiatric: Reports: Anxiety - Patient Data Vitals - Most Recent: Last Vital Signs Temp 36.8 C 07/28/17 11:59 Pulse 91 07/28/17 11:59 Resp 20 07/28/17 11:59 BP 132/69 07/28/17 11:59 Pulse Ox 91 L 07/28/17 11:59 Weight - Most Recent: 93.128 kg I&O - Last 24 Hours: Intake & Output 07/28/17 07/28/17 07/28/17 06:59 14:59 22:59 Intake Total 360 620 Output Total 1300 300 Balance -940 320 Lab Results Last 24 Hours: Laboratory Results - last 24 hr 07/28/17 07/28/17 Range/Units 05:48 05:48 WBC 3.22 L (4.0-11.0) K/uL RBC 2.64 L (4.50-5.90) M/uL Hgb 8.2 L (13.0-17.0) g/dL Hct 25.0 L (38.0-50.0) % MCV 94.7 (80.0-98.0) fL MCH 31.1 (27.0-32.0) pg MCHC 32.8 (31.0-37.0) g/dL RDW Std Deviation 63.1 H (28.0-62.0) fl RDW Coeff of Rommel 18 H (11.0-15.0) % Plt Count 123 L (150-400) K/uL MPV 9.40 (7.40-12.00) fL Nucleated RBC % 0.0 /100WBC Nucleated RBCs # 0 K/uL Sodium 139 (136-146) mmol/L Potassium 4.6 (3.5-5.1) mmol/L Chloride 107 (98-110) mmol/L Carbon Dioxide 22 (21-31) mmol/L BUN 31 H (6.0-23.0) mg/dL Creatinine 2.2 H (0.6-1.5) mg/dL Est Cr Clr Drug Dosing 36.93 mL/min Estimated GFR (MDRD) 30.5 ml/min Glucose 102 (60-110) mg/dL Calcium 8.2 L (8.8-10.8) mg/dL Med Orders - Current: Current Medications Albuterol/Ipratropium (Duoneb 3.0-0.5 Mg/3 Ml) 3 ml NEB Q6HRRT [facility] Last Admin: 07/28/17 12:04 Dose: 3 ml Docusate Sodium (Colace) 200 mg PO BID PRN PRN Reason: Constipation Last Admin: 07/26/17 20:24 Dose: 200 mg Folic Acid (Folic Acid) 1 mg PO DAILY [facility] Last Admin: 07/28/17 08:45 Dose: 1 mg Heparin Sodium (Porcine) (Heparin Lock Flush 100 Units/Ml) 300 unit FLUSH ASDIRECTED PRN PRN Reason: clogged picc line Last Admin: 07/26/17 13:01 Dose: 300 unit Linezolid 600 mg/ Premix 300 mls @ 300 mls/hr IV Q12H [facility] Last Admin: 07/28/17 08:34 Dose: 300 mls/hr Lorazepam (Ativan) 1 mg PO Q6H PRN PRN Reason: Anxiety Last Admin: 07/27/17 21:52 Dose: 1 mg Morphine Sulfate (Ms Contin) 60 mg PO TID [facility] Last Admin: 07/28/17 14:07 Dose: 60 mg Oxycodone HCl (Oxycodone) 5 mg PO TID PRN PRN Reason: Pain Last Admin: 07/28/17 09:08 Dose: 5 mg Prednisone (Prednisone) 40 mg PO WITHBREAKFAST [facility] Last Admin: 07/28/17 08:44 Dose: 40 mg Discontinued Medications Albuterol/Ipratropium (Duoneb 3.0-0.5 Mg/3 Ml) 3 ml NEB ONETIME ONE Stop: 07/23/17 12:18 Last Admin: 07/23/17 13:07 Dose: 3 ml Atorvastatin Calcium (Lipitor) 80 mg PO BEDTIME [facility] Last Admin: 07/23/17 22:06 Dose: Not Given Enoxaparin Sodium (Lovenox) 40 mg SUBCUT DAILY [facility] Furosemide (Lasix) 10 mg IVPUSH ONETIME ONE Stop: 07/24/17 15:01 Last Admin: 07/24/17 14:26 Dose: 10 mg Furosemide (Lasix) 20 mg IVPUSH ONETIME ONE Stop: 07/24/17 20:01 Last Admin: 07/24/17 20:36 Dose: 20 mg Furosemide (Lasix) 20 mg IVPUSH ONETIME ONE Stop: 07/25/17 02:27 Last Admin: 07/25/17 02:40 Dose: 20 mg Furosemide (Lasix) 60 mg IVPUSH NOW ONE Stop: 07/25/17 15:43 Last Admin: 07/25/17 16:43 Dose: 60 mg Furosemide (Lasix) Confirm Administered Dose 80 mg .ROUTE .STK-MED ONE Stop: 07/25/17 16:41 Last Admin: 07/25/17 17:35 Dose: Not Given Furosemide (Lasix) 40 mg IVPUSH NOW ONE Stop: 07/27/17 07:01 Last Admin: 07/27/17 06:06 Dose: 40 mg Furosemide (Lasix) 40 mg IVPUSH NOW ONE Stop: 07/27/17 15:01 Last Admin: 07/27/17 15:02 Dose: 40 mg Hydromorphone HCl (Dilaudid) 1 mg IVPUSH Q6H PRN PRN Reason: Pain (moderate 4-6) Last Admin: 07/25/17 16:46 Dose: 1 mg Hydromorphone HCl (Dilaudid) 2 mg IVPUSH Q4H PRN PRN Reason: Pain (moderate 4-6) Last Admin: 07/26/17 14:27 Dose: 2 mg Hydromorphone HCl (Dilaudid) 2 mg IVPUSH ONETIME ONE Stop: 07/25/17 18:45 Last Admin: 07/25/17 18:54 Dose: 2 mg Sodium Chloride (Normal Saline) 1,000 mls @ 100 mls/hr IV ASDIRECTED [facility] Stop: 07/23/17 22:31 Last Infusion: 07/23/17 13:15 Dose: 100 mls/hr Levofloxacin/Dextrose 750 mg/ (Premix) 150 mls @ 100 mls/hr IV Q24H [facility] Last Admin: 07/24/17 18:27 Dose: 100 mls/hr Piperacillin Sod/Tazobactam (Sod 3.375 gm/ Sodium Chloride) 50 mls @ 100 mls/ hr IV Q6H [facility] Last Admin: 07/24/17 02:40 Dose: 100 mls/hr Vancomycin HCl 1 gm/ Sodium (Chloride) 250 mls @ 250 mls/hr IV Q24H [facility] Vancomycin HCl 1 gm/ Sodium (Chloride) 250 mls @ 250 mls/hr IV Q24H [facility] Vancomycin HCl 1 gm/ Sodium (Chloride) 250 mls @ 250 mls/hr IV Q24H [facility] Last Admin: 07/23/17 15:20 Dose: Not Given Vancomycin HCl 1 gm/ Sodium (Chloride) 250 mls @ 250 mls/hr IV Q24H [facility] Vancomycin HCl 1,250 mg/ (Sodium Chloride) 250 mls @ 250 mls/hr IV Q36H [facility] Last Admin: 07/23/17 22:39 Dose: Not Given Vancomycin HCl 1 gm/ Sodium (Chloride) 250 mls @ 250 mls/hr IV Q24H [facility] Last Admin: 07/24/17 21:27 Dose: 250 mls/hr Cefepime HCl 2 gm/ Premix 50 mls @ 100 mls/hr IV Q12H [facility] Last Admin: 07/25/17 08:41 Dose: 100 mls/hr Sodium Chloride (Normal Saline) 1,000 mls @ 25 mls/hr IV ASDIRECTED [facility] Stop: 07/26/17 21:00 Last Admin: 07/26/17 14:24 Dose: 50 mls/hr Lorazepam (Ativan) 0.5 mg PO Q6H PRN PRN Reason: Anxiety Last Admin: 07/27/17 10:21 Dose: 0.5 mg Lorazepam (Ativan) 2 mg IVPUSH ONETIME ONE Stop: 07/25/17 18:46 Last Admin: 07/25/17 18:54 Dose: 2 mg Lorazepam (Ativan) 0.5 mg PO ONETIME ONE Stop: 07/27/17 11:06 Last Admin: 07/27/17 11:24 Dose: 0.5 mg Morphine Sulfate (Ms Contin) 30 mg PO TID [facility] Morphine Sulfate (Ms Contin) 60 mg PO TID [facility] Prednisone (Prednisone) 40 mg PO ONETIME ONE Stop: 07/23/17 13:02 Last Admin: 07/23/17 13:35 Dose: 40 mg Vancomycin HCl (Pharmacy To Dose - Vancomycin) 1 dose .XX ASDIRECTED [facility] - Exam Quality Assessment: Supplemental Oxygen General: Alert, Oriented HEENT: Pupils Equal, Pupils Reactive Neck: Supple, No JVD, +2 Carotid Pulse wo Bruit Lungs: Clear to Auscultation, Normal Respiratory Effort, Other (rare scattered crackles, good air entry) Cardiovascular: Regular Rate, Regular Rhythm GI/Abdominal Exam: Normal Bowel Sounds, Soft, Non-Tender Extremities: Normal Inspection, Normal Range of Motion, Normal Capillary Refill Skin: Warm, Dry, Intact Neurological: No New Focal Deficit Psy/Mental Status: Labile Mood, Anxious - Problem List Review Problem List Initiated/Reviewed/Updated: Yes - Plan Plan:: 62 yo male with pmh of COPD, MRSA empyema, CKD & Alcohol Use Disorder admitted for Hypoxia, Anemia, MRSA Pneumonia. Transfused 3 units RBC at admission. Hb improved but patient developed BL pleural effusion. He was diuresed with Lasix. Feels much better today. would like to go home tomorrow Pleural Effusion: CTAB. monitor Anemia: initial iron studies consistent with ACD. Hb flucuating. continue to monitor. Hypoxia:possibly multifactorial etiology. currently on 3L O2. MEGHAN on CKD: Cr imrovedtrict I&O's. continue to monitor. Hematuria secondary to Urethral Trauma: resolved. continue to monitor. Hold Sarmiento. Continue strict I&O's. MRSA Pneumonia: continue Linezolid. f/u blood cultures. COPD: on prednisone 40mg daily and duonebs. Thrombocytopenia: Continue to monitor. Abdominal Distension: ct abdomen/pelvis wo contrast showed no ascites. Hepatic panel wnl. Anxiety:increase Ativan to 1 mg PO q <Anatoliy Toledo - Last Filed: 08/07/17 08:25> - General Info Admission Dx/Problem (Free Text): I was present with the resident during history and examination. I discussed the case with the resident and agree with the findings and plan as documented in the residents note. - Patient Data Vitals - Most Recent: Last Vital Signs Temp 36.7 C 07/29/17 07:33 Pulse 84 07/29/17 07:33 Resp 20 07/29/17 07:33 BP 153/81 H 07/29/17 07:33 Pulse Ox 91 L 07/29/17 12:12 Med Orders - Current: Current Medications Discontinued Medications Albuterol/Ipratropium (Duoneb 3.0-0.5 Mg/3 Ml) 3 ml NEB ONETIME ONE Stop: 07/23/17 12:18 Last Admin: 07/23/17 13:07 Dose: 3 ml Albuterol/Ipratropium (Duoneb 3.0-0.5 Mg/3 Ml) 3 ml NEB Q6HRRT [facility] Last Admin: 07/29/17 13:07 Dose: Not Given Alteplase, Recombinant (Cathflo Activase) 2 mg IVPUSH ONETIME ONE Stop: 07/29/17 08:31 Last Admin: 07/29/17 11:41 Dose: Not Given Atorvastatin Calcium (Lipitor) 80 mg PO BEDTIME [facility] Last Admin: 07/23/17 22:06 Dose: Not Given Docusate Sodium (Colace) 200 mg PO BID PRN PRN Reason: Constipation Last Admin: 07/26/17 20:24 Dose: 200 mg Enoxaparin Sodium (Lovenox) 40 mg SUBCUT DAILY [facility] Folic Acid (Folic Acid) 1 mg PO DAILY [facility] Last Admin: 07/29/17 08:03 Dose: 1 mg Furosemide (Lasix) 10 mg IVPUSH ONETIME ONE Stop: 07/24/17 15:01 Last Admin: 07/24/17 14:26 Dose: 10 mg Furosemide (Lasix) 20 mg IVPUSH ONETIME ONE Stop: 07/24/17 20:01 Last Admin: 07/24/17 20:36 Dose: 20 mg Furosemide (Lasix) 20 mg IVPUSH ONETIME ONE Stop: 07/25/17 02:27 Last Admin: 07/25/17 02:40 Dose: 20 mg Furosemide (Lasix) 60 mg IVPUSH NOW ONE Stop: 07/25/17 15:43 Last Admin: 07/25/17 16:43 Dose: 60 mg Furosemide (Lasix) Confirm Administered Dose 80 mg .ROUTE .STK-MED ONE Stop: 07/25/17 16:41 Last Admin: 07/25/17 17:35 Dose: Not Given Furosemide (Lasix) 40 mg IVPUSH NOW ONE Stop: 07/27/17 07:01 Last Admin: 07/27/17 06:06 Dose: 40 mg Furosemide (Lasix) 40 mg IVPUSH NOW ONE Stop: 07/27/17 15:01 Last Admin: 07/27/17 15:02 Dose: 40 mg Heparin Sodium (Porcine) (Heparin Lock Flush 100 Units/Ml) 300 unit FLUSH ASDIRECTED PRN PRN Reason: clogged picc line Last Admin: 07/26/17 13:01 Dose: 300 unit Hydromorphone HCl (Dilaudid) 1 mg IVPUSH Q6H PRN PRN Reason: Pain (moderate 4-6) Last Admin: 07/25/17 16:46 Dose: 1 mg Hydromorphone HCl (Dilaudid) 2 mg IVPUSH Q4H PRN PRN Reason: Pain (moderate 4-6) Last Admin: 07/26/17 14:27 Dose: 2 mg Hydromorphone HCl (Dilaudid) 2 mg IVPUSH ONETIME ONE Stop: 07/25/17 18:45 Last Admin: 07/25/17 18:54 Dose: 2 mg Sodium Chloride (Normal Saline) 1,000 mls @ 100 mls/hr IV ASDIRECTED [facility] Stop: 07/23/17 22:31 Last Infusion: 07/23/17 13:15 Dose: 100 mls/hr Levofloxacin/Dextrose 750 mg/ (Premix) 150 mls @ 100 mls/hr IV Q24H [facility] Last Admin: 07/24/17 18:27 Dose: 100 mls/hr Piperacillin Sod/Tazobactam (Sod 3.375 gm/ Sodium Chloride) 50 mls @ 100 mls/ hr IV Q6H [facility] Last Admin: 07/24/17 02:40 Dose: 100 mls/hr Vancomycin HCl 1 gm/ Sodium (Chloride) 250 mls @ 250 mls/hr IV Q24H [facility] Vancomycin HCl 1 gm/ Sodium (Chloride) 250 mls @ 250 mls/hr IV Q24H [facility] Vancomycin HCl 1 gm/ Sodium (Chloride) 250 mls @ 250 mls/hr IV Q24H [facility] Last Admin: 07/23/17 15:20 Dose: Not Given Vancomycin HCl 1 gm/ Sodium (Chloride) 250 mls @ 250 mls/hr IV Q24H [facility] Vancomycin HCl 1,250 mg/ (Sodium Chloride) 250 mls @ 250 mls/hr IV Q36H [facility] Last Admin: 07/23/17 22:39 Dose: Not Given Vancomycin HCl 1 gm/ Sodium (Chloride) 250 mls @ 250 mls/hr IV Q24H [facility] Last Admin: 07/24/17 21:27 Dose: 250 mls/hr Cefepime HCl 2 gm/ Premix 50 mls @ 100 mls/hr IV Q12H [facility] Last Admin: 07/25/17 08:41 Dose: 100 mls/hr Linezolid 600 mg/ Premix 300 mls @ 300 mls/hr IV Q12H [facility] Last Admin: 07/29/17 08:03 Dose: 300 mls/hr Sodium Chloride (Normal Saline) 1,000 mls @ 25 mls/hr IV ASDIRECTED [facility] Stop: 07/26/17 21:00 Last Admin: 07/26/17 14:24 Dose: 50 mls/hr Vancomycin HCl 1 gm/ Sodium (Chloride) 250 mls @ 167 mls/hr IV Q24H [facility] Last Admin: 07/29/17 09:54 Dose: 167 mls/hr Lorazepam (Ativan) 0.5 mg PO Q6H PRN PRN Reason: Anxiety Last Admin: 07/27/17 10:21 Dose: 0.5 mg Lorazepam (Ativan) 2 mg IVPUSH ONETIME ONE Stop: 07/25/17 18:46 Last Admin: 07/25/17 18:54 Dose: 2 mg Lorazepam (Ativan) 1 mg PO Q6H PRN PRN Reason: Anxiety Last Admin: 07/28/17 21:39 Dose: 1 mg Lorazepam (Ativan) 0.5 mg PO ONETIME ONE Stop: 07/27/17 11:06 Last Admin: 07/27/17 11:24 Dose: 0.5 mg Morphine Sulfate (Ms Contin) 30 mg PO TID [facility] Morphine Sulfate (Ms Contin) 60 mg PO TID [facility] Morphine Sulfate (Ms Contin) 60 mg PO TID [facility] Last Admin: 07/29/17 06:00 Dose: 60 mg Oxycodone HCl (Oxycodone) 5 mg PO TID PRN PRN Reason: Pain Last Admin: 07/28/17 19:17 Dose: 5 mg Prednisone (Prednisone) 40 mg PO ONETIME ONE Stop: 07/23/17 13:02 Last Admin: 07/23/17 13:35 Dose: 40 mg Prednisone (Prednisone) 40 mg PO WITHBREAKFAST [facility] Last Admin: 07/29/17 08:03 Dose: 40 mg Vancomycin HCl (Pharmacy To Dose - Vancomycin) 1 dose .XX ASDIRECTED [facility]
[2017-07-28] MEDS: LORazepam 1 MG Tab PO PRN (21:39)
[2017-07-29] MEDS: Morphine 30 MG Tab.ER PO SCH (06:00)
[2017-07-29] MEDS: Albuterol/Ipratropium 3.0-0.5 MG/3 ML Neb Soln NEB SCH ×2 (06:39→13:07)
[2017-07-29 07:34] VITALS: BP 153/81
[2017-07-29] MEDS: Linezolid 600 MG in Premix Bag 1 BAG IV SCH (08:03)
[2017-07-29] MEDS: Folic Acid 1 MG Tab PO SCH (08:03)
[2017-07-29] MEDS: predniSONE 20 MG Tab PO SCH (08:03)
[2017-07-29] MEDS ORDERED: Alteplase 2 MG Vial IVPUSH ONE (08:30)
--- NOTE | 2017-07-29 10:43 | PCM.DCSUM1 ---
Discharge Summary - Hospital Course Brief History: 62 yo male with pmh of COPD with recent hospitalization in May regarding spontaneous pneumothorax with complications of MRSA empyema and kidney failure requiring short term dialysis. Since discharge he has been doing well until past week he reports increasing weakness, shortness of breath, cough, malaise and chills. He is receiving vancomycin via PICC as an outpatient. He was seen in [facility]'s clinic and noted to be satting 70% on RA with chest x-ray that shows left basilar infiltrate possible small pleural effusion. He also reported he was sent home from [place] with oxygen for ambulation but was unable to get it until the day before going to Dr Osborne office and hospital. - Discharge Data Discharge Date: 07/29/17 Discharge Disposition: Home, Self-Care 01 Condition: Stable - Discharge Diagnosis/Problem(s) (1) COPD (chronic obstructive pulmonary disease) SNOMED Code(s): 93174764 ICD Code: J44.9 - CHRONIC OBSTRUCTIVE PULMONARY DISEASE, UNSPECIFIED Status : Acute Current Visit: Yes Qualifiers: COPD type: emphysema Emphysema type: unspecified Qualified Code(s): J43.9 - Emphysema, unspecified (2) Hx of pneumothorax SNOMED Code(s): 687764960 ICD Code: Z87.09 - PERSONAL HISTORY OF OTHER DISEASES OF THE RESPIRATORY SYSTEM Status: Chronic Current Visit: Yes (3) History of MRSA infection of lungs SNOMED Code(s): 412740423 ICD Code: Z86.14 - PERSONAL HISTORY OF METHICILLIN RESIS STAPH INFECTION Status: Chronic Current Visit: Yes (4) Alcohol abuse SNOMED Code(s): 41298459 ICD Code: F10.10 - ALCOHOL ABUSE, UNCOMPLICATED Status: Chronic Current Visit: Yes (5) Anemia SNOMED Code(s): 147024235 ICD Code: D64.9 - ANEMIA, UNSPECIFIED Status: Chronic Current Visit: Yes Qualifiers: Anemia type: other cause Other causes of anemia: chronic disease, other Qualified Code(s): D63.8 - Anemia in other chronic diseases classified elsewhere (6) Chronic back pain SNOMED Code(s): 826803127 ICD Code: M54.9 - DORSALGIA, UNSPECIFIED; G89.29 - OTHER CHRONIC PAIN Status: Chronic Current Visit: Yes (7) MEGHAN (acute kidney injury) SNOMED Code(s): 87510057 ICD Code: N17.9 - ACUTE KIDNEY FAILURE, UNSPECIFIED Status: Acute Current Visit: Yes - Patient Summary/Data Consults: Dr. Erazo for removal of Permcath. - Patient Instructions Diet: Heart Healthy Diet, Low Sodium Activity: As Tolerated Showering/Bathing: May Shower Notify Provider of: Fever, Increased Pain, Swelling and Redness, Drainage, Nausea and/or Vomiting - Discharge Plan Prescriptions/Med Rec: Prednisone [IJD: Prednisone] 10 - 40 mg PO DAILY #28 tab Home Medications: Home Meds oxyCODONE 5 mg PO TID PRN 06/14/17 [History] Albuterol/Ipratropium [DuoNeb 3.0-0.5 MG/3 ML] 3 ml NEB Q4HRRT 07/23/17 [History ] Folic Acid 1 mg PO DAILY 07/23/17 [History] Morphine [MS Contin] 60 mg PO TID 07/23/17 [History] Polyethylene Glycol 3350 [MiraLAX] 17 gm PO DAILY 07/23/17 [History] Prednisone [IJD: Prednisone] 5 mg PO ASDIRECTED 07/23/17 [History] Sennosides/Docusate Sodium [Senna S Tablet] 1 tab PO BID PRN 07/23/17 [History] Vancomycin 1.25 gm IV Q24H 07/23/17 [History] atorvaSTATin [Lipitor] 80 mg PO BEDTIME 07/23/17 [History] Prednisone [IJD: Prednisone] 10 - 40 mg PO DAILY #28 tab 07/29/17 [Rx] Patient Handouts: Prednisone tablets, Community-Acquired Pneumonia, Adult, Easy -to-Read Referrals: [facility] [Outside] David Erazo MD [Physician] - 07/31/17 9:45 am (Please check in at 0930 AM) Osito Camilo MD [Physician] - 08/06/17 9:00 am ([facility] [phone]) - Discharge Summary/Plan Comment DC Time >30 min.: No Discharge Summary/Plan Comment: DISCHARGE DIAGNOSES: COPD, 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 Hx Permcath for dialysis PICC line in place for IV antibiotics in place and arranged for Dr. Conway Tristian was admitted and treated with broad spectrum antibiotics for suspected worsening pneumonia and COPD exacerbation with increasing his dose of Prednisone to 40 mg. His admission Hgb was noted to be 8.1 from clinic records, hgb dropped to 6.0 the following day. He was transfused 3 units PRBCs, hgb has remained stable since at 8.2 today. Hemoccult negative. Anemia upon discharge in [place] noted and thought secondary to MEGHAN and chronic alcohol abuse. BUN 25 and Cr 1.93 on admission. MRSA grew out sputum culture, BC negative. SOB improved and was weaned off oxygen at rest. He again continues to need oxygen 2 l NC for activity as he was sent home on from [place]. He was encouraged to continue this. He will be sent home today with continuing his IV Vancomycin as outpatient as previously ordered. PICC line remains in place and flushing. After transfusions, he was noted to develop bilateral pleural effusions, he was treated with Lasix and this improve along with his SOB. ECHO was obtained, which EV was normal and no pulmonary hypertension noted. He will be scheduled to see his PCP, Dr. Camilo next week. I also spoke with Dr. Adam Phoenix, [employer] in [place] regarding Permcath. He missed he follow up on and has appointment scheduled with Dr. Dodd when he comes to [place] September 17. I updated Dr. Phoenix on BUN/Cr and when his thoughts were on the permcath. He recommends having one of our surgeons removing this for us. Patient denies wanting to go back to [place] for any follow up and would prefer this was completed here in [place] as possible. I spoke with Dr. Erazo, artificial stone setter general surgeon, who is unable to see him today but is wiling to see him as outpatient and set up a time to remove the PermCath to L subclavian. He will be sent home today with Prednisone taper and then to resume 5 mg daily after taper. Continue home oxygen with activity. Continue with Vancomycin as outpatient. He is to follow up with Dr. Camilo and Dr Erazo as scheduled. He is to return to ED or clinic if concerns should arise. - General Info Date of Service: 07/29/17 Admission Dx/Problem (Free Text: COPD exacerbation, MRSA PNA Subjective Update: Doing well this morning, not needing oxygen at rest. Denies chest pain or SOB. Has continued FRASER, especially without oxygen. Sats drop to 83%. Eager to be discharged today. Functional Status: Reports: Pain Controlled, Tolerating Diet, Ambulating, Urinating - Review of Systems General: Reports: No Symptoms. Denies: Fever Pulmonary: Reports: No Symptoms. Denies: Pleuritic Chest Pain, Cough Cardiovascular: Reports: Dyspnea on Exertion, Edema (about baseline to BLE). Denies: Orthopnea Gastrointestinal: Reports: No Symptoms. Denies: Abdominal Pain, Nausea, Vomiting Genitourinary: Reports: No Symptoms. Denies: Dysuria, Frequency Musculoskeletal: Reports: No Symptoms Psychiatric: Reports: No Symptoms - Patient Data Vitals - Most Recent: Last Vital Signs Temp 98.1 F 07/29/17 07:33 Pulse 84 07/29/17 07:33 Resp 20 07/29/17 07:33 BP 153/81 H 07/29/17 07:33 Pulse Ox 94 L 07/29/17 07:33 Weight - Most Recent: 93.44 kg I&O - Last 24 hours: Intake & Output 07/28/17 07/29/17 07/29/17 22:59 06:59 14:59 Intake Total 620 500 300 Output Total 300 1425 Balance 320 -925 300 Lab Results - Last 24 hrs: Laboratory Results - last 24 hr 07/29/17 07/29/17 Range/Units 04:45 04:45 WBC 3.30 L (4.0-11.0) K/uL RBC 2.75 L (4.50-5.90) M/uL Hgb 8.5 L (13.0-17.0) g/dL Hct 26.1 L (38.0-50.0) % MCV 94.9 (80.0-98.0) fL MCH 30.9 (27.0-32.0) pg MCHC 32.6 (31.0-37.0) g/dL RDW Std Deviation 61.7 (28.0-62.0) fl RDW Coeff of Rommel 18 H (11.0-15.0) % Plt Count 139 L (150-400) K/uL MPV 9.30 (7.40-12.00) fL Neut % (Auto) 67.5 (48.0-80.0) % Lymph % (Auto) 25.5 (16.0-40.0) % [place] % (Auto) 6.7 (0.0-15.0) % Eos % (Auto) 0.3 (0.0-7.0) % Baso % (Auto) 0.0 (0.0-1.5) % Neut # (Auto) 2.2 (1.4-5.7) K/uL Lymph # (Auto) 0.8 (0.6-2.4) K/uL [place] # (Auto) 0.2 (0.0-0.8) K/uL Eos # (Auto) 0.0 (0.0-0.7) K/uL Baso # (Auto) 0.0 (0.0-0.1) K/uL Nucleated RBC % 0.0 /100WBC Nucleated RBCs # 0 K/uL Sodium 138 (136-146) mmol/L Potassium 5.0 (3.5-5.1) mmol/L Chloride 106 (98-110) mmol/L Carbon Dioxide 23 (21-31) mmol/L BUN 33 H (6.0-23.0) mg/dL Creatinine 2.1 H (0.6-1.5) mg/dL Est Cr Clr Drug Dosing 38.69 mL/min Estimated GFR (MDRD) 32.2 ml/min Glucose 93 (60-110) mg/dL Calcium 8.4 L (8.8-10.8) mg/dL Med Orders - Current: Current Medications Albuterol/Ipratropium (Duoneb 3.0-0.5 Mg/3 Ml) 3 ml NEB Q6HRRT [facility] Last Admin: 07/29/17 06:39 Dose: 3 ml Docusate Sodium (Colace) 200 mg PO BID PRN PRN Reason: Constipation Last Admin: 07/26/17 20:24 Dose: 200 mg Folic Acid (Folic Acid) 1 mg PO DAILY [facility] Last Admin: 07/29/17 08:03 Dose: 1 mg Heparin Sodium (Porcine) (Heparin Lock Flush 100 Units/Ml) 300 unit FLUSH ASDIRECTED PRN PRN Reason: clogged picc line Last Admin: 07/26/17 13:01 Dose: 300 unit Vancomycin HCl 1 gm/ Sodium (Chloride) 250 mls @ 167 mls/hr IV Q24H [facility] Last Admin: 07/29/17 09:54 Dose: 167 mls/hr Lorazepam (Ativan) 1 mg PO Q6H PRN PRN Reason: Anxiety Last Admin: 07/28/17 21:39 Dose: 1 mg Morphine Sulfate (Ms Contin) 60 mg PO TID [facility] Last Admin: 07/29/17 06:00 Dose: 60 mg Oxycodone HCl (Oxycodone) 5 mg PO TID PRN PRN Reason: Pain Last Admin: 07/28/17 19:17 Dose: 5 mg Prednisone (Prednisone) 40 mg PO WITHBREAKFAST [facility] Last Admin: 07/29/17 08:03 Dose: 40 mg Discontinued Medications Albuterol/Ipratropium (Duoneb 3.0-0.5 Mg/3 Ml) 3 ml NEB ONETIME ONE Stop: 07/23/17 12:18 Last Admin: 07/23/17 13:07 Dose: 3 ml Alteplase, Recombinant (Cathflo Activase) 2 mg IVPUSH ONETIME ONE Stop: 07/29/17 08:31 Atorvastatin Calcium (Lipitor) 80 mg PO BEDTIME [facility] Last Admin: 07/23/17 22:06 Dose: Not Given Enoxaparin Sodium (Lovenox) 40 mg SUBCUT DAILY [facility] Furosemide (Lasix) 10 mg IVPUSH ONETIME ONE Stop: 07/24/17 15:01 Last Admin: 07/24/17 14:26 Dose: 10 mg Furosemide (Lasix) 20 mg IVPUSH ONETIME ONE Stop: 07/24/17 20:01 Last Admin: 07/24/17 20:36 Dose: 20 mg Furosemide (Lasix) 20 mg IVPUSH ONETIME ONE Stop: 07/25/17 02:27 Last Admin: 07/25/17 02:40 Dose: 20 mg Furosemide (Lasix) 60 mg IVPUSH NOW ONE Stop: 07/25/17 15:43 Last Admin: 07/25/17 16:43 Dose: 60 mg Furosemide (Lasix) Confirm Administered Dose 80 mg .ROUTE .STK-MED ONE Stop: 07/25/17 16:41 Last Admin: 07/25/17 17:35 Dose: Not Given Furosemide (Lasix) 40 mg IVPUSH NOW ONE Stop: 07/27/17 07:01 Last Admin: 07/27/17 06:06 Dose: 40 mg Furosemide (Lasix) 40 mg IVPUSH NOW ONE Stop: 07/27/17 15:01 Last Admin: 07/27/17 15:02 Dose: 40 mg Hydromorphone HCl (Dilaudid) 1 mg IVPUSH Q6H PRN PRN Reason: Pain (moderate 4-6) Last Admin: 07/25/17 16:46 Dose: 1 mg Hydromorphone HCl (Dilaudid) 2 mg IVPUSH Q4H PRN PRN Reason: Pain (moderate 4-6) Last Admin: 07/26/17 14:27 Dose: 2 mg Hydromorphone HCl (Dilaudid) 2 mg IVPUSH ONETIME ONE Stop: 07/25/17 18:45 Last Admin: 07/25/17 18:54 Dose: 2 mg Sodium Chloride (Normal Saline) 1,000 mls @ 100 mls/hr IV ASDIRECTED [facility] Stop: 07/23/17 22:31 Last Infusion: 07/23/17 13:15 Dose: 100 mls/hr Levofloxacin/Dextrose 750 mg/ (Premix) 150 mls @ 100 mls/hr IV Q24H [facility] Last Admin: 07/24/17 18:27 Dose: 100 mls/hr Piperacillin Sod/Tazobactam (Sod 3.375 gm/ Sodium Chloride) 50 mls @ 100 mls/ hr IV Q6H [facility] Last Admin: 07/24/17 02:40 Dose: 100 mls/hr Vancomycin HCl 1 gm/ Sodium (Chloride) 250 mls @ 250 mls/hr IV Q24H [facility] Vancomycin HCl 1 gm/ Sodium (Chloride) 250 mls @ 250 mls/hr IV Q24H [facility] Vancomycin HCl 1 gm/ Sodium (Chloride) 250 mls @ 250 mls/hr IV Q24H [facility] Last Admin: 07/23/17 15:20 Dose: Not Given Vancomycin HCl 1 gm/ Sodium (Chloride) 250 mls @ 250 mls/hr IV Q24H [facility] Vancomycin HCl 1,250 mg/ (Sodium Chloride) 250 mls @ 250 mls/hr IV Q36H [facility] Last Admin: 07/23/17 22:39 Dose: Not Given Vancomycin HCl 1 gm/ Sodium (Chloride) 250 mls @ 250 mls/hr IV Q24H [facility] Last Admin: 07/24/17 21:27 Dose: 250 mls/hr Cefepime HCl 2 gm/ Premix 50 mls @ 100 mls/hr IV Q12H [facility] Last Admin: 07/25/17 08:41 Dose: 100 mls/hr Linezolid 600 mg/ Premix 300 mls @ 300 mls/hr IV Q12H [facility] Last Admin: 07/29/17 08:03 Dose: 300 mls/hr Sodium Chloride (Normal Saline) 1,000 mls @ 25 mls/hr IV ASDIRECTED [facility] Stop: 07/26/17 21:00 Last Admin: 07/26/17 14:24 Dose: 50 mls/hr Lorazepam (Ativan) 0.5 mg PO Q6H PRN PRN Reason: Anxiety Last Admin: 07/27/17 10:21 Dose: 0.5 mg Lorazepam (Ativan) 2 mg IVPUSH ONETIME ONE Stop: 07/25/17 18:46 Last Admin: 07/25/17 18:54 Dose: 2 mg Lorazepam (Ativan) 0.5 mg PO ONETIME ONE Stop: 07/27/17 11:06 Last Admin: 07/27/17 11:24 Dose: 0.5 mg Morphine Sulfate (Ms Contin) 30 mg PO TID SAVANNA Morphine Sulfate (Ms Contin) 60 mg PO TID [facility] Prednisone (Prednisone) 40 mg PO ONETIME ONE Stop: 07/23/17 13:02 Last Admin: 07/23/17 13:35 Dose: 40 mg Vancomycin HCl (Pharmacy To Dose - Vancomycin) 1 dose .XX ASDIRECTED [facility] - Exam Quality Assessment: Reports: Supplemental Oxygen (with activity) General: Reports: Alert, Oriented, Cooperative, No Acute Distress Lungs: Reports: Clear to Auscultation, Normal Respiratory Effort Cardiovascular: Reports: Regular Rate, Regular Rhythm, No Murmurs GI/Abdominal Exam: Normal Bowel Sounds, Soft, Non-Tender Extremities: Normal Range of Motion, Non-Tender, Pedal Edema (+1-2 pitting edema to BLE, patient reports this is near normal for him. Or what is has been.) . No: Redness Skin: Reports: Warm, Dry, Intact Neurological: Reports: No New Focal Deficit Psy/Mental Status: Reports: Alert, Normal Affect, Normal Mood Physical Findings Comments:: Picc line to R arm and R subclavian Permcath noted to R chest. with brusing surrounding this, no signs of infection to either. *Q Meaningful Use (DIS) - VTE *Q VTE Criteria *Q: - Stroke *Q Stroke Criteria *Q: - AMI *Q AMI Criteria *Q:
--- NOTE | 2017-07-29 13:13 | ECHO ---
EXAM DATE: 07/23/17 PATIENT'S AGE: 62 The echocardiogram report can be seen in this patient's EMR (Electronic Medical Record) in the Reports section. The report has also been scanned into PACs. [place]
== END 2017-07-29 13:45 | disposition home or self-care (01) | DRG 190 ==
LOC: MW.ED 12:01 → EEVIPCON 13:01 → MW.MS 13:01 → UNDODISIN 07-29 13:45
PROVIDERS: ADMIT Internal Medicine; ATTEND Internal Medicine
PROC: 30233N1 Transfusion of Nonautologous Red Blood Cells into Peripheral Vein, Percutaneous Approach (ICD-10-PCS; principal; 2017-07-23)
DX: R06.00 Dyspnea, unspecified (principal); J44.0 Chronic obstructive pulmonary disease with (acute) lower respiratory infection; J44.9 Chronic obstructive pulmonary disease, unspecified; J15.212 Pneumonia due to Methicillin resistant Staphylococcus aureus; F17.200 Nicotine dependence, unspecified, uncomplicated; N17.9 Acute kidney failure, unspecified; J90 Pleural effusion, not elsewhere classified; S37.29XA Other injury of bladder, initial encounter; T83.83XA Hemorrhage due to genitourinary prosthetic devices, implants and grafts, initial encounter; J44.1 Chronic obstructive pulmonary disease with (acute) exacerbation; D63.8 Anemia in other chronic diseases classified elsewhere; N18.9 Chronic kidney disease, unspecified; R09.02 Hypoxemia; M54.9 Dorsalgia, unspecified; R06.02 Shortness of breath; X58.XXXA Exposure to other specified factors, initial encounter; Y92.230 Patient room in hospital as the place of occurrence of the external cause; F10.10 Alcohol abuse, uncomplicated; Z87.891 Personal history of nicotine dependence; Z86.14 Personal history of Methicillin resistant Staphylococcus aureus infection; Z87.09 Personal history of other diseases of the respiratory system; Z79.899 Other long term (current) drug therapy
CPT/HCPCS: 36415; 83605; 86850; 86900; 86901; 86920 ×2; 86921 ×2; 86922 ×2; 87040 ×2; 96360; 99285; J7040; 36430; 71010; 71010-26; 71020; 71020-26; 74176; 74176-26; 80048; 80053; 80076; 80202; 81001; 82272; 82728; 83550; 85014; 85018; 85025; 85027; 85652; 87070; 87077; 87086; 87186; 87205; 93005; 93306; 94640; A9270-GY; J0692; J1170; J1642; J1940; J1956; J2020; J2060; J2543; J3370; J7050; P9016

== ENCOUNTER 2017-08-21 10:59 | Day surgery (SDC) | payer MEDICARE ==
[~2017-08-21 10:59] MED LIST: Bupivacaine 0.25%/EPINEPHrine 1:200,000 10 ML SDV ONE; Midazolam 1 MG/ML 2 ML SDV ONE; Propofol 200 MG/20 ML SDV ONE; Sodium Chloride 0.9% 1,000 ML IV SCH; fentaNYL 100 MCG/2 ML SDV ONE
--- NOTE | 2017-08-21 11:31 | PCM.PREANE ---
Preanesthetic Assessment - Anesthesia/Transfusion/Family Hx Anesthesia History: Prior Anesthesia Without Reaction Family History of Anesthesia Reaction: No Transfusion History: Prior Transfusion Without Reaction - Review of Systems General: No Symptoms Pulmonary: Shortness of Breath Cardiovascular: Dyspnea on Exertion - Physical Assessment NPO Status Date: 08/20/17 Height: 1.8 m Weight: 99.79 kg ASA Class: 4 Mental Status: Alert & Oriented x3 Airway Class: Mallampati = 2 ROM/Head Extension: Full Lungs: Clear to Auscultation, Normal Respiratory Effort Cardiovascular: Regular Rate, Regular Rhythm - Allergies Allergies/Adverse Reactions: Allergies Allergy/AdvReac Type Severity Reaction Status Date / Time No Known Allergies Allergy Verified 08/19/17 17:19 - Acknowledgements Anesthesia Type Planned: MAC Pt an Appropriate Candidate for the Planned Anesthesia: Yes Alternatives and Risks of Anesthesia Discussed w Pt/Guardian: Yes Pt/Guardian Understands and Agrees with Anesthesia Plan: Yes Additional Comments: PMH: severe COPD, on home O2, hx of MRSA pneunomia, poor historian, alcohol abuse, PLAN: MAC PreAnesthesia Questionnaire - Past Health History Medical/Surgical History: Denies Medical/Surgical History HEENT History: Reports: Hard of Hearing Other HEENT History: uses reading glasses, hard of hearing in both ears Cardiovascular History: Reports: High Cholesterol, Other (See Below) Other Cardiovascular History: stopped taking Lipitor, states he "coded" x2 after pneumothorax. Currently has swollen legs. Respiratory History: Reports: COPD, Pneumothorax, SOB Other Respiratory History: spontaneous pneumothorax on Labor Day of this year, had chest tubes put in. States that now SaO2 on room air at rest is 96%, after walking around is 78%. Uses O2 after activity. Gastrointestinal History: Reports: None Genitourinary History: Reports: Dialysis, Renal Disease Other Genitourinary History: states kidneys were "damaged" after pneumothorax, dialysis catheter was put in and he was dialysed one time. Musculoskeletal History: Reports: Back Pain, Chronic Neurological History: Reports: Concussion, Migraines, Other (See Below) Other Neuro History: no migranes recently, states had spinal taps x6 before his back surgeries (x3)-L5-S1. Currently complains of " pricklys" on the top of his head just like he had before spinal taps in the past. Also has "pricklys " in his right hand between thumb and index finger and his hand" cramps up". Psychiatric History: Reports: None Endocrine/Metabolic History: Reports: Obesity/BMI 30+ Hematologic History: Reports: Anemia Other Hematologic History: states current Hgb is 8.3 Oncologic (Cancer) History: Reports: None Dermatologic History: Reports: None Other Dermatologic History: currently has blisters on the top of his feet - Infectious Disease History Infectious Disease History: Reports: Chicken Pox Other Infectious Disease History: staph infection - Past Surgical History HEENT Surgical History: Reports: Other (See Below) Other HEENT Surgeries/Procedures: surgery on right eardrum as a child Neurological Surgical History: Reports: Laminectomy - SUBSTANCE USE Smoking Status *Q: Former Smoker Tobacco Use Within Last Twelve Months: Cigarettes Second Hand Smoke Exposure: No Days Per Week of Alcohol Use: 7 Number of Drinks Per Day: 2 Total Drinks Per Week: 14 Recreational Drug Use History: No - HOME MEDS Home Medications: Home Meds oxyCODONE 5 mg PO TID PRN 06/14/17 [History] Morphine [MS Contin] 60 mg PO TID 07/23/17 [History] Albuterol Sulfate 3 ml INH Q4H 08/19/17 [History] - CURRENT (IN HOUSE) MEDS Current Meds: Current Medications Sodium Chloride (Normal Saline) 1,000 mls @ 125 mls/hr IV ASDIRECTED SAVANNA Discontinued Medications Bupivacaine HCl/Epinephrine Bitart (Marcaine 0.25%/Epinephrine 1:200,000) Confirm Administered Dose 10 ml .ROUTE .STK-MED ONE Stop: 08/21/17 09:44 Fentanyl (Sublimaze) Confirm Administered Dose 100 mcg .ROUTE .STK-MED ONE Stop: 08/21/17 09:42 Lidocaine HCl (Xylocaine-Mpf 1%) Confirm Administered Dose 5 ml .ROUTE .STK-MED ONE Stop: 08/21/17 09:42 Midazolam HCl (Versed 1 Mg/Ml) Confirm Administered Dose 2 mg .ROUTE .STK-MED ONE Stop: 08/21/17 09:42 Propofol (Diprivan 20 Ml) Confirm Administered Dose 200 mg .ROUTE .STK-MED ONE Stop: 08/21/17 09:42
[2017-08-21] MEDS ORDERED: Acetaminophen/oxyCODONE 325-5 MG Tab PO ONE (12:05)
[2017-08-21] MEDS ORDERED: Bupivacaine 0.25%/EPINEPHrine 1:200,000 10 ML SDV ONE (12:10)
--- NOTE | 2017-08-21 13:03 | PCM48HPAN ---
Post Anesthesia Note - EVALUATION WITHIN 48HRS OF ANESTHETIC Vital Signs in Normal Range: Yes Patient Participated in Evaluation: Yes Respiratory Function Stable: Yes Airway Patent: Yes Cardiovascular Function Stable: Yes Hydration Status Stable: Yes Pain Control Satisfactory: Yes Nausea and Vomiting Control Satisfactory: Yes Mental Status Recovered: Yes - COMMENTS/OBSERVATIONS Free Text/Narrative:: pt bypassed phase 1 recovery. Awake and alert upon arrival phase 2
--- NOTE | 2017-08-21 13:06 | PCM.OPNOTE ---
- General Post-Op/Procedure Note Date of Surgery/Procedure: 08/21/17 Operative Procedure(s): hd cath removal Findings: cath removed en bloc, tip is intact; [id number] Pre Op Diagnosis: acute kidney injury Post-Op Diagnosis: Same Anesthesia Technique: Moderate Sedation Primary Surgeon: David Erazo Complications: None Condition: Good
--- NOTE | 2017-08-21 14:03 | OR ---
SURGEON: David Erazo MD DATE OF PROCEDURE: 08/21/2017 PREOPERATIVE DIAGNOSIS: Acute kidney injury. POSTOPERATIVE DIAGNOSIS: Acute kidney injury. PROCEDURE PERFORMED: Dialysis catheter removed. COMPLICATIONS: None. FINDINGS: The dialysis catheter was removed. The tip is intact. PROCEDURE IN DETAIL: The patient was taken to the operating room and placed in a supine position. Upon induction of mild general sedation, MAC and local, the patient was then prepped and draped in a sterile fashion. IV antibiotic, 1 g Ancef, was given and after assessment of appropriate landmark, the catheter track was infused with a lidocaine with epi and using a skin scalpel, the catheter opening was gently dissected all the way to the cuff and then applied pressure on the tunnel, and the catheter was then removed en bloc. This was then followed by applied pressure for 10 minutes at the track opening and then the opening was closed with 3-0 Vicryl, and skin incision closed with 3-0 Ethilon and followed by appropriate dressing. The patient was then awakened, transferred to recovery in hemodynamically stable condition. The patient tolerated the procedure well. There were no intraoperative complications. MAGDIEL / ELIZA /[id number]
[2017-08-21 14:22] VITALS: BP 112/52
== END 2017-08-21 13:30 | disposition home or self-care (01) ==
LOC: MW.SDS 10:59
PROVIDERS: ATTEND Surgery
DX: N17.9 Acute kidney failure, unspecified (principal); J44.9 Chronic obstructive pulmonary disease, unspecified; F17.210 Nicotine dependence, cigarettes, uncomplicated; E66.9 Obesity, unspecified; Z86.14 Personal history of Methicillin resistant Staphylococcus aureus infection; Z87.01 Personal history of pneumonia (recurrent); Z99.81 Dependence on supplemental oxygen; Z79.899 Other long term (current) drug therapy; Z98.890 Other specified postprocedural states; Z68.30 Body mass index [BMI] 30.0-30.9, adult
CPT/HCPCS: 49422; J0690; J2250; J3010; 00700; J2704

== ENCOUNTER 2018-04-07 04:31 | Emergency (ER) | payer MEDICARE ==
--- NOTE | 2018-04-07 04:52 | EDM.PDOC ---
ED HPI GENERAL MEDICAL PROBLEM - General Chief Complaint: General Stated Complaint: LEFT SHOULDER/HIP PAIN Time Seen by Provider: 04/07/18 04:51 Source of Information: Reports: Patient - History of Present Illness INITIAL COMMENTS - FREE TEXT/NARRATIVE: HISTORY AND PHYSICAL: History of present illness: [Patient states that yesterday evening he was at [employer] tripped and fell landing on his left shoulder since he has had left hip and shoulder pain he did present by private vehicle approximately 6 hours since the fall he arrives ambulatory no acute distress denies head injury or loss of consciousness no fever nausea vomiting chills sweats rates pain 6 out of 10 worse with movement 1 out of 10 pain at rest] Review of systems: As per history of present illness and below otherwise all systems reviewed and negative. Past medical history: As per history of present illness and as reviewed below otherwise noncontributory. Surgical history: As per history of present illness and as reviewed below otherwise noncontributory. Social history: No reported history of drug or alcohol abuse. Family history: As per history of present illness and as reviewed below otherwise noncontributory. Physical exam: HEENT: Atraumatic, normocephalic, pupils reactive, negative for conjunctival pallor or scleral icterus, mucous membranes moist, throat clear, neck supple, nontender, trachea midline. Lungs: Clear to auscultation, breath sounds equal bilaterally, chest nontender. Heart: S1S2, regular, negative for clicks, rubs, or JVD. Abdomen: Soft, nondistended, nontender. Negative for masses or hepatosplenomegaly. Negative for costovertebral tenderness. Pelvis: Stable nontender. Genitourinary: Deferred. Rectal: Deferred. Extremities: Atraumatic, negative for cords or calf pain. Neurovascular unremarkable. Neuro: Awake, alert, oriented. Cranial nerves II through XII unremarkable. Cerebellum unremarkable. Motor and sensory unremarkable throughout. Exam nonfocal. Diagnostics: [Left shoulder complete Left hip with pelvis ] Therapeutics: [Rest ice ibuprofen Continue current medications ] Impression: [Left shoulder injury l eft hip injury Definitive disposition and diagnosis as appropriate pending reevaluation and review of above. Left Shoulder Pain Score (Numeric/FACES): 10 - Related Data Allergies Allergy/AdvReac Type Severity Reaction Status Date / Time No Known Allergies Allergy Verified 08/19/17 17:19 Home Meds: Home Meds oxyCODONE 5 mg PO TID PRN 06/14/17 [History] Morphine [MS Contin] 60 mg PO TID 07/23/17 [History] Past Medical History - Past Health History Medical/Surgical History: Denies Medical/Surgical History HEENT History: Reports: Hard of Hearing Other HEENT History: uses reading glasses, hard of hearing in both ears Cardiovascular History: Reports: High Cholesterol, Other (See Below) Other Cardiovascular History: stopped taking Lipitor, states he "coded" x2 after pneumothorax. Currently has swollen legs. Respiratory History: Reports: COPD, Pneumothorax, SOB Other Respiratory History: spontaneous pneumothorax on Labor Day of this year, had chest tubes put in. States that now SaO2 on room air at rest is 96%, after walking around is 78%. Uses O2 after activity. Gastrointestinal History: Reports: None Genitourinary History: Reports: Dialysis, Renal Disease Other Genitourinary History: states kidneys were "damaged" after pneumothorax, dialysis catheter was put in and he was dialysed one time. Musculoskeletal History: Reports: Back Pain, Chronic Neurological History: Reports: Concussion, Migraines, Other (See Below) Other Neuro History: no migranes recently, states had spinal taps x6 before his back surgeries (x3)-L5-S1. Currently complains of " pricklys" on the top of his head just like he had before spinal taps in the past. Also has "pricklys " in his right hand between thumb and index finger and his hand" cramps up". Psychiatric History: Reports: None Endocrine/Metabolic History: Reports: Obesity/BMI 30+ Hematologic History: Reports: Anemia Other Hematologic History: states current Hgb is 8.3 Oncologic (Cancer) History: Reports: None Dermatologic History: Reports: None Other Dermatologic History: currently has blisters on the top of his feet - Infectious Disease History Infectious Disease History: Reports: Chicken Pox Other Infectious Disease History: staph infection - Past Surgical History HEENT Surgical History: Reports: Other (See Below) Other HEENT Surgeries/Procedures: surgery on right eardrum as a child Neurological Surgical History: Reports: Laminectomy Social & Family History - Family History Family Medical History: Noncontributory - Tobacco Use Smoking Status *Q: Former Smoker Used Tobacco, but Quit: Yes Month/Year Tobacco Last Used: 2017 ED ROS GENERAL - Review of Systems Review Of Systems: See Below ED EXAM, GENERAL - Physical Exam Exam: See Below Course - Vital Signs Last Recorded V/S: Last Vital Signs Temp 97.6 F 04/07/18 04:52 Pulse 86 04/07/18 04:52 Resp 18 04/07/18 04:52 BP 131/78 04/07/18 04:52 Pulse Ox 93 L 04/07/18 04:52 - Orders/Labs/Meds Orders: Active Orders 24 hr Category Date Time Status Hip Min 2V or 3V w Pelvis Lt [CR] Stat Exams 04/07/18 04:50 Ordered Shoulder Comp Lt [CR] Stat Exams 04/07/18 04:50 Ordered Departure - Departure Time of Disposition: 05:46 Disposition: Home, Self-Care 01 Condition: Good Clinical Impression: Right shoulder injury, Contusion - Discharge Information Referrals: PCP,None [Primary Care Provider] - Forms: ED Department Discharge Additional Instructions: The following information is given to patients seen in the emergency department who are being discharged to home. This information is to outline your options for follow-up care. We provide all patients seen in our emergency department with a follow-up referral. The need for follow-up, as well as the timing and circumstances, are variable depending upon the specifics of your emergency department visit. If you don't have a primary care physician on staff, we will provide you with a referral. We always advise you to contact your personal physician following an emergency department visit to inform them of the circumstance of the visit and for follow-up with them and/or the need for any referrals to a consulting specialist. The emergency department will also refer you to a specialist when appropriate. This referral assures that you have the opportunity for follow-up care with a specialist. All of these measure are taken in an effort to provide you with optimal care, which includes your follow-up. Under all circumstances we always encourage you to contact your private physician who remains a resource for coordinating your care. When calling for follow-up care, please make the office aware that this follow-up is from your recent emergency room visit. If for any reason you are refused follow-up, please contact the [facility] emergency department at and asked to speak to the emergency department charge nurse. - My Orders Last 24 Hours: My Active Orders 04/07/18 04:50 Hip Min 2V or 3V w Pelvis Lt [CR] Stat Shoulder Comp Lt [CR] Stat - Assessment/Plan Last 24 Hours: My Active Orders 04/07/18 04:50 Hip Min 2V or 3V w Pelvis Lt [CR] Stat Shoulder Comp Lt [CR] Stat
[2018-04-07 06:06] VITALS: BP 113/76
--- NOTE | 2018-04-07 09:49 | CR ---
EXAM DATE: 04/07/18 PATIENT'S AGE: 62 Patient: [facility] Facility: [place], [place] Site . Site : 1955 Study: XRay Shoulder Left [id number]/19/2018 5:40:20 AM Ordering Physician: Marilu Maynard Final Report: INDICATION: Fall, Shoulder pain TECHNIQUE: Shoulder radiograph 3 views left COMPARISON: None FINDINGS: Bones: No acute fractures or aggressive bone lesions are identified. Joints: The glenohumeral is unremarkable. The acromioclavicular joint is unremarkable. Soft tissues: Unremarkable. The visualized hemithorax is unremarkable in appearance. No radiopaque foreign bodies are seen. IMPRESSION: 1. No acute osseous injuries or abnormalities are noted. Dictated by: nAg Villar MD @ 04/07/2018 05:43:58 (Electronic Signature) Report Signed by Proxy. CLINTON
--- NOTE | 2018-04-07 09:50 | CR ---
EXAM DATE: 04/07/18 PATIENT'S AGE: 62 Patient: [facility] Facility: [place], [place] Site . Site : 1955 Study: XRay Extremity Left [id number]/19/2018 5:40:58 AM Ordering Physician: Marilu Maynard Final Report: INDICATION: Fall, hip pain TECHNIQUE: Pelvis radiograph, Hip radiograph 3 views left COMPARISON: None FINDINGS: Bones: No acute fractures or aggressive bone lesions are identified. Joints: The hip joint is unremarkable. The visualized sacroiliac joints are unremarkable in appearance. The pubic symphysis is normal in appearance. Soft tissues: Unremarkable. The visualized bowel gas pattern of the pelvis is unremarkable in appearance. No radiopaque foreign bodies are seen. IMPRESSION: 1. No acute osseous injuries or abnormalities are noted. Dictated by Ang Villar MD @ 04/07/2018 5:44:55 AM Dictated by: Ang Villar MD @ 04/07/2018 05:44:58 (Electronic Signature) Report Signed by Proxy. CLINTON
== END 2018-04-07 06:00 | disposition home or self-care (01) ==
LOC: MW.ED 04:31
DX: S40.012A Contusion of left shoulder, initial encounter (principal); S79.912A Unspecified injury of left hip, initial encounter; J44.9 Chronic obstructive pulmonary disease, unspecified; E78.00 Pure hypercholesterolemia, unspecified; Z87.891 Personal history of nicotine dependence; W01.198A Fall on same level from slipping, tripping and stumbling with subsequent striking against other object, initial encounter
CPT/HCPCS: 73030-26-LT; 73030-LT; 73502-26-LT; 73502-LT; 99283

== ENCOUNTER 2018-10-28 10:58 | Emergency (ER) | payer MEDICARE ==
[2018-10-28 12:04] VITALS: BP 137/56
--- NOTE | 2018-10-28 12:09 | EDM.PDOC ---
ED HPI GENERAL MEDICAL PROBLEM - General Chief Complaint: Upper Extremity Injury/Pain Stated Complaint: INJURED LEFT HAND Time Seen by Provider: 10/28/18 12:09 Source of Information: Reports: Patient History Limitations: Reports: No Limitations - History of Present Illness INITIAL COMMENTS - FREE TEXT/NARRATIVE: HISTORY AND PHYSICAL: History of present illness: Patient is a 63-year-old male here with complaint of left hand pain. He states is bothering him for about 10-14 days, he does recall hitting his hand with a hammer couple of weeks ago. He states it's been very painful and swollen and he has a hard time making a fist. He is complaining of pain and tingling in the thumb, index, middle finger. He does have a history of carpal tunnel but does not wear night splints. The patient takes morphine for his chronic back pain and states this doesn't touch the pain in his hand. He denies fevers or chills. Review of systems: As per history of present illness and below otherwise all systems reviewed and negative. Past medical history: As per history of present illness and as reviewed below otherwise noncontributory. Surgical history: As per history of present illness and as reviewed below otherwise noncontributory. Social history: No reported history of drug or alcohol abuse. Family history: As per history of present illness and as reviewed below otherwise noncontributory. Physical exam: General: Patient sitting comfortably in no acute distress and nontoxic appearing HEENT: Atraumatic, normocephalic, pupils reactive, negative for conjunctival pallor or scleral icterus, mucous membranes moist, throat clear, neck supple, nontender, trachea midline. No meningeal signs. Lungs: Clear to auscultation, breath sounds equal bilaterally, chest nontender. Heart: S1S2, regular, negative for clicks, rubs, or overt murmur. Abdomen: Soft, nondistended, nontender. Negative for masses or hepatosplenomegaly. Negative for costovertebral tenderness. Pelvis: Stable nontender. Genitourinary: Deferred. Rectal: Deferred. Extremities: Left hand with minimal swelling, skin is intact. No pain with palpation but pain with making a fist of the thumb, index, and middle finger. Atraumatic, negative for cords or calf pain. Neurovascular unremarkable. Neuro: Awake, alert, oriented. Cranial nerves II through XII unremarkable. Cerebellum unremarkable. Motor and sensory unremarkable throughout. Exam nonfocal. Notes: Hand x-ray: Mild joint space narrowing and degenerative changes within first interphalangeal joint and mild osteophyte formation noted at the second and third metacarpals. Diagnostics: x-ray left hand Therapeutics: None Prescriptions: Indomethacin Impression: Right hand pain, osteoarthritis Plan: 1. Ice, elevate, and take medication as needed as instructed. 2. Follow up with primary care provider 3. Return to ED as needed as discussed Definitive disposition and diagnosis as appropriate pending reevaluation and review of above. left hand, Pain Score (Numeric/FACES): 10 - Related Data Allergies Allergy/AdvReac Type Severity Reaction Status Date / Time No Known Allergies Allergy Verified 10/28/18 12:04 Home Meds: Home Meds oxyCODONE 5 mg PO TID PRN 06/14/17 [History] Morphine [MS Contin] 60 mg PO TID 07/23/17 [History] Indomethacin 25 mg PO TID #20 capsule 10/28/18 [Rx] Past Medical History - Past Health History Medical/Surgical History: Denies Medical/Surgical History HEENT History: Reports: Hard of Hearing Other HEENT History: uses reading glasses, hard of hearing in both ears Cardiovascular History: Reports: Other (See Below) Other Cardiovascular History: stopped taking Lipitor, states he "coded" x2 after pneumothorax. Currently has swollen legs. Respiratory History: Reports: COPD, Pneumothorax, SOB Other Respiratory History: spontaneous pneumothorax on Labor Day of this year, had chest tubes put in. States that now SaO2 on room air at rest is 96%, after walking around is 78%. Uses O2 after activity. Gastrointestinal History: Reports: None Genitourinary History: Reports: Dialysis, Renal Disease Other Genitourinary History: states kidneys were "damaged" after pneumothorax, dialysis catheter was put in and he was dialysed one time. Musculoskeletal History: Reports: Back Pain, Chronic Neurological History: Reports: Concussion, Migraines, Other (See Below) Other Neuro History: no migranes recently, states had spinal taps x6 before his back surgeries (x3)-L5-S1. Currently complains of " pricklys" on the top of his head just like he had before spinal taps in the past. Also has "pricklys " in his right hand between thumb and index finger and his hand" cramps up". Psychiatric History: Reports: None Endocrine/Metabolic History: Reports: Obesity/BMI 30+ Hematologic History: Reports: Anemia Other Hematologic History: states current Hgb is 8.3 Oncologic (Cancer) History: Reports: None Dermatologic History: Reports: None Other Dermatologic History: currently has blisters on the top of his feet - Infectious Disease History Infectious Disease History: Reports: Chicken Pox, Measles, Mumps Other Infectious Disease History: staph infection - Past Surgical History HEENT Surgical History: Reports: Other (See Below) Other HEENT Surgeries/Procedures: surgery on right eardrum as a child Neurological Surgical History: Reports: Laminectomy Social & Family History - Family History Family Medical History: Noncontributory - Tobacco Use Smoking Status *Q: Former Smoker Used Tobacco, but Quit: Yes Month/Year Tobacco Last Used: 1 year ago - Caffeine Use Caffeine Use: Reports: Coffee - Alcohol Use Days Per Week of Alcohol Use: 7 Number of Drinks Per Day: 4 Total Drinks Per Week: 28 - Recreational Drug Use Recreational Drug Use: No Review of Systems - Review of Systems Review Of Systems: ROS reveals no pertinent complaints other than HPI. ED EXAM, GENERAL - Physical Exam Exam: See Below (see dictation) Course - Vital Signs Last Recorded V/S: Last Vital Signs Temp 97.9 F 10/28/18 12:00 Pulse 72 10/28/18 12:00 Resp 16 10/28/18 12:00 BP 137/56 L 10/28/18 12:00 Pulse Ox 94 L 10/28/18 12:00 Departure - Departure Time of Disposition: 13:12 Disposition: Home, Self-Care 01 Condition: Good Clinical Impression: Hand pain, left, Osteoarthritis - Discharge Information Prescriptions: Indomethacin 25 mg PO TID #20 capsule Referrals: Osito Camilo MD [Primary Care Provider] - Forms: ED Department Discharge Additional Instructions: The following information is given to patients seen in the emergency department who are being discharged to home. This information is to outline your options for follow-up care. We provide all patients seen in our emergency department with a follow-up referral. The need for follow-up, as well as the timing and circumstances, are variable depending upon the specifics of your emergency department visit. If you don't have a primary care physician on staff, we will provide you with a referral. We always advise you to contact your personal physician following an emergency department visit to inform them of the circumstance of the visit and for follow-up with them and/or the need for any referrals to a consulting specialist. The emergency department will also refer you to a specialist when appropriate. This referral assures that you have the opportunity for follow-up care with a specialist. All of these measure are taken in an effort to provide you with optimal care, which includes your follow-up. Under all circumstances we always encourage you to contact your private physician who remains a resource for coordinating your care. When calling for follow-up care, please make the office aware that this follow-up is from your recent emergency room visit. If for any reason you are refused follow-up, please contact the [facility] Emergency Department at and asked to speak to the emergency department charge nurse. [address] [address] 1. Ice, elevate, and take medication as needed as instructed. Night splints for carpal tunnel as discussed. 2. Follow up with primary care provider 3. Return to ED as needed as discussed
--- NOTE | 2018-10-28 12:57 | CR ---
EXAMINATION: Left hand HISTORY: Pain COMPARISON: None TECHNIQUE: 2 views FINDINGS/IMPRESSION: There is no acute osseous abnormality, dislocation, or fracture. Bone mineralization and joint spaces are preserved. Radiocarpal alignment is normal. Mild joint space narrowing and degenerative changes within the first interphalangeal joint and mild osteophyte formation noted at the second and third metacarpals.
== END 2018-10-28 13:27 | disposition home or self-care (01) ==
LOC: MW.ED 10:58
DX: M19.90 Unspecified osteoarthritis, unspecified site (principal); M79.642 Pain in left hand; E66.9 Obesity, unspecified; Z99.2 Dependence on renal dialysis; Z87.891 Personal history of nicotine dependence
CPT/HCPCS: 73120-26-LT; 73120-LT; 99283

== ENCOUNTER 2018-12-09 10:37 | Emergency (ER) | payer MEDICARE ==
--- NOTE | 2018-12-09 11:00 | EDM.PDOC ---
ED HPI GENERAL MEDICAL PROBLEM - General Chief Complaint: Allergic Reaction Stated Complaint: ALLERGIC REACTION Time Seen by Provider: 12/09/18 10:39 Source of Information: Reports: Patient History Limitations: Reports: No Limitations - History of Present Illness INITIAL COMMENTS - FREE TEXT/NARRATIVE: HISTORY AND PHYSICAL: History of present illness: Patient is a 63-year-old male presents to the clinic today with concerns of shortness of breath. Patient states he thinks he is having allergic reaction to his indomethacin. He has been taking his indomethacin for about a month and a half for RA; without issues prior to today. He states he took a pill and immediately felt short of breath. Patient has not had any swelling of his throat , eyes, or rashes. No angioedema noted. Patient states his shortness of breath just feels as if he can't take a big deep breath. He denies any chest pain at this time. Patient is not on home oxygen but does have several inhalers for his COPD. He is currently not smoking. He denies fever, chills, cough, nausea, vomiting, diarrhea, throat pain, ear pain, or all other GI, , cardiovascular, or respiratory concerns. Patient does have a history of COPD and has inhalers at home. Review of systems: As per history of present illness and below otherwise all systems reviewed and negative. Past medical history: As per history of present illness and as reviewed below otherwise noncontributory. Surgical history: As per history of present illness and as reviewed below otherwise noncontributory. Social history: See social history for further information Family history: As per history of present illness and as reviewed below otherwise noncontributory. Physical exam: General: Well-developed and well-nourished 63-year-old male. Alert and oriented. Nontoxic appearing and in no acute distress. HEENT: Atraumatic, normocephalic, pupils equal and reactive bilaterally, negative for conjunctival pallor or scleral icterus, mucous membranes moist, TMs normal bilaterally, throat clear, neck supple, nontender, trachea midline. No drooling or trismus noted. No meningeal signs. No hot potato voice noted. Lungs: Diminished, but clear to auscultation, breath sounds equal bilaterally, chest nontender. Heart: S1S2, regular rate and rhythm without overt murmur Abdomen: Obese, soft, nondistended, nontender. Negative for masses or hepatosplenomegaly. Negative for costovertebral tenderness. Pelvis: Stable nontender. Genitourinary: Deferred. Rectal: Deferred. Skin: Intact, warm, dry. No lesions or rashes noted. Extremities: Atraumatic, negative for cords or calf pain. Neurovascular unremarkable. Neuro: Awake, alert, oriented. Cranial nerves II through XII unremarkable. Cerebellum unremarkable. Motor and sensory unremarkable throughout. Exam nonfocal. Notes: On exam, patient does have diminished lung sounds. Discussed the need for chest x-ray and lab work but patient declines this at this time. He is agreeable to the Solu-Medrol and DuoNeb treatments in the ER. Discussed the importance of lab work and chest x-ray but patient states over return if he changes his mind. Will treat according to COPD exacerbation. Supportive care measures were reviewed and discussed. Voices understanding and is agreeable to plan of care. Denies any further questions or concerns at this time. Diagnostics: Patient declines all diagnostics at this time. Therapeutics: Duo Neb, Solu-Medrol IM Prescription: Medrol Dosepak, Azithromycin Impression: COPD exacerbation vs allergic reaction Plan: 1. Take medications as prescribed. Continue to use at home inhalers routinely and as prescribed. 2. Stop taking your indomethacin encases the potential allergen until you are followed up with your primary care provider. 3. Follow-up with your primary care provider in regards to this visit in the next 1-2 days. 4. Return to the ED as needed and as discussed. Definitive disposition and diagnosis as appropriate pending reevaluation and review of above. - Related Data Allergies Allergy/AdvReac Type Severity Reaction Status Date / Time No Known Allergies Allergy Verified 12/09/18 10:39 Home Meds: Home Meds oxyCODONE 5 mg PO TID PRN 06/14/17 [History] Morphine [MS Contin] 60 mg PO TID 07/23/17 [History] Indomethacin 25 mg PO TID #20 capsule 10/28/18 [Rx] Past Medical History - Past Health History Medical/Surgical History: Denies Medical/Surgical History HEENT History: Reports: Hard of Hearing Other HEENT History: uses reading glasses, hard of hearing in both ears Cardiovascular History: Reports: Other (See Below) Other Cardiovascular History: stopped taking Lipitor, states he "coded" x2 after pneumothorax. Currently has swollen legs. Respiratory History: Reports: COPD, Pneumothorax, SOB Other Respiratory History: spontaneous pneumothorax on Labor Day of this year, had chest tubes put in. States that now SaO2 on room air at rest is 96%, after walking around is 78%. Uses O2 after activity. Gastrointestinal History: Reports: None Genitourinary History: Reports: Dialysis, Renal Disease Other Genitourinary History: states kidneys were "damaged" after pneumothorax, dialysis catheter was put in and he was dialysed one time. Musculoskeletal History: Reports: Back Pain, Chronic Neurological History: Reports: Concussion, Migraines, Other (See Below) Other Neuro History: no migranes recently, states had spinal taps x6 before his back surgeries (x3)-L5-S1. Currently complains of " pricklys" on the top of his head just like he had before spinal taps in the past. Also has "pricklys " in his right hand between thumb and index finger and his hand" cramps up". Psychiatric History: Reports: None Endocrine/Metabolic History: Reports: Obesity/BMI 30+ Hematologic History: Reports: Anemia Other Hematologic History: states current Hgb is 8.3 Immunologic History: Reports: None Oncologic (Cancer) History: Reports: None Dermatologic History: Reports: None Other Dermatologic History: currently has blisters on the top of his feet - Infectious Disease History Infectious Disease History: Reports: Chicken Pox, Measles, Mumps Other Infectious Disease History: staph infection - Past Surgical History Head Surgeries/Procedures: Reports: None HEENT Surgical History: Reports: Other (See Below) Other HEENT Surgeries/Procedures: surgery on right eardrum as a child Cardiovascular Surgical History: Reports: None Respiratory Surgical History: Reports: None GI Surgical History: Reports: None Male Surgical History: Reports: None Endocrine Surgical History: Reports: None Neurological Surgical History: Reports: Laminectomy Musculoskeletal Surgical History: Reports: None Oncologic Surgical History: Reports: None Dermatological Surgical History: Reports: None Social & Family History - Family History Family Medical History: Noncontributory - Tobacco Use Smoking Status *Q: Former Smoker Used Tobacco, but Quit: Yes Month/Year Tobacco Last Used: 2 years - Caffeine Use Caffeine Use: Reports: Coffee - Recreational Drug Use Recreational Drug Use: No ED ROS ALLERGIC REACTION - Review of Systems Review Of Systems: ROS reveals no pertinent complaints other than HPI. ED EXAM GENERAL NO PERIP PULSE - Physical Exam Exam: See Below (See dictation) Course - Vital Signs Last Recorded V/S: Last Vital Signs Temp 97.1 F 12/09/18 10:40 Pulse 72 12/09/18 11:29 Resp 15 12/09/18 11:29 BP 122/76 12/09/18 11:29 Pulse Ox 93 L 12/09/18 11:29 - Orders/Labs/Meds Orders: Active Orders 24 hr Category Date Time Status RT Aerosol Therapy [RC] ASDIRECTED Care 12/09/18 10:46 Active Meds: Medications Discontinued Medications Generic Name Dose Route Start Last Admin Trade Name Freq PRN Reason Stop Dose Admin Albuterol/Ipratropium 3 ml 12/09/18 10:46 12/09/18 11:16 Duoneb 3.0-0.5 Mg/3 Ml NEB 12/09/18 10:47 3 ml ONETIME ONE Administration Methylprednisolone Sodium Succinate 125 mg 12/09/18 10:46 12/09/18 11:16 Solu-Medrol IM 12/09/18 10:47 125 mg ONETIME ONE Administration Departure - Departure Time of Disposition: 11:08 Disposition: Home, Self-Care 01 Clinical Impression: Shortness of breath - Discharge Information Instructions: Shortness of Breath, Adult, [id number] Referrals: PCP,None [Primary Care Provider] - Additional Instructions: The following information is given to patients seen in the emergency department who are being discharged to home. This information is to outline your options for follow-up care. We provide all patients seen in our emergency department with a follow-up referral. The need for follow-up, as well as the timing and circumstances, are variable depending upon the specifics of your emergency department visit. If you don't have a primary care physician on staff, we will provide you with a referral. We always advise you to contact your personal physician following an emergency department visit to inform them of the circumstance of the visit and for follow-up with them and/or the need for any referrals to a consulting specialist. The emergency department will also refer you to a specialist when appropriate. This referral assures that you have the opportunity for follow-up care with a specialist. All of these measure are taken in an effort to provide you with optimal care, which includes your follow-up. Under all circumstances we always encourage you to contact your private physician who remains a resource for coordinating your care. When calling for follow-up care, please make the office aware that this follow-up is from your recent emergency room visit. If for any reason you are refused follow-up, please contact the [facility] Emergency Department at and asked to speak to the emergency department charge nurse. [facility] [address] [place] [address] [facility] [address] [place] [address] 1. Take medications as prescribed. Continue to use at home inhalers routinely and as prescribed. 2. Stop taking your indomethacin encases the potential allergen until you are followed up with your primary care provider. 3. Follow-up with your primary care provider in regards to this visit in the next 1-2 days. 4. Return to the ED as needed and as discussed. - My Orders Last 24 Hours: My Active Orders 12/09/18 10:46 RT Aerosol Therapy [RC] ASDIRECTED - Assessment/Plan Last 24 Hours: My Active Orders 12/09/18 10:46 RT Aerosol Therapy [RC] ASDIRECTED
[2018-12-09] MEDS: Albuterol/Ipratropium 3.0-0.5 MG/3 ML Neb Soln NEB ONE (11:16)
[2018-12-09] MEDS: methylPREDNISolone Sodium Succinate 125 MG/2 ML SDV IM ONE (11:16)
[2018-12-09 11:29] VITALS: BP 122/76
== END 2018-12-09 11:30 | disposition home or self-care (01) ==
LOC: MW.ED 10:37
DX: R06.02 Shortness of breath (principal); J44.9 Chronic obstructive pulmonary disease, unspecified; Z79.899 Other long term (current) drug therapy; Z87.891 Personal history of nicotine dependence
CPT/HCPCS: 94640; 96372; 99283; J2930; J7620-GY

== ENCOUNTER 2025-05-15 13:31 | Emergency (ER) | payer MEDICARE, BC ==
[2025-05-15 13:50] VITALS: BP 133/87; PULSE 91
== END 2025-05-15 14:54 | disposition home or self-care (01) ==
LOC: MW.ED 13:31
DX: F11.23 Opioid dependence with withdrawal (principal); M54.9 Dorsalgia, unspecified; G89.29 Other chronic pain; J44.9 Chronic obstructive pulmonary disease, unspecified; E66.9 Obesity, unspecified; Z79.899 Other long term (current) drug therapy; Z68.34 Body mass index [BMI] 34.0-34.9, adult
CPT/HCPCS: 99282; 99283